=== PATIENT | male | born 1980 | race African-American/Black ===

== ENCOUNTER 2017-01-27 12:33 | Emergency (ER) | payer MEDICAID ==
[~2017-01-27] VITALS: Ht 185.4 cm; Wt 91.0 kg
[2017-01-27 12:56] VITALS: BP 151/94
== END 2017-01-27 19:30 | disposition left against medical advice (07) ==
LOC: ER 12:34
DX: R21 Rash and other nonspecific skin eruption (principal); Z53.21 Procedure and treatment not carried out due to patient leaving prior to being seen by health care provider

== ENCOUNTER 2017-05-10 04:53 | Inpatient (IN) | payer MEDICAID ==
[~2017-05-10] VITALS: Ht 182.9 cm; Wt 80.9 kg
[~2017-05-10 04:53] MED LIST: BENZ100C86 PO; CLIN150C14 PO; HYDR50CA5 PO; METF500T4 PO; NAPR-681 PO; PROAIR HFA INH
[2017-05-10] MEDS ORDERED: SODIUM CHLORIDE 0.9% 1,000 ML IV ONE (05:09)
[2017-05-10 05:30] LABS: BASOPHILS % 1.1 % (0.0-2.0); EOSINOPHILS % 5.9 % (0.0-5.0); HEMATOCRIT. 33.7 % (42.0-52.0); LYMPHOCYTES % 34.9 % (20.0-50.0); MEAN CORPUSCULAR HEMOGLOBIN 27.9 pg (28.0-32.0); MEAN CORPUSCULAR VOLUME 85.4 fL (80.0-94.0); MEAN PLATELET VOLUME 6.9 fl (7.4-10.4); MONOCYTES % 14.7 % (2.0-8.0); NEUTROPHILS % 43.4 % (40.0-76.0); PLATELET 297 x1000/uL (130-400); RED BLOOD CELL COUNT 3.95 mill/uL (4.7-6.1); RED CELL DISTRIBUTION WIDTH 20.4 % (11.6-14.6)
[2017-05-10] MEDS ORDERED: LORAZEPAM 2MG/ML CPJ IV ONE ×4 (05:30→08:30)
[2017-05-10 05:37] LABS: INR 1.2
[2017-05-10 05:42] LABS: AMMONIA 21 uMol/L (<32)
[2017-05-10 05:47] LABS: CARBAMAZEPINE 3.3 ug/mL (4-12); CARBON DIOXIDE 29 mEq/L (21-32); CHLORIDE 105 mEq/L (98-107); CREATINE KINASE 105 IU/L (39-308); ETHANOL BLOOD < 10 mg/dL
[2017-05-10 05:51] LABS: PHENOBARBITAL < 2.1 ug/mL (15.0-40.0); VALPROIC ACID < 3.0 ug/mL (50-100)
[2017-05-10] MEDS ORDERED: SODIUM CHLORIDE 0.9% 1000ML BAG (SEPSIS BOLUS) IV ONE (06:00)
[2017-05-10 06:15] LABS: CLARITY URINE CLOUDY (CLEAR); COLOR URINE DARK YELLOW (YELLOW); KETONES URINE TRACE (NEGATIVE); LEUKOCYTE ESTERASE URINE NEGATIVE (NEGATIVE); NITRITE URINE NEGATIVE (NEGATIVE); OCCULT BLOOD URINE NEGATIVE (NEGATIVE); PROTEIN URINE 2+ (NEGATIVE); SPECIFIC GRAVITY URINE 1.039 (1.005-1.030)
[2017-05-10] MEDS ORDERED: LEVETIRACETAM 500MG PREMIX 100 ML IV ONE (06:15)
[2017-05-10 06:35] LABS: *AMPHETAMINES SCREEN URINE NEGATIVE (NEGATIVE); *BARBITURATES SCREEN URINE NEGATIVE (NEGATIVE); *BENZODIAZEPINES SCREEN URINE PRESUMTIVE POSITIVE (NEGATIVE); *COCAINE SCREEN URINE NEGATIVE (NEGATIVE); CANNABINOID URINE SCREEN PRESUMTIVE POSITIVE (NEGATIVE); METHADONE URINE SCREEN NEGATIVE (NEGATIVE); OPIATES URINE SCREEN PRESUMTIVE POSITIVE (NEGATIVE); PHENCYCLIDINE URINE SCREEN NEGATIVE (NEGATIVE)
[2017-05-10] MEDS ORDERED: DIPHENHYDRAMINE 50MG/ML VIAL IV ONE (07:30)
[2017-05-10] MEDS ORDERED: OLANZAPINE 10 MG/VIAL IM ONE (07:30)
[2017-05-10] MEDS ORDERED: LORAZEPAM 2MG/ML CPJ IV PRN (10:30)
[2017-05-10] MEDS ORDERED: DEXTROSE 50% WATER 50ML SYRINGE IV PRN (12:30)
[2017-05-10] MEDS: INSULIN LISPRO 100 UNITS/ML SUBCUT SCH ×3 (12:50→20:56)
[2017-05-10] MEDS: LEVETIRACETAM 750 MG in SODIUM CHLORIDE 0.9% 100 ML IV SCH ×2 (12:53→20:47)
[2017-05-10] MEDS ORDERED: FOLI-43 PO (14:10)
[2017-05-10] MEDS ORDERED: LEVE500T19 PO (14:10)
[2017-05-10] MEDS ORDERED: Q-PAP PO (14:11)
[2017-05-10] MEDS ORDERED: CYAN10009 PO (14:11)
[2017-05-10] MEDS ORDERED: METO-539 PO (14:13)
[2017-05-10] MEDS ORDERED: PANT40TA4 PO (14:13)
[2017-05-10] MEDS ORDERED: FAMO40TA7 PO (14:15)
[2017-05-10] MEDS ORDERED: DOXE50CA4 PO (14:15)
[2017-05-10] MEDS ORDERED: GABA-529 PO (14:16)
[2017-05-10] MEDS ORDERED: ENAL10TA PO (14:17)
[2017-05-10] MEDS ORDERED: ALLO300T2 PO (14:17)
[2017-05-10] MEDS ORDERED: CLONIDINE 0.1MG TABLET PO PRN (15:15)
[2017-05-10] MEDS: LORAZEPAM 2MG/ML CPJ IV PRN ×2 (17:44→20:47)
[2017-05-10] MEDS: GABAPENTIN 100MG CAPSULE PO SCH (17:56)
[2017-05-10] MEDS: FOLIC ACID 1MG TABLET PO SCH (17:57)
[2017-05-10] MEDS: ALLOPURINOL 300 MG TABLET PO SCH (17:57)
[2017-05-10] MEDS: METOPROLOL TARTRATE 50MG TABLET PO SCH ×2 (17:57→20:46)
[2017-05-10] MEDS: CYANOCOBALAMIN 1000MCG TABLET PO SCH (17:58)
[2017-05-10] MEDS: BLOOD SUGAR DIAGNOSTIC STRIP TEST SCH ×2 (17:59→20:56)
[2017-05-11] MEDS: LORAZEPAM 2MG/ML CPJ IV PRN ×6 (01:59→15:55)
[2017-05-11] MEDS: DIPHENHYDRAMINE 50MG/ML VIAL IV PRN ×2 (05:54→09:30)
[2017-05-11] MEDS: METOPROLOL TARTRATE 50MG TABLET PO SCH ×3 (05:54→21:14)
[2017-05-11] MEDS: INSULIN LISPRO 100 UNITS/ML SUBCUT SCH ×4 (06:34→20:47)
[2017-05-11] MEDS: BLOOD SUGAR DIAGNOSTIC STRIP TEST SCH ×4 (06:34→20:47)
[2017-05-11] MEDS: CYANOCOBALAMIN 1000MCG TABLET PO SCH (09:29)
[2017-05-11] MEDS: FOLIC ACID 1MG TABLET PO SCH (09:30)
[2017-05-11] MEDS: GABAPENTIN 100MG CAPSULE PO SCH ×3 (09:30→17:44)
[2017-05-11] MEDS: ALLOPURINOL 300 MG TABLET PO SCH ×2 (09:30→17:44)
[2017-05-11] MEDS: ENALAPRIL 10MG TABLET PO SCH (09:30)
[2017-05-11] MEDS: LEVETIRACETAM 750 MG in SODIUM CHLORIDE 0.9% 100 ML IV SCH ×2 (09:40→21:14)
[2017-05-12] MEDS: METOPROLOL TARTRATE 50MG TABLET PO SCH ×3 (05:37→21:12)
[2017-05-12] MEDS: INSULIN LISPRO 100 UNITS/ML SUBCUT SCH ×4 (06:22→21:13)
[2017-05-12] MEDS: BLOOD SUGAR DIAGNOSTIC STRIP TEST SCH ×4 (06:22→21:14)
[2017-05-12] MEDS: CYANOCOBALAMIN 1000MCG TABLET PO SCH (08:54)
[2017-05-12] MEDS: GABAPENTIN 100MG CAPSULE PO SCH ×3 (08:54→18:21)
[2017-05-12] MEDS: LEVETIRACETAM 750 MG in SODIUM CHLORIDE 0.9% 100 ML IV SCH ×2 (08:54→21:13)
[2017-05-12] MEDS: DIPHENHYDRAMINE 50MG/ML VIAL IV PRN (08:54)
[2017-05-12] MEDS: ALLOPURINOL 300 MG TABLET PO SCH ×2 (08:54→18:21)
[2017-05-12] MEDS: FOLIC ACID 1MG TABLET PO SCH (08:54)
[2017-05-12] MEDS: ENALAPRIL 10MG TABLET PO SCH (08:55)
[2017-05-12 09:51] LABS: HEMATOCRIT. 33.5 % (42.0-52.0); MEAN CORPUSCULAR HEMOGLOBIN 27.4 pg (28.0-32.0); MEAN CORPUSCULAR VOLUME 83.4 fL (80.0-94.0); MEAN PLATELET VOLUME 7.5 fl (7.4-10.4); PLATELET 246 x1000/uL (130-400); RED BLOOD CELL COUNT 4.01 mill/uL (4.7-6.1); RED CELL DISTRIBUTION WIDTH 20.5 % (11.6-14.6)
[2017-05-12 10:43] LABS: NUCLEATED RED BLOOD CELLS 1 /100 WBC; PLATELET ESTIMATE NORMAL
[2017-05-12 10:54] LABS: CARBON DIOXIDE 29 mEq/L (21-32); CHLORIDE 100 mEq/L (98-107)
[2017-05-12] MEDS ORDERED: MAGNESIUM 1 G PREMIX 100 ML IV NR (13:00)
[2017-05-13] MEDS: METOPROLOL TARTRATE 50MG TABLET PO SCH ×3 (05:54→21:02)
[2017-05-13] MEDS: INSULIN LISPRO 100 UNITS/ML SUBCUT SCH ×4 (07:50→21:00)
[2017-05-13] MEDS: ALLOPURINOL 300 MG TABLET PO SCH ×2 (08:12→18:17)
[2017-05-13] MEDS: LEVETIRACETAM 750 MG in SODIUM CHLORIDE 0.9% 100 ML IV SCH (08:12)
[2017-05-13] MEDS: CYANOCOBALAMIN 1000MCG TABLET PO SCH (08:13)
[2017-05-13] MEDS: FOLIC ACID 1MG TABLET PO SCH (08:13)
[2017-05-13] MEDS: ENALAPRIL 10MG TABLET PO SCH (08:13)
[2017-05-13] MEDS: GABAPENTIN 100MG CAPSULE PO SCH ×3 (08:13→18:18)
[2017-05-13] MEDS: BLOOD SUGAR DIAGNOSTIC STRIP TEST SCH ×4 (08:18→20:53)
[2017-05-13] MEDS ORDERED: HALOPERIDOL 5MG TABLET PO PRN (11:30)
[2017-05-13] MEDS: DIPHENHYDRAMINE 25MG CAPSULE PO PRN (18:18)
[2017-05-13] MEDS: LEVETIRACETAM 500MG TABLET PO SCH (21:01)
[2017-05-14] MEDS: METOPROLOL TARTRATE 50MG TABLET PO SCH ×3 (05:45→21:15)
[2017-05-14] MEDS: BLOOD SUGAR DIAGNOSTIC STRIP TEST SCH ×4 (06:27→21:15)
[2017-05-14] MEDS: INSULIN LISPRO 100 UNITS/ML SUBCUT SCH ×4 (07:38→21:00)
[2017-05-14] MEDS: LEVETIRACETAM 500MG TABLET PO SCH ×2 (08:49→21:15)
[2017-05-14] MEDS: ENALAPRIL 10MG TABLET PO SCH (08:49)
[2017-05-14] MEDS: ALLOPURINOL 300 MG TABLET PO SCH ×2 (08:49→17:47)
[2017-05-14] MEDS: CYANOCOBALAMIN 1000MCG TABLET PO SCH (08:50)
[2017-05-14] MEDS: GABAPENTIN 100MG CAPSULE PO SCH ×3 (08:50→17:47)
[2017-05-14] MEDS: FOLIC ACID 1MG TABLET PO SCH (08:50)
[2017-05-15] MEDS: METOPROLOL TARTRATE 50MG TABLET PO SCH ×3 (05:48→21:13)
[2017-05-15] MEDS: BLOOD SUGAR DIAGNOSTIC STRIP TEST SCH ×4 (06:53→21:13)
[2017-05-15 07:14] LABS: HEMATOCRIT. 32.6 % (42.0-52.0); HEMOGLOBIN. 10.7 g/dL (14.0-18.0); MEAN CORPUSCULAR HEMOGLOBIN 27.3 pg (28.0-32.0); MEAN PLATELET VOLUME 7.6 fl (7.4-10.4); PLATELET 238 x1000/uL (130-400); RED BLOOD CELL COUNT 3.93 mill/uL (4.7-6.1); RED CELL DISTRIBUTION WIDTH 20.2 % (11.6-14.6)
[2017-05-15] MEDS: INSULIN LISPRO 100 UNITS/ML SUBCUT SCH ×4 (07:50→21:00)
[2017-05-15 08:23] LABS: CARBON DIOXIDE 28 mEq/L (21-32); CHLORIDE 101 mEq/L (98-107)
[2017-05-15] MEDS: CYANOCOBALAMIN 1000MCG TABLET PO SCH (09:59)
[2017-05-15] MEDS: ENALAPRIL 10MG TABLET PO SCH (09:59)
[2017-05-15] MEDS: FOLIC ACID 1MG TABLET PO SCH (09:59)
[2017-05-15] MEDS: LEVETIRACETAM 500MG TABLET PO SCH ×2 (09:59→21:13)
[2017-05-15] MEDS: ALLOPURINOL 300 MG TABLET PO SCH ×2 (10:00→18:50)
[2017-05-15] MEDS: GABAPENTIN 100MG CAPSULE PO SCH ×3 (10:00→18:50)
[2017-05-15 14:14] LABS: PLATELET ESTIMATE NORMAL
[2017-05-15] MEDS: DIPHENHYDRAMINE 25MG CAPSULE PO PRN (21:13)
[2017-05-16] MEDS: METOPROLOL TARTRATE 50MG TABLET PO SCH ×3 (06:11→23:02)
[2017-05-16] MEDS: BLOOD SUGAR DIAGNOSTIC STRIP TEST SCH ×4 (06:27→21:00)
[2017-05-16] MEDS: INSULIN LISPRO 100 UNITS/ML SUBCUT SCH ×4 (07:50→21:00)
[2017-05-16] MEDS: FOLIC ACID 1MG TABLET PO SCH (10:33)
[2017-05-16] MEDS: GABAPENTIN 100MG CAPSULE PO SCH ×3 (10:33→18:36)
[2017-05-16] MEDS: ALLOPURINOL 300 MG TABLET PO SCH ×2 (10:33→18:36)
[2017-05-16] MEDS: LEVETIRACETAM 500MG TABLET PO SCH ×2 (10:33→23:00)
[2017-05-16] MEDS: CYANOCOBALAMIN 1000MCG TABLET PO SCH (10:34)
[2017-05-16] MEDS: ENALAPRIL 10MG TABLET PO SCH (10:34)
[2017-05-17] MEDS: METOPROLOL TARTRATE 50MG TABLET PO SCH ×3 (07:00→22:07)
[2017-05-17] MEDS: BLOOD SUGAR DIAGNOSTIC STRIP TEST SCH ×4 (09:43→21:00)
[2017-05-17] MEDS: ALLOPURINOL 300 MG TABLET PO SCH ×2 (09:44→19:40)
[2017-05-17] MEDS: FOLIC ACID 1MG TABLET PO SCH (09:44)
[2017-05-17] MEDS: GABAPENTIN 100MG CAPSULE PO SCH ×3 (09:44→19:40)
[2017-05-17] MEDS: CYANOCOBALAMIN 1000MCG TABLET PO SCH (09:44)
[2017-05-17] MEDS: LEVETIRACETAM 500MG TABLET PO SCH ×2 (09:45→22:07)
[2017-05-17] MEDS: INSULIN LISPRO 100 UNITS/ML SUBCUT SCH ×4 (10:10→21:00)
[2017-05-17 10:33] LABS: EOSINOPHILS % 4.4 % (0.0-5.0); HEMATOCRIT. 35.5 % (42.0-52.0); HEMOGLOBIN. 11.7 g/dL (14.0-18.0); LYMPHOCYTES % 14.2 % (20.0-50.0); MEAN CORPUSCULAR HEMOGLOBIN 27.6 pg (28.0-32.0); MEAN CORPUSCULAR VOLUME 83.5 fL (80.0-94.0); NEUTROPHILS % 67.4 % (40.0-76.0); PLATELET 255 x1000/uL (130-400); RED BLOOD CELL COUNT 4.24 mill/uL (4.7-6.1); RED CELL DISTRIBUTION WIDTH 20.2 % (11.6-14.6)
[2017-05-17 10:52] LABS: CARBON DIOXIDE 28 mEq/L (21-32); CHLORIDE 103 mEq/L (98-107)
[2017-05-17] MEDS: DIPHENHYDRAMINE 25MG CAPSULE PO PRN (11:55)
[2017-05-17] MEDS: ENALAPRIL 10MG TABLET PO SCH (11:55)
[2017-05-18] MEDS: BLOOD SUGAR DIAGNOSTIC STRIP TEST SCH ×4 (07:39→21:00)
[2017-05-18] MEDS: METOPROLOL TARTRATE 50MG TABLET PO SCH ×3 (07:40→22:14)
[2017-05-18] MEDS: INSULIN LISPRO 100 UNITS/ML SUBCUT SCH ×4 (07:44→21:00)
[2017-05-18] MEDS: FOLIC ACID 1MG TABLET PO SCH (10:06)
[2017-05-18] MEDS: CYANOCOBALAMIN 1000MCG TABLET PO SCH (10:06)
[2017-05-18] MEDS: LEVETIRACETAM 500MG TABLET PO SCH ×2 (10:06→22:14)
[2017-05-18] MEDS: GABAPENTIN 100MG CAPSULE PO SCH ×3 (10:07→17:33)
[2017-05-18] MEDS: ALLOPURINOL 300 MG TABLET PO SCH ×2 (10:07→17:33)
[2017-05-18] MEDS: ENALAPRIL 10MG TABLET PO SCH (10:07)
[2017-05-19] MEDS: BLOOD SUGAR DIAGNOSTIC STRIP TEST SCH ×4 (06:30→21:00)
[2017-05-19] MEDS: METOPROLOL TARTRATE 50MG TABLET PO SCH ×3 (06:30→22:00)
[2017-05-19] MEDS: INSULIN LISPRO 100 UNITS/ML SUBCUT SCH ×4 (06:30→21:00)
[2017-05-19] MEDS: LEVETIRACETAM 500MG TABLET PO SCH (10:06)
[2017-05-19] MEDS: ALLOPURINOL 300 MG TABLET PO SCH ×2 (10:07→17:25)
[2017-05-19] MEDS: ENALAPRIL 10MG TABLET PO SCH (10:07)
[2017-05-19] MEDS: FOLIC ACID 1MG TABLET PO SCH (10:07)
[2017-05-19] MEDS: GABAPENTIN 100MG CAPSULE PO SCH ×3 (10:07→17:25)
[2017-05-19] MEDS: CYANOCOBALAMIN 1000MCG TABLET PO SCH (10:07)
[2017-05-19] MEDS: LEVETIRACETAM 250MG TABLET PO SCH (22:01)
[2017-05-20] MEDS: METOPROLOL TARTRATE 50MG TABLET PO SCH ×3 (05:47→21:16)
[2017-05-20] MEDS: BLOOD SUGAR DIAGNOSTIC STRIP TEST SCH ×4 (06:52→21:00)
[2017-05-20] MEDS: INSULIN LISPRO 100 UNITS/ML SUBCUT SCH ×4 (07:50→21:00)
[2017-05-20] MEDS: FOLIC ACID 1MG TABLET PO SCH (10:31)
[2017-05-20] MEDS: ALLOPURINOL 300 MG TABLET PO SCH ×2 (10:31→18:44)
[2017-05-20] MEDS: CYANOCOBALAMIN 1000MCG TABLET PO SCH (10:31)
[2017-05-20] MEDS: GABAPENTIN 100MG CAPSULE PO SCH ×3 (10:31→18:44)
[2017-05-20] MEDS: ENALAPRIL 10MG TABLET PO SCH (10:33)
[2017-05-20] MEDS: LEVETIRACETAM 250MG TABLET PO SCH ×2 (10:33→21:15)
[2017-05-21] MEDS: METOPROLOL TARTRATE 50MG TABLET PO SCH ×3 (06:10→21:51)
[2017-05-21] MEDS: BLOOD SUGAR DIAGNOSTIC STRIP TEST SCH ×4 (07:20→21:51)
[2017-05-21 07:27] LABS: BASOPHILS % 0.9 % (0.0-2.0); EOSINOPHILS % 4.6 % (0.0-5.0); HEMATOCRIT. 34.3 % (42.0-52.0); HEMOGLOBIN. 11.2 g/dL (14.0-18.0); LYMPHOCYTES % 9.5 % (20.0-50.0); MEAN CORPUSCULAR HEMOGLOBIN 27.2 pg (28.0-32.0); MEAN CORPUSCULAR VOLUME 83.4 fL (80.0-94.0); MEAN PLATELET VOLUME 8.5 fl (7.4-10.4); MONOCYTES % 12.4 % (2.0-8.0); NEUTROPHILS % 72.6 % (40.0-76.0); PLATELET 241 x1000/uL (130-400); RED BLOOD CELL COUNT 4.11 mill/uL (4.7-6.1); RED CELL DISTRIBUTION WIDTH 19.5 % (11.6-14.6)
[2017-05-21] MEDS: INSULIN LISPRO 100 UNITS/ML SUBCUT SCH ×4 (07:47→21:00)
[2017-05-21 07:50] LABS: CHLORIDE 98 mEq/L (98-107)
[2017-05-21 07:52] LABS: CARBON DIOXIDE 28 mEq/L (21-32)
[2017-05-21] MEDS: ENALAPRIL 10MG TABLET PO SCH (09:00)
[2017-05-21] MEDS: GABAPENTIN 100MG CAPSULE PO SCH ×3 (09:29→18:30)
[2017-05-21] MEDS: FOLIC ACID 1MG TABLET PO SCH (09:29)
[2017-05-21] MEDS: LEVETIRACETAM 250MG TABLET PO SCH ×2 (09:29→21:50)
[2017-05-21] MEDS: ALLOPURINOL 300 MG TABLET PO SCH ×2 (09:29→18:30)
[2017-05-21] MEDS: CYANOCOBALAMIN 1000MCG TABLET PO SCH (09:29)
[2017-05-21] MEDS: DIPHENHYDRAMINE 25MG CAPSULE PO PRN (21:50)
[2017-05-22] MEDS: METOPROLOL TARTRATE 50MG TABLET PO SCH ×3 (06:00→21:07)
[2017-05-22] MEDS: BLOOD SUGAR DIAGNOSTIC STRIP TEST SCH ×4 (06:11→21:07)
[2017-05-22] MEDS: INSULIN LISPRO 100 UNITS/ML SUBCUT SCH ×4 (07:50→21:00)
[2017-05-22] MEDS: ALLOPURINOL 300 MG TABLET PO SCH ×2 (09:37→16:33)
[2017-05-22] MEDS: FOLIC ACID 1MG TABLET PO SCH (09:38)
[2017-05-22] MEDS: LEVETIRACETAM 250MG TABLET PO SCH ×2 (09:38→21:07)
[2017-05-22] MEDS: ENALAPRIL 10MG TABLET PO SCH (09:38)
[2017-05-22] MEDS: CYANOCOBALAMIN 1000MCG TABLET PO SCH (09:38)
[2017-05-22] MEDS: GABAPENTIN 100MG CAPSULE PO SCH ×3 (09:38→16:33)
[2017-05-22 15:21] LABS: BASOPHILS % 0.3 % (0.0-2.0); EOSINOPHILS % 4.2 % (0.0-5.0); HEMATOCRIT. 33.2 % (42.0-52.0); HEMOGLOBIN. 10.7 g/dL (14.0-18.0); LYMPHOCYTES % 8.5 % (20.0-50.0); MEAN CORPUSCULAR HEMOGLOBIN 26.8 pg (28.0-32.0); MEAN CORPUSCULAR VOLUME 83.5 fL (80.0-94.0); MEAN PLATELET VOLUME 7.8 fl (7.4-10.4); MONOCYTES % 10.5 % (2.0-8.0); NEUTROPHILS % 76.5 % (40.0-76.0); PLATELET 245 x1000/uL (130-400); RED BLOOD CELL COUNT 3.98 mill/uL (4.7-6.1); RED CELL DISTRIBUTION WIDTH 19.4 % (11.6-14.6)
[2017-05-22 15:38] LABS: CARBON DIOXIDE 30 mEq/L (21-32); CHLORIDE 101 mEq/L (98-107)
[2017-05-22] MEDS: DIPHENHYDRAMINE 25MG CAPSULE PO PRN (16:32)
[2017-05-23] MEDS: BLOOD SUGAR DIAGNOSTIC STRIP TEST SCH ×4 (06:22→21:03)
[2017-05-23] MEDS: METOPROLOL TARTRATE 50MG TABLET PO SCH ×3 (06:22→21:06)
[2017-05-23] MEDS: INSULIN LISPRO 100 UNITS/ML SUBCUT SCH ×4 (07:50→21:00)
[2017-05-23] MEDS: LEVETIRACETAM 250MG TABLET PO SCH ×2 (09:05→21:05)
[2017-05-23] MEDS: ALLOPURINOL 300 MG TABLET PO SCH ×2 (09:06→16:48)
[2017-05-23] MEDS: FOLIC ACID 1MG TABLET PO SCH (09:06)
[2017-05-23] MEDS: GABAPENTIN 100MG CAPSULE PO SCH ×3 (09:06→16:48)
[2017-05-23] MEDS: CYANOCOBALAMIN 1000MCG TABLET PO SCH (09:06)
[2017-05-23] MEDS: ENALAPRIL 10MG TABLET PO SCH (09:07)
[2017-05-23 09:26] LABS: BASOPHILS % 0.6 % (0.0-2.0); EOSINOPHILS % 3.4 % (0.0-5.0); HEMATOCRIT. 38.1 % (42.0-52.0); HEMOGLOBIN. 12.3 g/dL (14.0-18.0); LYMPHOCYTES % 7.5 % (20.0-50.0); MEAN CORPUSCULAR HEMOGLOBIN 27.4 pg (28.0-32.0); MEAN PLATELET VOLUME 8.2 fl (7.4-10.4); MONOCYTES % 8.6 % (2.0-8.0); NEUTROPHILS % 79.9 % (40.0-76.0); PLATELET 205 x1000/uL (130-400); RED BLOOD CELL COUNT 4.48 mill/uL (4.7-6.1); RED CELL DISTRIBUTION WIDTH 19.8 % (11.6-14.6)
[2017-05-23 09:50] LABS: CARBON DIOXIDE 29 mEq/L (21-32); CHLORIDE 102 mEq/L (98-107)
[2017-05-24] MEDS: METOPROLOL TARTRATE 50MG TABLET PO SCH ×3 (06:00→21:50)
[2017-05-24] MEDS: BLOOD SUGAR DIAGNOSTIC STRIP TEST SCH ×4 (06:43→21:51)
[2017-05-24] MEDS: INSULIN LISPRO 100 UNITS/ML SUBCUT SCH ×4 (07:24→21:49)
[2017-05-24] MEDS: LEVETIRACETAM 250MG TABLET PO SCH ×2 (09:09→21:50)
[2017-05-24] MEDS: ALLOPURINOL 300 MG TABLET PO SCH ×2 (09:10→16:53)
[2017-05-24] MEDS: CYANOCOBALAMIN 1000MCG TABLET PO SCH (09:10)
[2017-05-24] MEDS: FOLIC ACID 1MG TABLET PO SCH (09:10)
[2017-05-24] MEDS: GABAPENTIN 100MG CAPSULE PO SCH ×3 (09:10→16:53)
[2017-05-24] MEDS: ENALAPRIL 10MG TABLET PO SCH (09:11)
[2017-05-24] MEDS: DIPHENHYDRAMINE 25MG CAPSULE PO PRN (18:54)
[2017-05-25] MEDS: DIPHENHYDRAMINE 25MG CAPSULE PO PRN ×2 (03:57→08:40)
[2017-05-25] MEDS: METOPROLOL TARTRATE 50MG TABLET PO SCH ×3 (06:00→22:00)
[2017-05-25 06:41] LABS: BASOPHILS % 0.8 % (0.0-2.0); EOSINOPHILS % 3.4 % (0.0-5.0); HEMATOCRIT. 30.8 % (42.0-52.0); HEMOGLOBIN. 10.1 g/dL (14.0-18.0); LYMPHOCYTES % 8.5 % (20.0-50.0); MEAN PLATELET VOLUME 8.2 fl (7.4-10.4); MONOCYTES % 10.5 % (2.0-8.0); NEUTROPHILS % 76.8 % (40.0-76.0); PLATELET 254 x1000/uL (130-400); RED BLOOD CELL COUNT 3.76 mill/uL (4.7-6.1); RED CELL DISTRIBUTION WIDTH 19.2 % (11.6-14.6)
[2017-05-25 07:04] LABS: CARBON DIOXIDE 29 mEq/L (21-32); CHLORIDE 100 mEq/L (98-107)
[2017-05-25] MEDS: INSULIN LISPRO 100 UNITS/ML SUBCUT SCH ×4 (07:09→21:00)
[2017-05-25] MEDS: BLOOD SUGAR DIAGNOSTIC STRIP TEST SCH ×4 (07:40→21:00)
[2017-05-25] MEDS: GABAPENTIN 100MG CAPSULE PO SCH ×3 (08:39→16:39)
[2017-05-25] MEDS: ALLOPURINOL 300 MG TABLET PO SCH ×2 (08:40→16:39)
[2017-05-25] MEDS: FOLIC ACID 1MG TABLET PO SCH (08:40)
[2017-05-25] MEDS: CYANOCOBALAMIN 1000MCG TABLET PO SCH (08:40)
[2017-05-25] MEDS: LEVETIRACETAM 250MG TABLET PO SCH ×2 (08:40→21:00)
[2017-05-25] MEDS: ENALAPRIL 10MG TABLET PO SCH (08:42)
[2017-05-25] MEDS ORDERED: HALOPERIDOL LACTATE 5MG/ML VIAL IM PRN (20:30)
[2017-05-25] MEDS: HALOPERIDOL LACTATE 5MG/ML VIAL IM PRN (22:33)
[2017-05-26] MEDS: HALOPERIDOL LACTATE 5MG/ML VIAL IM PRN ×4 (02:50→20:36)
[2017-05-26] MEDS: DIPHENHYDRAMINE 50MG CAPSULE PO PRN ×3 (02:50→18:25)
[2017-05-26 05:27] LABS: HEMATOCRIT. 31.5 % (42.0-52.0); HEMOGLOBIN. 10.4 g/dL (14.0-18.0); MEAN CORPUSCULAR HEMOGLOBIN 27.3 pg (28.0-32.0); MEAN CORPUSCULAR VOLUME 82.8 fL (80.0-94.0); MEAN PLATELET VOLUME 8.4 fl (7.4-10.4); PLATELET 229 x1000/uL (130-400); RED BLOOD CELL COUNT 3.81 mill/uL (4.7-6.1); RED CELL DISTRIBUTION WIDTH 19.5 % (11.6-14.6)
[2017-05-26] MEDS: INSULIN LISPRO 100 UNITS/ML SUBCUT SCH ×4 (05:41→20:53)
[2017-05-26] MEDS: BLOOD SUGAR DIAGNOSTIC STRIP TEST SCH ×4 (05:41→20:53)
[2017-05-26] MEDS: METOPROLOL TARTRATE 50MG TABLET PO SCH ×3 (05:44→21:54)
[2017-05-26 06:17] LABS: CARBON DIOXIDE 24 mEq/L (21-32); CHLORIDE 103 mEq/L (98-107)
[2017-05-26] MEDS: ENALAPRIL 10MG TABLET PO SCH (09:00)
[2017-05-26] MEDS: LEVETIRACETAM 250MG TABLET PO SCH ×2 (09:03→20:33)
[2017-05-26] MEDS: GABAPENTIN 100MG CAPSULE PO SCH ×3 (09:03→17:13)
[2017-05-26] MEDS: FOLIC ACID 1MG TABLET PO SCH (09:03)
[2017-05-26] MEDS: CYANOCOBALAMIN 1000MCG TABLET PO SCH (09:04)
[2017-05-26 10:08] LABS: NUCLEATED RED BLOOD CELLS 1 /100 WBC; PLATELET ESTIMATE NORMAL
[2017-05-26] MEDS: ALLOPURINOL 300 MG TABLET PO SCH ×2 (10:26→17:13)
[2017-05-27] MEDS: DIPHENHYDRAMINE 50MG CAPSULE PO PRN ×2 (00:34→09:01)
[2017-05-27 05:28] LABS: HEMATOCRIT. 31.5 % (42.0-52.0); HEMOGLOBIN. 10.2 g/dL (14.0-18.0); MEAN CORPUSCULAR HEMOGLOBIN 26.8 pg (28.0-32.0); MEAN CORPUSCULAR VOLUME 82.5 fL (80.0-94.0); MEAN PLATELET VOLUME 8.2 fl (7.4-10.4); PLATELET 286 x1000/uL (130-400); RED BLOOD CELL COUNT 3.81 mill/uL (4.7-6.1); RED CELL DISTRIBUTION WIDTH 19.4 % (11.6-14.6)
[2017-05-27] MEDS: METOPROLOL TARTRATE 50MG TABLET PO SCH ×3 (06:00→22:00)
[2017-05-27] MEDS: INSULIN LISPRO 100 UNITS/ML SUBCUT SCH ×4 (06:14→21:00)
[2017-05-27] MEDS: BLOOD SUGAR DIAGNOSTIC STRIP TEST SCH ×4 (06:14→21:10)
[2017-05-27 06:43] LABS: CARBON DIOXIDE 30 mEq/L (21-32); CHLORIDE 102 mEq/L (98-107)
[2017-05-27] MEDS: CYANOCOBALAMIN 1000MCG TABLET PO SCH (08:58)
[2017-05-27] MEDS: FOLIC ACID 1MG TABLET PO SCH (08:58)
[2017-05-27] MEDS: ALLOPURINOL 300 MG TABLET PO SCH ×2 (09:00→16:27)
[2017-05-27] MEDS: LEVETIRACETAM 250MG TABLET PO SCH ×2 (09:00→21:10)
[2017-05-27] MEDS: GABAPENTIN 100MG CAPSULE PO SCH ×3 (09:00→16:27)
[2017-05-27] MEDS: ENALAPRIL 10MG TABLET PO SCH (09:00)
[2017-05-27 11:07] LABS: PLATELET ESTIMATE NORMAL
[2017-05-27] MEDS: QUETIAPINE FUMARATE 100MG TABLET PO SCH (11:10)
[2017-05-28] MEDS: DIPHENHYDRAMINE 50MG CAPSULE PO PRN
[2017-05-28] MEDS: HALOPERIDOL LACTATE 5MG/ML VIAL IM PRN (00:50)
[2017-05-28] MEDS: METOPROLOL TARTRATE 50MG TABLET PO SCH (06:00)
[2017-05-28] MEDS: BLOOD SUGAR DIAGNOSTIC STRIP TEST SCH (06:22)
[2017-05-28] MEDS: INSULIN LISPRO 100 UNITS/ML SUBCUT SCH (06:23)
[2017-05-28 08:00] VITALS: BP 138/101
[2017-05-28] MEDS ORDERED: HALOPERIDOL 2MG TABLET PO PRN (08:00)
[2017-05-28] MEDS: ALLOPURINOL 300 MG TABLET PO SCH (08:04)
[2017-05-28] MEDS: CYANOCOBALAMIN 1000MCG TABLET PO SCH (08:04)
[2017-05-28] MEDS: FOLIC ACID 1MG TABLET PO SCH (08:04)
[2017-05-28] MEDS: GABAPENTIN 100MG CAPSULE PO SCH (08:04)
[2017-05-28] MEDS: QUETIAPINE FUMARATE 100MG TABLET PO SCH (08:04)
[2017-05-28] MEDS: ENALAPRIL 10MG TABLET PO SCH (08:04)
[2017-05-28] MEDS: LEVETIRACETAM 250MG TABLET PO SCH (08:05)
== END 2017-05-28 08:36 | disposition left against medical advice (07) | DRG 53 ==
LOC: ER 04:53 → 6WST 06:14 → EDBEDREQ 06:17 → ENRESERV 06:56 → 6WST 11:08 → 6EST 05-16 20:00 → 6WST 05-24 17:44 → MICUSO 05-25 23:05 → MICUNO 05-26 01:09
PROVIDERS: ADMIT Internal Medicine; ATTEND Internal Medicine
DX: G40.909 Epilepsy, unspecified, not intractable, without status epilepticus (principal); R65.11 Systemic inflammatory response syndrome (SIRS) of non-infectious origin with acute organ dysfunction; C85.90 Non-Hodgkin lymphoma, unspecified, unspecified site; E10.9 Type 1 diabetes mellitus without complications; D63.8 Anemia in other chronic diseases classified elsewhere; I10 Essential (primary) hypertension; F17.210 Nicotine dependence, cigarettes, uncomplicated; L29.9 Pruritus, unspecified; M19.90 Unspecified osteoarthritis, unspecified site; Y90.0 Blood alcohol level of less than 20 mg/100 ml; K21.9 Gastro-esophageal reflux disease without esophagitis; Z92.21 Personal history of antineoplastic chemotherapy; Z86.73 Personal history of transient ischemic attack (TIA), and cerebral infarction without residual deficits; Z79.84 Long term (current) use of oral hypoglycemic drugs; Z79.899 Other long term (current) drug therapy; Z22.322 Carrier or suspected carrier of Methicillin resistant Staphylococcus aureus
CPT/HCPCS: 36415; 70450; 70551; 71010; 78582; 80048; 80053; 80156; 80165; 80184; 80185; 80305; 81001; 82140; 82542; 82550; 82962; 83605; 83735; 84443; 85025; 85379; 85610; 87040; 87086; 93005; 93306; 96361; 96365; 96372; 96375; 96376; 97116; 97163; 97167; 97168; 99285; A9558; G0482; J1200; J1630; J1815; J1953; J2060; J3475; J3490; J7030; J7050; Q0163; A4315

== ENCOUNTER 2017-05-28 10:55 | Inpatient (IN) | payer MEDICAID ==
[~2017-05-28] VITALS: Ht 180.3 cm; Wt 77.1 kg
[~2017-05-28 10:55] MED LIST changes: +ALLO300T2 PO; +CYAN10009 PO; +DOXE50CA4 PO; +ENAL10TA PO; +FAMO40TA7 PO; +FOLI-43 PO; +GABA-529 PO; +LEVE500T19 PO; +METO50TA5 PO; +PANT40TA4 PO; +Q-PAP PO
[2017-05-28] MEDS ORDERED: SODIUM CHLORIDE 0.9% 1,000 ML IV ONE ×2 (11:12→15:20)
[2017-05-28] MEDS ORDERED: LORAZEPAM 2MG/ML CPJ IV ONE ×3 (11:45→17:45)
[2017-05-28] MEDS ORDERED: LORAZEPAM 2MG/ML CPJ IM STA ×2 (12:05→12:51)
[2017-05-28] MEDS ORDERED: OLANZAPINE 10 MG/VIAL IM ONE ×2 (12:15→17:45)
[2017-05-28 13:27] LABS: HEMATOCRIT. 27.7 % (42.0-52.0); HEMOGLOBIN. 9.1 g/dL (14.0-18.0); MEAN CORPUSCULAR HEMOGLOBIN 27.1 pg (28.0-32.0); MEAN CORPUSCULAR VOLUME 82.5 fL (80.0-94.0); MEAN PLATELET VOLUME 7.9 fl (7.4-10.4); PLATELET 293 x1000/uL (130-400); RED BLOOD CELL COUNT 3.36 mill/uL (4.7-6.1); RED CELL DISTRIBUTION WIDTH 19.2 % (11.6-14.6)
[2017-05-28 13:35] LABS: INR 1.3; PROTHROMBIN TIME 13.2 sec (9.4-11.6)
[2017-05-28 13:42] LABS: PLATELET ESTIMATE NORMAL
[2017-05-28 13:45] LABS: CARBON DIOXIDE 27 mEq/L (21-32); CHLORIDE 102 mEq/L (98-107); TROPONIN I < 0.02 ng/mL (0.00-0.04)
[2017-05-28 15:16] LABS: CLARITY URINE CLEAR (CLEAR); COLOR URINE DARK YELLOW (YELLOW); GLUCOSE URINE NEGATIVE (NEGATIVE); KETONES URINE TRACE (NEGATIVE); LEUKOCYTE ESTERASE URINE TRACE (NEGATIVE); NITRITE URINE NEGATIVE (NEGATIVE); OCCULT BLOOD URINE NEGATIVE (NEGATIVE); PROTEIN URINE TRACE (NEGATIVE); SPECIFIC GRAVITY URINE 1.029 (1.005-1.030); UROBILINOGEN URINE 0.2 E.U./dL (0.2-1.0)
[2017-05-28 15:48] LABS: *AMPHETAMINES SCREEN URINE NEGATIVE (NEGATIVE); *BARBITURATES SCREEN URINE NEGATIVE (NEGATIVE); *BENZODIAZEPINES SCREEN URINE NEGATIVE (NEGATIVE); *COCAINE SCREEN URINE NEGATIVE (NEGATIVE); CANNABINOID URINE SCREEN NEGATIVE (NEGATIVE); METHADONE URINE SCREEN NEGATIVE (NEGATIVE); OPIATES URINE SCREEN NEGATIVE (NEGATIVE); PHENCYCLIDINE URINE SCREEN NEGATIVE (NEGATIVE)
[2017-05-28] MEDS ORDERED: LEVOFLOXACIN 750MG PREMIX 150 ML IV ONE (17:00)
[2017-05-28] MEDS ORDERED: CLONIDINE 0.1MG TABLET PO PRN (17:45)
[2017-05-28] MEDS ORDERED: NA PHOS,M-B/NA PHOS,DI-BA ENEMA 118ML PR PRN (17:45)
[2017-05-28] MEDS ORDERED: ACETAMINOPHEN 650MG SUPP PR PRN (17:45)
[2017-05-28] MEDS ORDERED: IPRATROPIUM/ALBUTEROL 0.5-3(2.5)MG/3ML NEB INH PRN (17:45)
[2017-05-28] MEDS ORDERED: DOCUSATE SODIUM 100MG CAPSULE PO PRN (17:45)
[2017-05-28] MEDS ORDERED: ONDANSETRON HCL 4MG/2ML VIAL IV PRN (17:45)
[2017-05-28] MEDS ORDERED: MAGNESIUM/ALUMINUM HYDROXIDE/SIMETHICONE 30ML UDC PO PRN (17:45)
[2017-05-28] MEDS ORDERED: DIPHENHYDRAMINE 50MG/ML VIAL IV ONE (17:45)
[2017-05-28 20:46] VITALS: BP 127/78
[2017-05-28 21:00] VITALS: BP 133/64
[2017-05-28] MEDS: SODIUM CHLORIDE 0.45% 1,000 ML IV SCH (21:19)
[2017-05-28 21:31] VITALS: BP 136/66
[2017-05-28 22:00] VITALS: BP 131/72
[2017-05-28] MEDS: SODIUM CHLORIDE 0.9% INJ 3ML FLUSH IVF SCH (22:25)
[2017-05-28] MEDS: LEVETIRACETAM 500 MG in SODIUM CHLORIDE 0.9% 100 ML IV SCH (22:46)
[2017-05-28 23:00] VITALS: BP 121/26
[2017-05-28] MEDS ORDERED: CEFTRIAXONE 1 G PREMIX 50 ML IV SCH (23:00)
[2017-05-28] MEDS ORDERED: AZITHROMYCIN 500 MG in DEXT 5% WATER 250 ML IV SCH (23:00)
[2017-05-29] VITALS (70 sets, daily range): BP systolic 62–170; BP diastolic 26–130
[2017-05-29] MEDS: IPRATROPIUM/ALBUTEROL 0.5-3(2.5)MG/3ML NEB INH SCH ×4 (01:45→19:49)
[2017-05-29] MEDS: DIPHENHYDRAMINE 50MG/ML VIAL IV PRN ×5 (03:03→20:17)
[2017-05-29] MEDS: LORAZEPAM 2MG/ML CPJ IV PRN ×5 (03:03→20:16)
[2017-05-29] MEDS: SODIUM CHLORIDE 0.9% INJ 3ML FLUSH IVF SCH ×3 (06:06→21:08)
[2017-05-29] MEDS ORDERED: QUETIAPINE FUMARATE 100MG TABLET PO SCH ×2 (06:35→21:00)
[2017-05-29] MEDS: METOPROLOL TARTRATE 50MG TABLET PO SCH ×3 (06:38→22:00)
[2017-05-29] MEDS: ACETAMINOPHEN 650MG/20.3ML UDC GT PRN ×2 (07:47→12:36)
[2017-05-29] MEDS: CEFTRIAXONE 1 G PREMIX 50 ML IV SCH (08:08)
[2017-05-29] MEDS: MORPHINE SULFATE 4 MG/ML CPJ (NOT FOR IM USE) IV PRN ×2 (08:11→23:37)
[2017-05-29] MEDS: ENOXAPARIN 40MG/0.4ML SYR SUBCUT SCH (08:26)
[2017-05-29] MEDS: HALOPERIDOL LACTATE 5MG/ML VIAL IM PRN ×2 (09:09→18:39)
[2017-05-29 09:47] LABS: CLARITY URINE CLEAR (CLEAR); COLOR URINE YELLOW (YELLOW); GLUCOSE URINE NEGATIVE (NEGATIVE); KETONES URINE 1+ (NEGATIVE); LEUKOCYTE ESTERASE URINE NEGATIVE (NEGATIVE); NITRITE URINE NEGATIVE (NEGATIVE); OCCULT BLOOD URINE NEGATIVE (NEGATIVE); PH URINE 5.5 (4.5-8.0); PROTEIN URINE NEGATIVE (NEGATIVE); UROBILINOGEN URINE 0.2 E.U./dL (0.2-1.0)
[2017-05-29] MEDS ORDERED: OLANZAPINE 10 MG/VIAL IM SCH (10:15)
[2017-05-29 10:20] LABS: *AMPHETAMINES SCREEN URINE NEGATIVE (NEGATIVE); *BARBITURATES SCREEN URINE NEGATIVE (NEGATIVE); *BENZODIAZEPINES SCREEN URINE NEGATIVE (NEGATIVE); *COCAINE SCREEN URINE NEGATIVE (NEGATIVE); CANNABINOID URINE SCREEN NEGATIVE (NEGATIVE); METHADONE URINE SCREEN NEGATIVE (NEGATIVE); OPIATES URINE SCREEN PRESUMTIVE POSITIVE (NEGATIVE); PHENCYCLIDINE URINE SCREEN NEGATIVE (NEGATIVE)
[2017-05-29] MEDS: AZITHROMYCIN 500 MG in DEXT 5% WATER 250 ML IV SCH (10:30)
[2017-05-29] MEDS ORDERED: HALOPERIDOL LACTATE 5MG/ML VIAL IM NR (10:30)
[2017-05-29] MEDS: LEVETIRACETAM 500 MG in SODIUM CHLORIDE 0.9% 100 ML IV SCH ×2 (11:06→23:03)
[2017-05-29] MEDS ORDERED: BENZTROPINE MESYLATE 1MG TABLET PO NR (11:30)
[2017-05-29] MEDS: SODIUM CHLORIDE 0.45% 1,000 ML IV SCH (15:33)
[2017-05-29] MEDS: BENZTROPINE MESYLATE 1MG TABLET PO SCH (20:13)
[2017-05-29] MEDS: FAMOTIDINE 20MG/2ML VIAL IV SCH (20:14)
[2017-05-30] VITALS (98 sets, daily range): BP systolic 81–187; BP diastolic 40–131
[2017-05-30] MEDS: LORAZEPAM 2MG/ML CPJ IV PRN ×8 (00:24→21:36)
[2017-05-30] MEDS: DIPHENHYDRAMINE 50MG/ML VIAL IV PRN ×4 (00:24→21:36)
[2017-05-30] MEDS: IPRATROPIUM/ALBUTEROL 0.5-3(2.5)MG/3ML NEB INH SCH ×2 (01:42→07:55)
[2017-05-30] MEDS: HALOPERIDOL LACTATE 5MG/ML VIAL IM PRN ×4 (02:43→19:24)
[2017-05-30] MEDS: MORPHINE SULFATE 4 MG/ML CPJ (NOT FOR IM USE) IV PRN ×3 (03:39→15:46)
[2017-05-30] MEDS: SODIUM CHLORIDE 0.45% 1,000 ML IV SCH ×3 (04:12→18:43)
[2017-05-30] MEDS ORDERED: DILTIAZEM HCL 5MG/ML 5ML VIAL IV PRN (05:30)
[2017-05-30] MEDS: DILTIAZEM HCL 5MG/ML 5ML VIAL IV PRN ×3 (05:54→23:45)
[2017-05-30] MEDS: SODIUM CHLORIDE 0.9% INJ 3ML FLUSH IVF SCH ×3 (05:57→21:03)
[2017-05-30] MEDS: METOPROLOL TARTRATE 50MG TABLET PO SCH ×3 (06:37→21:03)
[2017-05-30] MEDS: ACETAMINOPHEN 650MG/20.3ML UDC GT PRN ×2 (07:44→15:17)
[2017-05-30] MEDS: CEFTRIAXONE 1 G PREMIX 50 ML IV SCH (08:30)
[2017-05-30] MEDS: FAMOTIDINE 20MG/2ML VIAL IV SCH ×2 (08:30→21:43)
[2017-05-30] MEDS: ENOXAPARIN 40MG/0.4ML SYR SUBCUT SCH (08:31)
[2017-05-30] MEDS: QUETIAPINE FUMARATE 100MG TABLET PO SCH ×2 (08:31→20:58)
[2017-05-30 08:52] LABS: HEMATOCRIT. 28.7 % (42.0-52.0); HEMOGLOBIN. 9.2 g/dL (14.0-18.0); MEAN CORPUSCULAR HEMOGLOBIN 26.7 pg (28.0-32.0); MEAN CORPUSCULAR VOLUME 83.5 fL (80.0-94.0); MEAN PLATELET VOLUME 7.7 fl (7.4-10.4); PLATELET 294 x1000/uL (130-400); RED BLOOD CELL COUNT 3.44 mill/uL (4.7-6.1); RED CELL DISTRIBUTION WIDTH 19.3 % (11.6-14.6)
[2017-05-30 08:55] LABS: CHLORIDE 104 mEq/L (98-107)
[2017-05-30 08:59] LABS: CARBON DIOXIDE 24 mEq/L (21-32)
[2017-05-30] MEDS ORDERED: LORAZEPAM 2MG/ML CPJ IM PRN (09:00)
[2017-05-30] MEDS ORDERED: LABETALOL 5MG/ML SYR 20 MG/4 ML SYRINGE IV PRN (09:00)
[2017-05-30] MEDS: AZITHROMYCIN 500 MG in DEXT 5% WATER 250 ML IV SCH (10:32)
[2017-05-30] MEDS: LEVETIRACETAM 500 MG in SODIUM CHLORIDE 0.9% 100 ML IV SCH ×2 (11:37→22:14)
[2017-05-30 11:50] LABS: PLATELET ESTIMATE NORMAL
[2017-05-30] MEDS: RISPERIDONE 1MG TABLET PO SCH (20:59)
[2017-05-30] MEDS: BENZTROPINE MESYLATE 1MG TABLET PO SCH (20:59)
[2017-05-31] VITALS (95 sets, daily range): BP systolic 93–162; BP diastolic 29–102
[2017-05-31] MEDS: LORAZEPAM 2MG/ML CPJ IV PRN ×4 (00:38→18:45)
[2017-05-31] MEDS: MORPHINE SULFATE 4 MG/ML CPJ (NOT FOR IM USE) IV PRN ×2 (01:59→14:17)
[2017-05-31] MEDS: METOPROLOL TARTRATE 50MG TABLET PO SCH ×3 (05:12→21:10)
[2017-05-31] MEDS: SODIUM CHLORIDE 0.9% INJ 3ML FLUSH IVF SCH ×3 (05:16→21:10)
[2017-05-31] MEDS: SODIUM CHLORIDE 0.45% 1,000 ML IV SCH (05:44)
[2017-05-31] MEDS: FAMOTIDINE 20MG/2ML VIAL IV SCH ×2 (08:08→20:34)
[2017-05-31] MEDS: QUETIAPINE FUMARATE 100MG TABLET PO SCH ×2 (08:08→20:34)
[2017-05-31] MEDS: RISPERIDONE 1MG TABLET PO SCH ×2 (08:09→20:35)
[2017-05-31] MEDS: CEFTRIAXONE 1 G PREMIX 50 ML IV SCH (08:09)
[2017-05-31] MEDS: ENOXAPARIN 40MG/0.4ML SYR SUBCUT SCH (08:09)
[2017-05-31] MEDS: HALOPERIDOL LACTATE 5MG/ML VIAL IM PRN ×3 (09:05→18:44)
[2017-05-31 09:19] LABS: HEMATOCRIT. 30.3 % (42.0-52.0); HEMOGLOBIN. 9.7 g/dL (14.0-18.0); MEAN CORPUSCULAR HEMOGLOBIN 26.8 pg (28.0-32.0); MEAN CORPUSCULAR VOLUME 83.8 fL (80.0-94.0); MEAN PLATELET VOLUME 8.4 fl (7.4-10.4); PLATELET 287 x1000/uL (130-400); RED BLOOD CELL COUNT 3.61 mill/uL (4.7-6.1)
[2017-05-31 09:31] LABS: AMMONIA 20 uMol/L (<32)
[2017-05-31 09:35] LABS: CARBON DIOXIDE 26 mEq/L (21-32); CHLORIDE 105 mEq/L (98-107)
[2017-05-31 09:42] LABS: PLATELET ESTIMATE NORMAL
[2017-05-31] MEDS: AZITHROMYCIN 500 MG in DEXT 5% WATER 250 ML IV SCH (10:36)
[2017-05-31] MEDS: PIPERACILLIN/TAZ 3.375G PREMIX 50 ML IV SCH ×2 (12:31→17:18)
[2017-05-31] MEDS: LEVETIRACETAM 750 MG in SODIUM CHLORIDE 0.9% 100 ML IV SCH ×2 (12:34→20:34)
[2017-05-31] MEDS ORDERED: VANCOMYCIN 1,750 MG in DEXT 5% WATER 500 ML IV NR (13:00)
[2017-05-31 14:44] LABS: CLARITY URINE CLEAR (CLEAR); COLOR URINE YELLOW (YELLOW); GLUCOSE URINE NEGATIVE (NEGATIVE); KETONES URINE 1+ (NEGATIVE); LEUKOCYTE ESTERASE URINE NEGATIVE (NEGATIVE); NITRITE URINE NEGATIVE (NEGATIVE); OCCULT BLOOD URINE NEGATIVE (NEGATIVE); PROTEIN URINE NEGATIVE (NEGATIVE); SPECIFIC GRAVITY URINE 1.022 (1.005-1.030); UROBILINOGEN URINE 0.2 E.U./dL (0.2-1.0)
[2017-05-31] MEDS: ACETAMINOPHEN 650MG/20.3ML UDC GT PRN (16:39)
[2017-05-31] MEDS: LACTULOSE 20G/30ML UDC PO PRN (18:46)
[2017-05-31] MEDS: BENZTROPINE MESYLATE 1MG TABLET PO SCH (20:34)
[2017-05-31] MEDS: VANCOMYCIN 1250MG in DEXTROSE 5% WATER 250ML IV SCH (22:06)
[2017-06-01] VITALS (95 sets, daily range): BP systolic 90–158; BP diastolic 43–109
[2017-06-01] MEDS: PIPERACILLIN/TAZ 3.375G PREMIX 50 ML IV SCH ×5 (00:19→23:32)
[2017-06-01] MEDS: SODIUM CHLORIDE 0.45% 1,000 ML IV SCH ×2 (01:10→17:20)
[2017-06-01] MEDS: SODIUM CHLORIDE 0.9% INJ 3ML FLUSH IVF SCH ×3 (05:07→21:28)
[2017-06-01] MEDS: METOPROLOL TARTRATE 50MG TABLET PO SCH ×3 (05:07→21:27)
[2017-06-01] MEDS: VANCOMYCIN 1250MG in DEXTROSE 5% WATER 250ML IV SCH ×3 (06:24→22:20)
[2017-06-01] MEDS: LORAZEPAM 2MG/ML CPJ IV PRN ×5 (07:49→23:32)
[2017-06-01] MEDS: FAMOTIDINE 20MG/2ML VIAL IV SCH ×2 (08:25→20:20)
[2017-06-01] MEDS: QUETIAPINE FUMARATE 100MG TABLET PO SCH ×2 (08:25→20:20)
[2017-06-01] MEDS: RISPERIDONE 1MG TABLET PO SCH ×2 (08:25→20:20)
[2017-06-01] MEDS: HALOPERIDOL LACTATE 5MG/ML VIAL IM PRN ×4 (08:43→23:32)
[2017-06-01] MEDS: LEVETIRACETAM 750 MG in SODIUM CHLORIDE 0.9% 100 ML IV SCH ×2 (09:25→20:21)
[2017-06-01] MEDS: DIPHENHYDRAMINE 50MG/ML VIAL IV PRN ×3 (10:04→23:32)
[2017-06-01] MEDS: DILTIAZEM HCL 5MG/ML 5ML VIAL IV PRN ×2 (11:21→18:00)
[2017-06-01] MEDS: MORPHINE SULFATE 4 MG/ML CPJ (NOT FOR IM USE) IV PRN ×2 (12:10→17:39)
[2017-06-01] MEDS: BENZTROPINE MESYLATE 1MG TABLET PO SCH (20:20)
[2017-06-01] MEDS: ACETAMINOPHEN 650MG/20.3ML UDC GT PRN (20:21)
[2017-06-02] VITALS (98 sets, daily range): BP systolic 90–202; BP diastolic 28–141
[2017-06-02] MEDS: MORPHINE SULFATE 4 MG/ML CPJ (NOT FOR IM USE) IV PRN (02:27)
[2017-06-02] MEDS: LORAZEPAM 2MG/ML CPJ IV PRN ×7 (03:32→22:24)
[2017-06-02] MEDS: HALOPERIDOL LACTATE 5MG/ML VIAL IM PRN ×5 (03:32→22:24)
[2017-06-02] MEDS: DIPHENHYDRAMINE 50MG/ML VIAL IV PRN ×5 (03:32→22:24)
[2017-06-02] MEDS: DILTIAZEM HCL 5MG/ML 5ML VIAL IV PRN ×2 (04:16→23:15)
[2017-06-02] MEDS: METOPROLOL TARTRATE 50MG TABLET PO SCH ×3 (05:00→22:31)
[2017-06-02] MEDS: PIPERACILLIN/TAZ 3.375G PREMIX 50 ML IV SCH ×3 (05:01→18:05)
[2017-06-02] MEDS: SODIUM CHLORIDE 0.9% INJ 3ML FLUSH IVF SCH ×3 (05:01→21:02)
[2017-06-02 05:44] LABS: HEMATOCRIT. 28.6 % (42.0-52.0); HEMOGLOBIN. 9.2 g/dL (14.0-18.0); MEAN CORPUSCULAR HEMOGLOBIN 26.8 pg (28.0-32.0); MEAN CORPUSCULAR VOLUME 83.4 fL (80.0-94.0); MEAN PLATELET VOLUME 8.8 fl (7.4-10.4); PLATELET 228 x1000/uL (130-400); RED BLOOD CELL COUNT 3.42 mill/uL (4.7-6.1); RED CELL DISTRIBUTION WIDTH 18.9 % (11.6-14.6)
[2017-06-02 06:20] LABS: CHLORIDE 101 mEq/L (98-107)
[2017-06-02 06:29] LABS: CARBON DIOXIDE 26 mEq/L (21-32)
[2017-06-02] MEDS: VANCOMYCIN 1250MG in DEXTROSE 5% WATER 250ML IV SCH ×3 (06:42→23:14)
[2017-06-02] MEDS: QUETIAPINE FUMARATE 100MG TABLET PO SCH ×2 (08:40→20:12)
[2017-06-02] MEDS: FAMOTIDINE 20MG/2ML VIAL IV SCH ×2 (08:40→20:12)
[2017-06-02] MEDS: RISPERIDONE 1MG TABLET PO SCH ×2 (08:40→20:12)
[2017-06-02] MEDS: LEVETIRACETAM 750 MG in SODIUM CHLORIDE 0.9% 100 ML IV SCH ×2 (08:41→20:22)
[2017-06-02 10:49] LABS: PLATELET ESTIMATE NORMAL
[2017-06-02] MEDS: ACETAMINOPHEN 650MG/20.3ML UDC GT PRN (11:53)
[2017-06-02] MEDS: SODIUM CHLORIDE 0.45% 1,000 ML IV SCH (14:09)
[2017-06-02] MEDS: BENZTROPINE MESYLATE 1MG TABLET PO SCH (20:12)
[2017-06-02] MEDS: MORPHINE SULFATE 2 MG/ML CPJ (NOT FOR IM USE) IV PRN (21:32)
[2017-06-02] MEDS: GUAIFENESIN 200MG/10ML SUGAR FREE UDC PO PRN (21:32)
[2017-06-03] VITALS (95 sets, daily range): BP systolic 96–166; BP diastolic 25–99
[2017-06-03] MEDS: PIPERACILLIN/TAZ 3.375G PREMIX 50 ML IV SCH ×5 (00:34→23:17)
[2017-06-03] MEDS: LORAZEPAM 2MG/ML CPJ IV PRN ×6 (01:34→21:41)
[2017-06-03] MEDS: MORPHINE SULFATE 2 MG/ML CPJ (NOT FOR IM USE) IV PRN ×2 (02:21→17:42)
[2017-06-03] MEDS: DIPHENHYDRAMINE 50MG/ML VIAL IV PRN ×2 (03:14→19:37)
[2017-06-03] MEDS: HALOPERIDOL LACTATE 5MG/ML VIAL IM PRN ×4 (03:14→18:43)
[2017-06-03] MEDS: VANCOMYCIN 1250MG in DEXTROSE 5% WATER 250ML IV SCH ×3 (06:29→23:14)
[2017-06-03] MEDS: METOPROLOL TARTRATE 50MG TABLET PO SCH ×3 (06:30→22:00)
[2017-06-03] MEDS: SODIUM CHLORIDE 0.45% 1,000 ML IV SCH (06:32)
[2017-06-03] MEDS: SODIUM CHLORIDE 0.9% INJ 3ML FLUSH IVF SCH ×3 (06:32→22:42)
[2017-06-03] MEDS: ACETAMINOPHEN 650MG/20.3ML UDC GT PRN (06:50)
[2017-06-03] MEDS: QUETIAPINE FUMARATE 100MG TABLET PO SCH ×2 (08:26→20:34)
[2017-06-03] MEDS: FAMOTIDINE 20MG/2ML VIAL IV SCH ×2 (08:26→20:34)
[2017-06-03] MEDS: RISPERIDONE 1MG TABLET PO SCH ×2 (08:26→20:34)
[2017-06-03] MEDS: LEVETIRACETAM 750 MG in SODIUM CHLORIDE 0.9% 100 ML IV SCH ×2 (09:25→20:34)
[2017-06-03] MEDS: GUAIFENESIN 200MG/10ML SUGAR FREE UDC PO PRN (11:41)
[2017-06-03 14:10] LABS: HEMATOCRIT 28.2 % (42.0-52.0); HEMOGLOBIN 8.9 g/dL (14.0-18.0); MEAN CORPUSCULAR HEMOGLOBIN 26.4 pg (28.0-32.0); MEAN CORPUSCULAR VOLUME 83.6 fL (80.0-94.0); PLATELET 247 x1000/uL (130-400); RED BLOOD CELL COUNT 3.37 mill/uL (4.7-6.1); RED CELL DISTRIBUTION WIDTH 18.8 % (11.6-14.6)
[2017-06-03 14:18] LABS: CARBON DIOXIDE 31 mEq/L (21-32); CHLORIDE 104 mEq/L (98-107)
[2017-06-03] MEDS: DILTIAZEM HCL 5MG/ML 5ML VIAL IV PRN (17:02)
[2017-06-03] MEDS: BENZTROPINE MESYLATE 1MG TABLET PO SCH (20:34)
[2017-06-04] VITALS (51 sets, daily range): BP systolic 90–152; BP diastolic 27–83
[2017-06-04] MEDS: DIPHENHYDRAMINE 50MG/ML VIAL IV PRN (00:05)
[2017-06-04] MEDS: LORAZEPAM 2MG/ML CPJ IV PRN ×3 (00:05→06:42)
[2017-06-04] MEDS: HALOPERIDOL LACTATE 5MG/ML VIAL IM PRN ×3 (00:23→21:32)
[2017-06-04] MEDS: MORPHINE SULFATE 2 MG/ML CPJ (NOT FOR IM USE) IV PRN (02:15)
[2017-06-04] MEDS: SODIUM CHLORIDE 0.45% 1,000 ML IV SCH ×3 (03:15→15:45)
[2017-06-04] MEDS: DILTIAZEM HCL 5MG/ML 5ML VIAL IV PRN (05:09)
[2017-06-04] MEDS: GUAIFENESIN 200MG/10ML SUGAR FREE UDC PO PRN (05:14)
[2017-06-04] MEDS: SODIUM CHLORIDE 0.9% INJ 3ML FLUSH IVF SCH ×3 (06:39→21:14)
[2017-06-04] MEDS: VANCOMYCIN 1250MG in DEXTROSE 5% WATER 250ML IV SCH ×2 (06:42→21:13)
[2017-06-04] MEDS: PIPERACILLIN/TAZ 3.375G PREMIX 50 ML IV SCH ×3 (06:43→18:04)
[2017-06-04] MEDS: METOPROLOL TARTRATE 50MG TABLET PO SCH ×3 (06:43→21:15)
[2017-06-04] MEDS: QUETIAPINE FUMARATE 100MG TABLET PO SCH ×2 (09:00→21:13)
[2017-06-04] MEDS: FAMOTIDINE 20MG/2ML VIAL IV SCH ×2 (09:18→21:13)
[2017-06-04] MEDS: LEVETIRACETAM 750 MG in SODIUM CHLORIDE 0.9% 100 ML IV SCH ×3 (09:18→22:00)
[2017-06-04 10:28] LABS: HEMATOCRIT 26.9 % (42.0-52.0); HEMOGLOBIN 8.5 g/dL (14.0-18.0); MEAN CORPUSCULAR HEMOGLOBIN 26.3 pg (28.0-32.0); MEAN CORPUSCULAR VOLUME 83.7 fL (80.0-94.0); PLATELET 250 x1000/uL (130-400); RED BLOOD CELL COUNT 3.21 mill/uL (4.7-6.1); RED CELL DISTRIBUTION WIDTH 18.9 % (11.6-14.6)
[2017-06-04 10:52] LABS: CARBON DIOXIDE 28 mEq/L (21-32); CHLORIDE 101 mEq/L (98-107)
[2017-06-04] MEDS: BENZTROPINE MESYLATE 1MG TABLET PO SCH (21:14)
[2017-06-04] MEDS: CALAMINE LOTION 120ML TOP SCH (21:16)
[2017-06-05] VITALS (92 sets, daily range): BP systolic 100–176; BP diastolic 28–138
[2017-06-05] MEDS: MORPHINE SULFATE 2 MG/ML CPJ (NOT FOR IM USE) IV PRN (01:53)
[2017-06-05] MEDS: SODIUM CHLORIDE 0.45% 1,000 ML IV SCH ×2 (02:03→16:53)
[2017-06-05] MEDS: DIPHENHYDRAMINE 50MG/ML VIAL IV PRN ×4 (03:52→21:02)
[2017-06-05] MEDS: PIPERACILLIN/TAZ 3.375G PREMIX 50 ML IV SCH ×4 (06:18→17:18)
[2017-06-05] MEDS: CALAMINE LOTION 120ML TOP SCH ×3 (06:18→21:02)
[2017-06-05] MEDS: METOPROLOL TARTRATE 50MG TABLET PO SCH ×3 (06:21→21:01)
[2017-06-05] MEDS: SODIUM CHLORIDE 0.9% INJ 3ML FLUSH IVF SCH ×3 (06:22→21:01)
[2017-06-05] MEDS: FAMOTIDINE 20MG/2ML VIAL IV SCH ×2 (08:04→20:12)
[2017-06-05] MEDS: VANCOMYCIN 1250MG in DEXTROSE 5% WATER 250ML IV SCH ×2 (08:05→20:12)
[2017-06-05] MEDS: LEVETIRACETAM 750 MG in SODIUM CHLORIDE 0.9% 100 ML IV SCH ×2 (08:05→21:30)
[2017-06-05] MEDS: QUETIAPINE FUMARATE 100MG TABLET PO SCH ×2 (08:05→20:12)
[2017-06-05] MEDS ORDERED: RISPERIDONE 1MG TABLET PO SCH (09:00)
[2017-06-05] MEDS: LORAZEPAM 2MG/ML CPJ IV PRN ×4 (09:01→21:37)
[2017-06-05] MEDS: HALOPERIDOL LACTATE 5MG/ML VIAL IM PRN ×3 (09:27→21:02)
[2017-06-05] MEDS ORDERED: LORAZEPAM 2MG/ML CPJ IV NR (10:30)
[2017-06-05] MEDS ORDERED: QUETIAPINE FUMARATE 100MG TABLET PO NR (11:00)
[2017-06-05] MEDS: BENZTROPINE MESYLATE 1MG TABLET PO SCH (20:13)
[2017-06-06] VITALS (97 sets, daily range): BP systolic 91–179; BP diastolic 34–99
[2017-06-06] MEDS: PIPERACILLIN/TAZ 3.375G PREMIX 50 ML IV SCH ×5 (00:22→23:01)
[2017-06-06] MEDS: HALOPERIDOL LACTATE 5MG/ML VIAL IM PRN ×4 (01:07→17:37)
[2017-06-06] MEDS: LORAZEPAM 2MG/ML CPJ IV PRN ×6 (01:07→22:01)
[2017-06-06] MEDS: DIPHENHYDRAMINE 50MG/ML VIAL IV PRN ×5 (01:07→22:28)
[2017-06-06] MEDS: GUAIFENESIN 200MG/10ML SUGAR FREE UDC PO PRN ×2 (01:59→09:25)
[2017-06-06] MEDS: MORPHINE SULFATE 2 MG/ML CPJ (NOT FOR IM USE) IV PRN (03:51)
[2017-06-06] MEDS: ACETAMINOPHEN 650MG/20.3ML UDC GT PRN ×2 (03:58→16:51)
[2017-06-06] MEDS: SODIUM CHLORIDE 0.45% 1,000 ML IV SCH ×2 (05:02→17:36)
[2017-06-06] MEDS: CALAMINE LOTION 120ML TOP SCH ×3 (05:02→21:20)
[2017-06-06] MEDS: SODIUM CHLORIDE 0.9% INJ 3ML FLUSH IVF SCH ×3 (05:02→20:22)
[2017-06-06] MEDS: METOPROLOL TARTRATE 50MG TABLET PO SCH ×3 (05:03→21:19)
[2017-06-06 05:52] LABS: HEMATOCRIT. 27.5 % (42.0-52.0); HEMOGLOBIN. 8.8 g/dL (14.0-18.0); MEAN CORPUSCULAR HEMOGLOBIN 26.5 pg (28.0-32.0); MEAN CORPUSCULAR VOLUME 83.3 fL (80.0-94.0); MEAN PLATELET VOLUME 8.9 fl (7.4-10.4); PLATELET 243 x1000/uL (130-400); RED BLOOD CELL COUNT 3.31 mill/uL (4.7-6.1); RED CELL DISTRIBUTION WIDTH 18.7 % (11.6-14.6)
[2017-06-06 06:22] LABS: CARBON DIOXIDE 26 mEq/L (21-32); CHLORIDE 104 mEq/L (98-107)
[2017-06-06 07:19] LABS: PLATELET ESTIMATE NORMAL
[2017-06-06] MEDS ORDERED: PHENYTOIN SODIUM 1,000 MG in SODIUM CHLORIDE 0.9% 100 ML IV NR (09:00)
[2017-06-06] MEDS: QUETIAPINE FUMARATE 100MG TABLET PO SCH ×2 (09:26→19:56)
[2017-06-06] MEDS: VANCOMYCIN 1250MG in DEXTROSE 5% WATER 250ML IV SCH ×2 (09:26→20:22)
[2017-06-06] MEDS: FAMOTIDINE 20MG/2ML VIAL IV SCH ×2 (09:26→20:22)
[2017-06-06] MEDS: OLANZAPINE 10MG TABLET PO SCH (09:31)
[2017-06-06] MEDS: DIVALPROEX SODIUM 500MG DR TABLET PO SCH (19:56)
[2017-06-06] MEDS: BENZTROPINE MESYLATE 1MG TABLET PO SCH (19:56)
[2017-06-07] VITALS (99 sets, daily range): BP systolic 93–199; BP diastolic 37–140
[2017-06-07] MEDS: LORAZEPAM 2MG/ML CPJ IV PRN ×4 (00:49→21:58)
[2017-06-07] MEDS: DIPHENHYDRAMINE 50MG/ML VIAL IV PRN ×3 (04:03→21:58)
[2017-06-07] MEDS: METOPROLOL TARTRATE 50MG TABLET PO SCH ×3 (05:03→21:02)
[2017-06-07] MEDS: PIPERACILLIN/TAZ 3.375G PREMIX 50 ML IV SCH ×2 (05:03→14:16)
[2017-06-07] MEDS: SODIUM CHLORIDE 0.9% INJ 3ML FLUSH IVF SCH ×2 (05:03→23:30)
[2017-06-07] MEDS: CALAMINE LOTION 120ML TOP SCH ×3 (05:03→21:08)
[2017-06-07] MEDS: SODIUM CHLORIDE 0.45% 1,000 ML IV SCH ×2 (05:05→19:37)
[2017-06-07 05:49] LABS: HEMATOCRIT. 28.4 % (42.0-52.0); HEMOGLOBIN. 9.1 g/dL (14.0-18.0); MEAN CORPUSCULAR HEMOGLOBIN 26.5 pg (28.0-32.0); MEAN CORPUSCULAR VOLUME 82.9 fL (80.0-94.0); MEAN PLATELET VOLUME 8.8 fl (7.4-10.4); PLATELET 322 x1000/uL (130-400); RED BLOOD CELL COUNT 3.43 mill/uL (4.7-6.1); RED CELL DISTRIBUTION WIDTH 18.5 % (11.6-14.6)
[2017-06-07 06:41] LABS: CARBON DIOXIDE 28 mEq/L (21-32); CHLORIDE 104 mEq/L (98-107)
[2017-06-07] MEDS: DIVALPROEX SODIUM 500MG DR TABLET PO SCH ×2 (08:12→21:07)
[2017-06-07] MEDS: OLANZAPINE 10MG TABLET PO SCH (08:12)
[2017-06-07] MEDS: FAMOTIDINE 20MG/2ML VIAL IV SCH ×2 (08:12→21:02)
[2017-06-07] MEDS: QUETIAPINE FUMARATE 100MG TABLET PO SCH ×2 (08:12→21:07)
[2017-06-07] MEDS: VANCOMYCIN 1250MG in DEXTROSE 5% WATER 250ML IV SCH (08:13)
[2017-06-07 10:53] LABS: PLATELET ESTIMATE NORMAL
[2017-06-07] MEDS: IPRATROPIUM/ALBUTEROL 0.5-3(2.5)MG/3ML NEB HHN SCH ×3 (15:01→20:50)
[2017-06-07] MEDS: ACETYLCYSTEINE 100MG/ML 10% VIAL 4ML INH SCH ×3 (15:02→20:50)
[2017-06-07] MEDS ORDERED: PHENYTOIN SODIUM 100MG/2ML VIAL IV SCH (21:00)
[2017-06-07] MEDS: BENZTROPINE MESYLATE 1MG TABLET PO SCH (21:07)
[2017-06-07] MEDS: PHENYTOIN SODIUM 300MG in SODIUM CHLORIDE 0.9% 50ML IV SCH (21:08)
[2017-06-07] MEDS: DILTIAZEM HCL 5MG/ML 5ML VIAL IV PRN (21:57)
[2017-06-08] VITALS (96 sets, daily range): BP systolic 74–166; BP diastolic 30–110
[2017-06-08] MEDS: IPRATROPIUM/ALBUTEROL 0.5-3(2.5)MG/3ML NEB HHN SCH ×7 (00:23→23:37)
[2017-06-08] MEDS: ACETYLCYSTEINE 100MG/ML 10% VIAL 4ML INH SCH ×7 (00:23→23:37)
[2017-06-08] MEDS: LORAZEPAM 2MG/ML CPJ IV PRN ×4 (02:30→22:12)
[2017-06-08] MEDS: DIPHENHYDRAMINE 50MG/ML VIAL IV PRN ×2 (03:13→18:08)
[2017-06-08] MEDS: DILTIAZEM HCL 5MG/ML 5ML VIAL IV PRN ×3 (03:51→23:01)
[2017-06-08] MEDS: SODIUM CHLORIDE 0.9% INJ 3ML FLUSH IVF SCH ×3 (05:12→22:12)
[2017-06-08] MEDS: METOPROLOL TARTRATE 50MG TABLET PO SCH ×3 (05:12→23:00)
[2017-06-08] MEDS: CALAMINE LOTION 120ML TOP SCH ×3 (05:13→23:01)
[2017-06-08 06:10] LABS: CARBON DIOXIDE 27 mEq/L (21-32); CHLORIDE 106 mEq/L (98-107)
[2017-06-08] MEDS: SODIUM CHLORIDE 0.45% 1,000 ML IV SCH ×2 (06:30→20:44)
[2017-06-08] MEDS: QUETIAPINE FUMARATE 100MG TABLET PO SCH ×2 (08:18→20:44)
[2017-06-08] MEDS: FAMOTIDINE 20MG/2ML VIAL IV SCH ×2 (08:18→20:44)
[2017-06-08] MEDS: DIVALPROEX SODIUM 500MG DR TABLET PO SCH ×2 (08:19→20:44)
[2017-06-08] MEDS: OLANZAPINE 10MG TABLET PO SCH (08:19)
[2017-06-08] MEDS: PHENYTOIN SODIUM 300MG in SODIUM CHLORIDE 0.9% 50ML IV SCH (20:44)
[2017-06-08] MEDS: BENZTROPINE MESYLATE 1MG TABLET PO SCH (20:44)
[2017-06-09] VITALS (81 sets, daily range): BP systolic 82–176; BP diastolic 44–131
[2017-06-09] MEDS: LORAZEPAM 2MG/ML CPJ IV PRN ×4 (00:27→18:31)
[2017-06-09] MEDS: DIPHENHYDRAMINE 50MG/ML VIAL IV PRN ×3 (00:27→12:36)
[2017-06-09] MEDS: IPRATROPIUM/ALBUTEROL 0.5-3(2.5)MG/3ML NEB HHN SCH ×5 (03:00→20:02)
[2017-06-09] MEDS: ACETYLCYSTEINE 100MG/ML 10% VIAL 4ML INH SCH ×5 (03:00→20:02)
[2017-06-09] MEDS: HALOPERIDOL LACTATE 5MG/ML VIAL IM PRN (04:12)
[2017-06-09] MEDS: SODIUM CHLORIDE 0.9% INJ 3ML FLUSH IVF SCH ×3 (06:05→21:18)
[2017-06-09] MEDS: DILTIAZEM HCL 5MG/ML 5ML VIAL IV PRN ×2 (06:12→17:22)
[2017-06-09] MEDS: CALAMINE LOTION 120ML TOP SCH ×3 (06:13→21:14)
[2017-06-09] MEDS: METOPROLOL TARTRATE 50MG TABLET PO SCH ×3 (06:13→21:04)
[2017-06-09] MEDS: ACETAMINOPHEN 650MG/20.3ML UDC GT PRN (06:17)
[2017-06-09] MEDS: OLANZAPINE 10MG TABLET PO SCH (08:36)
[2017-06-09] MEDS: DIVALPROEX SODIUM 500MG DR TABLET PO SCH ×2 (08:36→21:04)
[2017-06-09] MEDS: FAMOTIDINE 20MG/2ML VIAL IV SCH ×2 (08:36→21:04)
[2017-06-09] MEDS: QUETIAPINE FUMARATE 100MG TABLET PO SCH ×2 (08:37→21:04)
[2017-06-09] MEDS: SODIUM CHLORIDE 0.45% 1,000 ML IV SCH ×2 (08:38→21:07)
[2017-06-09] MEDS ORDERED: MORPHINE SULFATE 2 MG/ML CPJ (NOT FOR IM USE) IV PRN (10:45)
[2017-06-09] MEDS: GUAIFENESIN 200MG/10ML SUGAR FREE UDC PO PRN (15:10)
[2017-06-09] MEDS: PHENYTOIN SODIUM 300MG in SODIUM CHLORIDE 0.9% 50ML IV SCH (21:05)
[2017-06-09] MEDS: BENZTROPINE MESYLATE 1MG TABLET PO SCH (21:05)
[2017-06-10] VITALS (24 sets, daily range): BP systolic 92–160; BP diastolic 45–105
[2017-06-10] MEDS: DILTIAZEM HCL 5MG/ML 5ML VIAL IV PRN ×2 (00:01→06:45)
[2017-06-10] MEDS: IPRATROPIUM/ALBUTEROL 0.5-3(2.5)MG/3ML NEB HHN SCH ×7 (00:24→22:10)
[2017-06-10] MEDS: ACETYLCYSTEINE 100MG/ML 10% VIAL 4ML INH SCH ×7 (00:24→22:10)
[2017-06-10] MEDS: ACETAMINOPHEN 650MG/20.3ML UDC GT PRN (00:41)
[2017-06-10] MEDS: GUAIFENESIN 200MG/10ML SUGAR FREE UDC PO PRN (01:26)
[2017-06-10] MEDS: CALAMINE LOTION 120ML TOP SCH ×3 (05:13→21:01)
[2017-06-10] MEDS: METOPROLOL TARTRATE 50MG TABLET PO SCH ×3 (05:13→21:00)
[2017-06-10] MEDS: SODIUM CHLORIDE 0.9% INJ 3ML FLUSH IVF SCH ×3 (05:13→21:00)
[2017-06-10 05:39] LABS: HEMOGLOBIN. 9.2 g/dL (14.0-18.0); MEAN CORPUSCULAR HEMOGLOBIN 26.3 pg (28.0-32.0); MEAN CORPUSCULAR VOLUME 83.1 fL (80.0-94.0); PLATELET 317 x1000/uL (130-400); RED BLOOD CELL COUNT 3.48 mill/uL (4.7-6.1); RED CELL DISTRIBUTION WIDTH 18.4 % (11.6-14.6)
[2017-06-10 06:07] LABS: CARBON DIOXIDE 28 mEq/L (21-32); CHLORIDE 106 mEq/L (98-107)
[2017-06-10] MEDS: DIPHENHYDRAMINE 50MG/ML VIAL IV PRN ×2 (08:23→16:32)
[2017-06-10] MEDS: OLANZAPINE 10MG TABLET PO SCH (08:36)
[2017-06-10] MEDS: DIVALPROEX SODIUM 500MG DR TABLET PO SCH ×2 (08:36→20:59)
[2017-06-10] MEDS: LORAZEPAM 2MG/ML CPJ IV PRN ×4 (08:36→20:46)
[2017-06-10] MEDS: QUETIAPINE FUMARATE 100MG TABLET PO SCH ×2 (08:36→20:59)
[2017-06-10] MEDS: FAMOTIDINE 20MG/2ML VIAL IV SCH ×2 (08:36→21:00)
[2017-06-10] MEDS: SODIUM CHLORIDE 0.45% 1,000 ML IV SCH ×2 (08:43→21:00)
[2017-06-10] MEDS: HALOPERIDOL LACTATE 5MG/ML VIAL IM PRN ×2 (08:47→16:34)
[2017-06-10 10:51] LABS: PLATELET ESTIMATE NORMAL
[2017-06-10 16:48] LABS: CHLORIDE 104 mEq/L (98-107)
[2017-06-10 16:49] LABS: HEMATOCRIT. 27.8 % (42.0-52.0); HEMOGLOBIN. 8.7 g/dL (14.0-18.0); MEAN CORPUSCULAR HEMOGLOBIN 26.2 pg (28.0-32.0); MEAN CORPUSCULAR VOLUME 83.7 fL (80.0-94.0); MEAN PLATELET VOLUME 8.8 fl (7.4-10.4); PLATELET 336 x1000/uL (130-400); RED BLOOD CELL COUNT 3.33 mill/uL (4.7-6.1); RED CELL DISTRIBUTION WIDTH 18.9 % (11.6-14.6)
[2017-06-10 16:56] LABS: CARBON DIOXIDE 29 mEq/L (21-32)
[2017-06-10] MEDS: MORPHINE SULFATE 2 MG/ML CPJ (NOT FOR IM USE) IV PRN (18:15)
[2017-06-10 18:16] LABS: PLATELET ESTIMATE NORMAL
[2017-06-10] MEDS: BENZTROPINE MESYLATE 1MG TABLET PO SCH (20:59)
[2017-06-10] MEDS: PHENYTOIN SODIUM 300MG in SODIUM CHLORIDE 0.9% 50ML IV SCH (21:00)
[2017-06-11] VITALS (55 sets, daily range): BP systolic 91–157; BP diastolic 48–138
[2017-06-11] MEDS: LORAZEPAM 2MG/ML CPJ IV PRN ×7 (01:52→21:30)
[2017-06-11] MEDS: IPRATROPIUM/ALBUTEROL 0.5-3(2.5)MG/3ML NEB HHN SCH ×5 (02:38→19:46)
[2017-06-11] MEDS: ACETYLCYSTEINE 100MG/ML 10% VIAL 4ML INH SCH ×5 (02:39→19:46)
[2017-06-11] MEDS: DILTIAZEM HCL 5MG/ML 5ML VIAL IV PRN (04:24)
[2017-06-11] MEDS: HALOPERIDOL LACTATE 5MG/ML VIAL IM PRN ×5 (04:32→23:34)
[2017-06-11] MEDS: SODIUM CHLORIDE 0.9% INJ 3ML FLUSH IVF SCH ×3 (05:16→21:09)
[2017-06-11] MEDS: METOPROLOL TARTRATE 50MG TABLET PO SCH ×3 (05:16→21:09)
[2017-06-11] MEDS: CALAMINE LOTION 120ML TOP SCH ×3 (05:17→21:10)
[2017-06-11 06:49] LABS: HEMATOCRIT. 28.4 % (42.0-52.0); HEMOGLOBIN. 8.8 g/dL (14.0-18.0); MEAN CORPUSCULAR HEMOGLOBIN 26.2 pg (28.0-32.0); MEAN CORPUSCULAR VOLUME 84.2 fL (80.0-94.0); PLATELET 312 x1000/uL (130-400); RED BLOOD CELL COUNT 3.37 mill/uL (4.7-6.1); RED CELL DISTRIBUTION WIDTH 18.9 % (11.6-14.6)
[2017-06-11 06:58] LABS: CARBON DIOXIDE 31 mEq/L (21-32); CHLORIDE 107 mEq/L (98-107); PHOSPHORUS 3.5 mg/dL (2.5-4.9)
[2017-06-11] MEDS: FAMOTIDINE 20MG/2ML VIAL IV SCH ×2 (07:55→20:25)
[2017-06-11] MEDS: QUETIAPINE FUMARATE 100MG TABLET PO SCH (07:55)
[2017-06-11] MEDS: OLANZAPINE 10MG TABLET PO SCH ×2 (07:56→16:38)
[2017-06-11] MEDS: DIVALPROEX SODIUM 500MG DR TABLET PO SCH ×2 (07:56→20:24)
[2017-06-11] MEDS: SODIUM CHLORIDE 0.45% 1,000 ML IV SCH ×2 (10:17→23:30)
[2017-06-11 11:05] LABS: PLATELET ESTIMATE NORMAL
[2017-06-11] MEDS: MORPHINE SULFATE 2 MG/ML CPJ (NOT FOR IM USE) IV PRN (13:05)
[2017-06-11] MEDS ORDERED: QUETIAPINE FUMARATE 100MG TABLET PO SCH (14:00)
[2017-06-11] MEDS: DIPHENHYDRAMINE 50MG/ML VIAL IV PRN ×3 (15:27→23:34)
[2017-06-11 16:50] LABS: AMMONIA 31 uMol/L (<32)
[2017-06-11] MEDS: RISPERIDONE 1MG TABLET PO SCH (20:24)
[2017-06-11] MEDS: GUAIFENESIN 200MG/10ML SUGAR FREE UDC PO PRN (20:24)
[2017-06-11] MEDS: BENZTROPINE MESYLATE 1MG TABLET PO SCH (20:24)
[2017-06-11] MEDS: PHENYTOIN SODIUM 300MG in SODIUM CHLORIDE 0.9% 50ML IV SCH (21:09)
[2017-06-12] VITALS (94 sets, daily range): BP systolic 90–191; BP diastolic 53–118
[2017-06-12] MEDS: IPRATROPIUM/ALBUTEROL 0.5-3(2.5)MG/3ML NEB HHN SCH ×6 (00:19→20:46)
[2017-06-12] MEDS: ACETYLCYSTEINE 100MG/ML 10% VIAL 4ML INH SCH ×4 (00:19→11:54)
[2017-06-12] MEDS: LORAZEPAM 2MG/ML CPJ IV PRN ×3 (03:32→10:12)
[2017-06-12] MEDS: HALOPERIDOL LACTATE 5MG/ML VIAL IM PRN (03:40)
[2017-06-12] MEDS: DIPHENHYDRAMINE 50MG/ML VIAL IV PRN (03:40)
[2017-06-12] MEDS: ACETAMINOPHEN 650MG/20.3ML UDC GT PRN (04:40)
[2017-06-12] MEDS: METOPROLOL TARTRATE 50MG TABLET PO SCH ×3 (05:25→21:10)
[2017-06-12] MEDS: SODIUM CHLORIDE 0.9% INJ 3ML FLUSH IVF SCH ×3 (05:25→21:11)
[2017-06-12] MEDS: CALAMINE LOTION 120ML TOP SCH ×3 (05:25→21:11)
[2017-06-12 05:50] LABS: BG BASE EXCESS 7.3 mmol/L (-2.0-2.0); BG DEOXYHEMOGLOBIN 15.9 % (0.0-5.0); BG FRACTION INSPIRED OXYGEN 36; BG HCO3 ACT 31.6 mmol/L (22.0-26.0); BG METHEMOGLOBIN 0.5 % (0.0-1.5); BG OXYHEMOGLOBIN 83.6 % (94.0-97.0); BG PCO2 43.8 mmHg (35.0-45.0); BG PH 7.476 (7.350-7.450); BG PO2 49.6 mmHg (75.0-100.0); BG SAMPLE SITE RIGHT BRACHIAL; BG TOTAL HEMOGLOBIN 9.9 g/dL (12.0-18.0); BG VENT MODE NASAL CANNULA
[2017-06-12] MEDS ORDERED: RACEPINEPHRINE 2.25% 0.5ML NEB VIAL HHN NR (06:00)
[2017-06-12] MEDS ORDERED: DIPHENHYDRAMINE 50MG/ML VIAL IV NR (06:00)
[2017-06-12] MEDS: DILTIAZEM HCL 5MG/ML 5ML VIAL IV PRN (06:08)
[2017-06-12] MEDS ORDERED: SODIUM CHLORIDE 0.9% 1,000 ML IV ONE (06:16)
[2017-06-12] MEDS ORDERED: METHYLPREDNISOLONE SOD SUCC 125 MG/2 ML VIAL IV NR (06:18)
[2017-06-12] MEDS ORDERED: EPINEPHRINE 1:1000 1 MG/ML AMP IM NR (06:19)
[2017-06-12] MEDS ORDERED: NA PHOS,M-B/NA PHOS,DI-BA ENEMA 118ML PR PRN (07:45)
[2017-06-12] MEDS: DIVALPROEX SODIUM 500MG DR TABLET PO SCH ×2 (08:14→21:11)
[2017-06-12] MEDS: FAMOTIDINE 20MG/2ML VIAL IV SCH ×2 (08:14→21:10)
[2017-06-12] MEDS: OLANZAPINE 10MG TABLET PO SCH ×2 (08:14→17:56)
[2017-06-12] MEDS: RISPERIDONE 1MG TABLET PO SCH ×2 (08:15→21:11)
[2017-06-12] MEDS ORDERED: SUCCINYLCHOLINE CHLORIDE 200MG/10ML VIAL IV ONE (09:25)
[2017-06-12] MEDS ORDERED: ETOMIDATE 2MG/ML 10ML VIAL IV ONE (09:25)
[2017-06-12] MEDS ORDERED: MIDAZOLAM HCL 50 MG in DEXTROSE 5% WATER 40 ML IV PRN (09:30)
[2017-06-12 10:03] LABS: BG CARBOXYHEMOGLOBIN 0.1 % (0.5-1.5); BG DEOXYHEMOGLOBIN 5.3 % (0.0-5.0); BG HCO3 ACT 33.1 mmol/L (22.0-26.0); BG METHEMOGLOBIN 0.3 % (0.0-1.5); BG OXYGEN SATURATION 94.7 % (92.0-98.5); BG OXYHEMOGLOBIN 94.3 % (94.0-97.0); BG PCO2 77.3 mmHg (35.0-45.0); BG PH 7.249 (7.350-7.450); BG PO2 92.9 mmHg (75.0-100.0); BG SAMPLE SITE RIGHT BRACHIAL; BG TIDAL VOLUME(mL) 500 mL; BG VENT MODE VENT - A/C; BG VENT RATE 12 set
[2017-06-12] MEDS: PROPOFOL 10MG/ML 100ML 100 ML IV PRN ×5 (10:15→22:47)
[2017-06-12 10:36] LABS: HEMATOCRIT. 30.2 % (42.0-52.0); HEMOGLOBIN. 9.4 g/dL (14.0-18.0); MEAN PLATELET VOLUME 8.9 fl (7.4-10.4); PLATELET 408 x1000/uL (130-400); RED BLOOD CELL COUNT 3.59 mill/uL (4.7-6.1); RED CELL DISTRIBUTION WIDTH 18.9 % (11.6-14.6)
[2017-06-12 10:48] LABS: CHLORIDE 104 mEq/L (98-107)
[2017-06-12 10:55] LABS: CARBON DIOXIDE 30 mEq/L (21-32)
[2017-06-12] MEDS ORDERED: FENTANYL CITRATE/PF 500 MCG in SODIUM CHLORIDE 0.9% 40 ML IV PRN (11:00)
[2017-06-12 11:17] LABS: PLATELET ESTIMATE NORMAL
[2017-06-12] MEDS: SODIUM CHLORIDE 0.45% 1,000 ML IV SCH (11:40)
[2017-06-12 12:13] LABS: BG BASE EXCESS 5.3 mmol/L (-2.0-2.0); BG CARBOXYHEMOGLOBIN 0.3 % (0.5-1.5); BG DEOXYHEMOGLOBIN 0.9 % (0.0-5.0); BG HCO3 ACT 31.1 mmol/L (22.0-26.0); BG METHEMOGLOBIN 0.7 % (0.0-1.5); BG OXYGEN SATURATION 99.1 % (92.0-98.5); BG OXYHEMOGLOBIN 98.1 % (94.0-97.0); BG PH 7.394 (7.350-7.450); BG PO2 226.7 mmHg (75.0-100.0); BG SAMPLE SITE RIGHT BRACHIAL; BG TIDAL VOLUME(mL) 550 mL; BG TOTAL HEMOGLOBIN 9.5 g/dL (12.0-18.0); BG VENT MODE VENT - A/C; BG VENT RATE 16 set
[2017-06-12] MEDS: METHYLPREDNISOLONE SOD SUCC 125 MG/2 ML VIAL IV SCH ×2 (12:42→17:56)
[2017-06-12] MEDS: MIDAZOLAM HCL 100 MG in DEXT 5% WATER 80 ML IV PRN (14:24)
[2017-06-12] MEDS: BENZTROPINE MESYLATE 1MG TABLET PO SCH (21:10)
[2017-06-12] MEDS: PHENYTOIN SODIUM 300MG in SODIUM CHLORIDE 0.9% 50ML IV SCH (22:13)
[2017-06-13] VITALS (73 sets, daily range): BP systolic 99–151; BP diastolic 57–107
[2017-06-13] MEDS: METHYLPREDNISOLONE SOD SUCC 125 MG/2 ML VIAL IV SCH ×4 (00:24→17:22)
[2017-06-13] MEDS: SODIUM CHLORIDE 0.45% 1,000 ML IV SCH ×2 (00:24→13:36)
[2017-06-13] MEDS: IPRATROPIUM/ALBUTEROL 0.5-3(2.5)MG/3ML NEB HHN SCH ×6 (00:35→20:17)
[2017-06-13] MEDS: GUAIFENESIN 200MG/10ML SUGAR FREE UDC PO PRN (01:27)
[2017-06-13] MEDS: PROPOFOL 10MG/ML 100ML 100 ML IV PRN ×6 (02:50→22:48)
[2017-06-13] MEDS: METOPROLOL TARTRATE 50MG TABLET PO SCH ×3 (06:00→21:36)
[2017-06-13] MEDS: SODIUM CHLORIDE 0.9% INJ 3ML FLUSH IVF SCH ×3 (06:09→21:36)
[2017-06-13] MEDS: CALAMINE LOTION 120ML TOP SCH ×3 (06:10→21:37)
[2017-06-13] MEDS ORDERED: DEXTROSE 50% WATER 50ML SYRINGE IV PRN (07:45)
[2017-06-13] MEDS ORDERED: BLOOD SUGAR DIAGNOSTIC STRIP TEST SCH (07:50)
[2017-06-13 07:56] LABS: BG BASE EXCESS 2.1 mmol/L (-2.0-2.0); BG CARBOXYHEMOGLOBIN 0.3 % (0.5-1.5); BG DEOXYHEMOGLOBIN 1.1 % (0.0-5.0); BG FRACTION INSPIRED OXYGEN 70; BG HCO3 ACT 28.7 mmol/L (22.0-26.0); BG METHEMOGLOBIN 0.3 % (0.0-1.5); BG OXYGEN SATURATION 98.9 % (92.0-98.5); BG OXYHEMOGLOBIN 98.3 % (94.0-97.0); BG PCO2 56.1 mmHg (35.0-45.0); BG PH 7.327 (7.350-7.450); BG SAMPLE SITE LEFT RADIAL; BG TIDAL VOLUME(mL) 550 mL; BG TOTAL HEMOGLOBIN 9.4 g/dL (12.0-18.0); BG VENT MODE VENT - A/C; BG VENT RATE 16 set
[2017-06-13 08:17] LABS: CARBON DIOXIDE 28 mEq/L (21-32); CHLORIDE 104 mEq/L (98-107)
[2017-06-13 08:19] LABS: HEMATOCRIT. 26.9 % (42.0-52.0); HEMOGLOBIN. 8.5 g/dL (14.0-18.0); MEAN CORPUSCULAR HEMOGLOBIN 26.5 pg (28.0-32.0); MEAN CORPUSCULAR VOLUME 84.5 fL (80.0-94.0); MEAN PLATELET VOLUME 9.2 fl (7.4-10.4); PLATELET 306 x1000/uL (130-400); RED BLOOD CELL COUNT 3.19 mill/uL (4.7-6.1)
[2017-06-13] MEDS ORDERED: INSULIN LISPRO 100 UNITS/ML SUBCUT SCH (08:20)
[2017-06-13] MEDS: DIVALPROEX SODIUM 500MG DR TABLET PO SCH ×2 (09:20→20:13)
[2017-06-13] MEDS: FAMOTIDINE 20MG/2ML VIAL IV SCH ×2 (09:20→20:13)
[2017-06-13] MEDS: OLANZAPINE 10MG TABLET PO SCH ×2 (09:20→17:24)
[2017-06-13] MEDS ORDERED: SODIUM CHLORIDE 0.9% IV PRN (10:00)
[2017-06-13] MEDS ORDERED: FENTANYL CITRATE IV PRN (10:00)
[2017-06-13] MEDS: RISPERIDONE 1MG TABLET PO SCH ×2 (10:12→20:13)
[2017-06-13] MEDS: INSULIN LISPRO 100 UNITS/ML SUBCUT SCH ×2 (11:09→17:23)
[2017-06-13] MEDS: BLOOD SUGAR DIAGNOSTIC STRIP TEST SCH ×2 (11:09→17:24)
[2017-06-13 11:12] LABS: PLATELET ESTIMATE NORMAL
[2017-06-13] MEDS: FENTANYL CITRATE/PF 1,000 MCG in SODIUM CHLORIDE 0.9% 80 ML IV PRN ×2 (11:46→22:58)
[2017-06-13] MEDS: MIDAZOLAM HCL 100 MG in DEXT 5% WATER 80 ML IV PRN (18:35)
[2017-06-13] MEDS: BENZTROPINE MESYLATE 1MG TABLET PO SCH (20:13)
[2017-06-13] MEDS: DOCUSATE SODIUM SUGAR FREE 100MG/10ML UDC PO PRN (20:13)
[2017-06-13] MEDS: PHENYTOIN SODIUM 300MG in SODIUM CHLORIDE 0.9% 50ML IV SCH (21:36)
[2017-06-14] VITALS (72 sets, daily range): BP systolic 102–163; BP diastolic 42–101
[2017-06-14] MEDS: BLOOD SUGAR DIAGNOSTIC STRIP TEST SCH ×4 (00:01→17:20)
[2017-06-14] MEDS: IPRATROPIUM/ALBUTEROL 0.5-3(2.5)MG/3ML NEB HHN SCH ×6 (00:23→20:36)
[2017-06-14] MEDS: SODIUM CHLORIDE 0.45% 1,000 ML IV SCH ×2 (02:11→13:34)
[2017-06-14] MEDS: PROPOFOL 10MG/ML 100ML 100 ML IV PRN ×7 (02:24→23:32)
[2017-06-14] MEDS: METOPROLOL TARTRATE 50MG TABLET PO SCH ×3 (05:45→21:05)
[2017-06-14] MEDS: METHYLPREDNISOLONE SOD SUCC 125 MG/2 ML VIAL IV SCH ×4 (05:45→17:29)
[2017-06-14] MEDS: SODIUM CHLORIDE 0.9% INJ 3ML FLUSH IVF SCH ×3 (05:45→21:05)
[2017-06-14] MEDS: INSULIN LISPRO 100 UNITS/ML SUBCUT SCH ×4 (05:46→17:25)
[2017-06-14] MEDS: CALAMINE LOTION 120ML TOP SCH ×3 (05:46→21:05)
[2017-06-14] MEDS: MIDAZOLAM HCL 100 MG in DEXT 5% WATER 80 ML IV PRN ×2 (05:47→23:28)
[2017-06-14 05:55] LABS: HEMOGLOBIN. 8.3 g/dL (14.0-18.0); MEAN CORPUSCULAR HEMOGLOBIN 26.8 pg (28.0-32.0); MEAN CORPUSCULAR VOLUME 83.7 fL (80.0-94.0); MEAN PLATELET VOLUME 8.9 fl (7.4-10.4); PLATELET 287 x1000/uL (130-400); RED BLOOD CELL COUNT 3.11 mill/uL (4.7-6.1); RED CELL DISTRIBUTION WIDTH 18.7 % (11.6-14.6)
[2017-06-14 07:00] LABS: CARBON DIOXIDE 32 mEq/L (21-32); CHLORIDE 102 mEq/L (98-107)
[2017-06-14] MEDS: FENTANYL CITRATE/PF 1,000 MCG in SODIUM CHLORIDE 0.9% 80 ML IV PRN ×2 (07:46→18:26)
[2017-06-14] MEDS: LORAZEPAM 2MG/ML CPJ IV PRN (08:10)
[2017-06-14] MEDS: FAMOTIDINE 20MG/2ML VIAL IV SCH ×2 (08:34→20:50)
[2017-06-14] MEDS: OLANZAPINE 10MG TABLET PO SCH ×2 (08:34→17:29)
[2017-06-14] MEDS: RISPERIDONE 1MG TABLET PO SCH (08:34)
[2017-06-14] MEDS: DIVALPROEX SODIUM 500MG DR TABLET PO SCH ×2 (08:34→20:50)
[2017-06-14 09:27] LABS: BG BASE EXCESS 4.6 mmol/L (-2.0-2.0); BG CARBOXYHEMOGLOBIN 0.3 % (0.5-1.5); BG DEOXYHEMOGLOBIN 9.9 % (0.0-5.0); BG FRACTION INSPIRED OXYGEN 40; BG HCO3 ACT 29.6 mmol/L (22.0-26.0); BG METHEMOGLOBIN 0.2 % (0.0-1.5); BG OXYGEN SATURATION 90.1 % (92.0-98.5); BG OXYHEMOGLOBIN 89.6 % (94.0-97.0); BG PH 7.426 (7.350-7.450); BG PO2 61.6 mmHg (75.0-100.0); BG SAMPLE SITE LEFT RADIAL; BG TIDAL VOLUME(mL) 550 mL; BG TOTAL HEMOGLOBIN 9.7 g/dL (12.0-18.0); BG VENT MODE VENT - A/C; BG VENT RATE 18 set
[2017-06-14 10:40] LABS: PLATELET ESTIMATE NORMAL
[2017-06-14] MEDS ORDERED: KETAMINE HCL 50 MG/ML 10ML IV ONE (10:45)
[2017-06-14] MEDS: SODIUM CHLORIDE 0.9% IV PRN (12:01)
[2017-06-14] MEDS: KETAMINE HCL IV PRN (12:01)
[2017-06-14] MEDS ORDERED: METHYLPREDNISOLONE SOD SUCC 40 MG/ML VIAL IV SCH (14:00)
[2017-06-14] MEDS ORDERED: QUETIAPINE FUMARATE 50MG TABLET PO SCH (14:00)
[2017-06-14] MEDS: BENZTROPINE MESYLATE 1MG TABLET PO SCH (20:50)
[2017-06-14] MEDS: LACTULOSE 20G/30ML UDC PO PRN (20:50)
[2017-06-14] MEDS: PHENYTOIN SODIUM 300MG in SODIUM CHLORIDE 0.9% 50ML IV SCH (20:52)
[2017-06-15] VITALS (97 sets, daily range): BP systolic 65–186; BP diastolic 32–157
[2017-06-15] MEDS: BLOOD SUGAR DIAGNOSTIC STRIP TEST SCH ×5 (00:21→23:44)
[2017-06-15] MEDS: METHYLPREDNISOLONE SOD SUCC 125 MG/2 ML VIAL IV SCH ×5 (00:21→23:49)
[2017-06-15] MEDS: IPRATROPIUM/ALBUTEROL 0.5-3(2.5)MG/3ML NEB HHN SCH ×6 (00:26→20:32)
[2017-06-15] MEDS ORDERED: VECURONIUM BROMIDE 10 MG in DEXT 5% WATER 100 ML IV PRN (01:00)
[2017-06-15] MEDS: PROPOFOL 10MG/ML 100ML 100 ML IV PRN ×3 (03:40→18:25)
[2017-06-15] MEDS: SODIUM CHLORIDE 0.45% 1,000 ML IV SCH ×2 (03:40→16:19)
[2017-06-15] MEDS: FENTANYL CITRATE/PF 1,000 MCG in SODIUM CHLORIDE 0.9% 80 ML IV PRN ×3 (03:44→20:22)
[2017-06-15] MEDS: CALAMINE LOTION 120ML TOP SCH ×3 (05:08→21:05)
[2017-06-15] MEDS: SODIUM CHLORIDE 0.9% INJ 3ML FLUSH IVF SCH ×3 (05:08→21:05)
[2017-06-15] MEDS: INSULIN LISPRO 100 UNITS/ML SUBCUT SCH ×5 (05:08→23:51)
[2017-06-15] MEDS: METOPROLOL TARTRATE 50MG TABLET PO SCH ×3 (05:12→22:00)
[2017-06-15 06:30] LABS: HEMOGLOBIN. 8.9 g/dL (14.0-18.0); MEAN CORPUSCULAR HEMOGLOBIN 26.8 pg (28.0-32.0); MEAN CORPUSCULAR VOLUME 84.6 fL (80.0-94.0); PLATELET 315 x1000/uL (130-400); RED CELL DISTRIBUTION WIDTH 18.8 % (11.6-14.6)
[2017-06-15] MEDS: MIDAZOLAM HCL 100 MG in DEXT 5% WATER 80 ML IV PRN ×3 (06:37→16:20)
[2017-06-15] MEDS: SODIUM CHLORIDE 0.9% IV PRN ×3 (06:39→21:25)
[2017-06-15] MEDS: KETAMINE HCL IV PRN ×3 (06:39→21:25)
[2017-06-15 06:48] LABS: CARBON DIOXIDE 30 mEq/L (21-32); CHLORIDE 102 mEq/L (98-107)
[2017-06-15 07:28] LABS: BG BASE EXCESS 8.6 mmol/L (-2.0-2.0); BG DEOXYHEMOGLOBIN 6.2 % (0.0-5.0); BG HCO3 ACT 34.6 mmol/L (22.0-26.0); BG METHEMOGLOBIN 0.1 % (0.0-1.5); BG OXYGEN SATURATION 93.8 % (92.0-98.5); BG OXYHEMOGLOBIN 93.7 % (94.0-97.0); BG PCO2 55.5 mmHg (35.0-45.0); BG PH 7.413 (7.350-7.450); BG PO2 74.8 mmHg (75.0-100.0); BG SAMPLE SITE RIGHT RADIAL; BG TIDAL VOLUME(mL) 550 mL; BG TOTAL HEMOGLOBIN 10.6 g/dL (12.0-18.0); BG VENT MODE VENT - A/C; BG VENT RATE 18 set
[2017-06-15] MEDS: OLANZAPINE 10MG TABLET PO SCH ×2 (09:54→17:59)
[2017-06-15] MEDS: DIVALPROEX SODIUM 500MG DR TABLET PO SCH ×2 (09:54→10:00)
[2017-06-15] MEDS: FAMOTIDINE 20MG/2ML VIAL IV SCH ×2 (09:54→21:05)
[2017-06-15 10:03] LABS: ATYPICAL LYMPHOCYTES 1; PLATELET ESTIMATE NORMAL
[2017-06-15] MEDS ORDERED: PHENYTOIN SODIUM 800 MG in SODIUM CHLORIDE 0.9% 100 ML IV NR (12:00)
[2017-06-15] MEDS: LORAZEPAM 2MG/ML CPJ IV PRN ×3 (12:07→17:29)
[2017-06-15] MEDS: VALPROATE SODIUM 250MG/5ML UDC PO SCH ×3 (12:25→23:48)
[2017-06-15] MEDS: HALOPERIDOL LACTATE 5MG/ML VIAL IM PRN ×2 (13:11→17:44)
[2017-06-15] MEDS ORDERED: DEXMEDETOMIDINE 400 MCG/100 ML 100 ML IV PRN (13:30)
[2017-06-15] MEDS ORDERED: KETAMINE HCL 50 MG/ML 10ML IV ONE (14:00)
[2017-06-15] MEDS ORDERED: QUETIAPINE FUMARATE 100MG TABLET PO SCH (18:00)
[2017-06-15] MEDS: QUETIAPINE FUMARATE 50MG TABLET PO SCH (18:05)
[2017-06-15] MEDS: QUETIAPINE FUMARATE 100MG TABLET PO SCH (18:05)
[2017-06-15] MEDS: PHENYTOIN SODIUM 300MG in SODIUM CHLORIDE 0.9% 50ML IV SCH (21:05)
[2017-06-15] MEDS: BENZTROPINE MESYLATE 1MG TABLET PO SCH (21:06)
[2017-06-16] VITALS (93 sets, daily range): BP systolic 90–177; BP diastolic 54–141
[2017-06-16] MEDS: IPRATROPIUM/ALBUTEROL 0.5-3(2.5)MG/3ML NEB HHN SCH ×6 (00:02→20:00)
[2017-06-16] MEDS: HALOPERIDOL LACTATE 5MG/ML VIAL IM PRN ×2 (02:13→07:47)
[2017-06-16] MEDS: QUETIAPINE FUMARATE 100MG TABLET PO SCH ×3 (02:28→17:28)
[2017-06-16] MEDS: QUETIAPINE FUMARATE 50MG TABLET PO SCH ×3 (02:28→17:28)
[2017-06-16] MEDS: FENTANYL CITRATE/PF 1,000 MCG in SODIUM CHLORIDE 0.9% 80 ML IV PRN ×5 (02:41→23:29)
[2017-06-16] MEDS: SODIUM CHLORIDE 0.45% 1,000 ML IV SCH ×2 (03:06→14:57)
[2017-06-16] MEDS: MIDAZOLAM HCL 100 MG in DEXT 5% WATER 80 ML IV PRN ×2 (03:18→12:36)
[2017-06-16] MEDS: DIPHENHYDRAMINE 50MG/ML VIAL IV PRN ×3 (04:16→13:33)
[2017-06-16] MEDS: LORAZEPAM 2MG/ML CPJ IV PRN ×3 (04:16→13:54)
[2017-06-16] MEDS: SODIUM CHLORIDE 0.9% INJ 3ML FLUSH IVF SCH ×3 (05:18→21:07)
[2017-06-16] MEDS: CALAMINE LOTION 120ML TOP SCH ×3 (05:19→21:08)
[2017-06-16] MEDS: BLOOD SUGAR DIAGNOSTIC STRIP TEST SCH ×4 (05:23→23:42)
[2017-06-16] MEDS: INSULIN LISPRO 100 UNITS/ML SUBCUT SCH ×4 (05:23→23:48)
[2017-06-16 05:27] LABS: HEMOGLOBIN. 9.4 g/dL (14.0-18.0); MEAN CORPUSCULAR HEMOGLOBIN 26.4 pg (28.0-32.0); MEAN CORPUSCULAR VOLUME 84.6 fL (80.0-94.0); MEAN PLATELET VOLUME 8.6 fl (7.4-10.4); PLATELET 379 x1000/uL (130-400); RED BLOOD CELL COUNT 3.55 mill/uL (4.7-6.1); RED CELL DISTRIBUTION WIDTH 18.7 % (11.6-14.6)
[2017-06-16 05:49] LABS: CARBON DIOXIDE 33 mEq/L (21-32); CHLORIDE 100 mEq/L (98-107); CREATINE KINASE 97 IU/L (39-308); PHOSPHORUS 3.2 mg/dL (2.5-4.9)
[2017-06-16] MEDS: METOPROLOL TARTRATE 50MG TABLET PO SCH ×3 (06:08→21:02)
[2017-06-16] MEDS: VALPROATE SODIUM 250MG/5ML UDC PO SCH ×4 (06:08→23:46)
[2017-06-16] MEDS: METHYLPREDNISOLONE SOD SUCC 125 MG/2 ML VIAL IV SCH ×4 (06:09→23:46)
[2017-06-16] MEDS: SODIUM CHLORIDE 0.9% IV PRN (07:45)
[2017-06-16] MEDS: KETAMINE HCL IV PRN (07:45)
[2017-06-16] MEDS: FAMOTIDINE 20MG/2ML VIAL IV SCH ×2 (08:01→21:07)
[2017-06-16] MEDS: OLANZAPINE 10MG TABLET PO SCH ×2 (08:01→17:28)
[2017-06-16] MEDS ORDERED: SODIUM BICARBONATE 4.2% 5 MEQ/10 ML DISP.SYRIN IV ONE (09:56)
[2017-06-16] MEDS ORDERED: LIDOCAINE HCL 1% 20ML VIAL (Pyxis) INJ ONE (09:56)
[2017-06-16] MEDS: VECURONIUM BROMIDE 10 MG in DEXT 5% WATER 100 ML IV PRN ×2 (10:16→11:39)
[2017-06-16] MEDS ORDERED: GADOBENATE DIMEGLUMINE 529 MG/ML 10ML IV ONE (11:14)
[2017-06-16] MEDS ORDERED: VECURONIUM BROMIDE 10 MG/VIAL IV SCH (11:30)
[2017-06-16] MEDS ORDERED: VECURONIUM BROMIDE 10 MG/VIAL IV NR (11:30)
[2017-06-16] MEDS ORDERED: PHENYTOIN SODIUM 500 MG in SODIUM CHLORIDE 0.9% 100 ML IV NR (12:00)
[2017-06-16] MEDS ORDERED: DEXT 5% IV PRN (12:00)
[2017-06-16] MEDS ORDERED: WATER IV PRN (12:00)
[2017-06-16] MEDS ORDERED: VECURONIUM BROMIDE IV PRN ×2 (12:00)
[2017-06-16] MEDS ORDERED: WATER FOR INJECTION STERILE IV PRN (12:00)
[2017-06-16] MEDS: RISPERIDONE 1MG TABLET PO SCH ×2 (13:32→21:07)
[2017-06-16] MEDS: PROPOFOL 10MG/ML 100ML 100 ML IV PRN ×4 (13:42→22:18)
[2017-06-16 17:26] LABS: VITAMIN B12 SERUM 179 pg/mL (211-911)
[2017-06-16] MEDS: ACETYLCYSTEINE 100MG/ML 10% VIAL 4ML INH SCH (20:00)
[2017-06-16] MEDS: PHENYTOIN SODIUM 300MG in SODIUM CHLORIDE 0.9% 50ML IV SCH (21:07)
[2017-06-16] MEDS: BENZTROPINE MESYLATE 1MG TABLET PO SCH (21:07)
[2017-06-16 22:33] LABS: NUCLEATED RED BLOOD CELLS 1 /100 WBC; PLATELET ESTIMATE NORMAL
[2017-06-17] VITALS (63 sets, daily range): BP systolic 91–158; BP diastolic 29–107
[2017-06-17] MEDS: IPRATROPIUM/ALBUTEROL 0.5-3(2.5)MG/3ML NEB HHN SCH ×6 (00:16→20:22)
[2017-06-17] MEDS: ACETYLCYSTEINE 100MG/ML 10% VIAL 4ML INH SCH ×6 (00:20→20:22)
[2017-06-17] MEDS: PROPOFOL 10MG/ML 100ML 100 ML IV PRN ×7 (01:27→23:34)
[2017-06-17] MEDS: QUETIAPINE FUMARATE 50MG TABLET PO SCH ×3 (01:39→17:29)
[2017-06-17] MEDS: QUETIAPINE FUMARATE 100MG TABLET PO SCH ×3 (01:39→17:29)
[2017-06-17] MEDS: SODIUM CHLORIDE 0.45% 1,000 ML IV SCH ×2 (03:09→16:12)
[2017-06-17] MEDS: MIDAZOLAM HCL 100 MG in DEXT 5% WATER 80 ML IV PRN ×2 (04:16→20:06)
[2017-06-17] MEDS: FENTANYL CITRATE/PF 1,000 MCG in SODIUM CHLORIDE 0.9% 80 ML IV PRN ×4 (04:51→21:30)
[2017-06-17] MEDS: METOPROLOL TARTRATE 50MG TABLET PO SCH ×3 (04:54→21:27)
[2017-06-17] MEDS: CALAMINE LOTION 120ML TOP SCH ×3 (04:55→21:37)
[2017-06-17] MEDS: INSULIN LISPRO 100 UNITS/ML SUBCUT SCH ×4 (05:09→23:50)
[2017-06-17] MEDS: BLOOD SUGAR DIAGNOSTIC STRIP TEST SCH ×4 (05:09→23:49)
[2017-06-17] MEDS: METHYLPREDNISOLONE SOD SUCC 125 MG/2 ML VIAL IV SCH ×4 (05:20→23:22)
[2017-06-17] MEDS: VALPROATE SODIUM 250MG/5ML UDC PO SCH ×4 (05:20→23:22)
[2017-06-17] MEDS: SODIUM CHLORIDE 0.9% INJ 3ML FLUSH IVF SCH ×3 (05:20→21:37)
[2017-06-17] MEDS: OLANZAPINE 10MG TABLET PO SCH ×2 (09:22→17:29)
[2017-06-17] MEDS: FAMOTIDINE 20MG/2ML VIAL IV SCH ×2 (09:23→21:09)
[2017-06-17] MEDS: RISPERIDONE 1MG TABLET PO SCH ×2 (09:46→21:09)
[2017-06-17 10:19] LABS: HEMATOCRIT. 26.6 % (42.0-52.0); HEMOGLOBIN. 8.4 g/dL (14.0-18.0); MEAN CORPUSCULAR HEMOGLOBIN 26.7 pg (28.0-32.0); MEAN CORPUSCULAR VOLUME 84.2 fL (80.0-94.0); MEAN PLATELET VOLUME 9.3 fl (7.4-10.4); PLATELET 332 x1000/uL (130-400); RED BLOOD CELL COUNT 3.15 mill/uL (4.7-6.1); RED CELL DISTRIBUTION WIDTH 19.2 % (11.6-14.6)
[2017-06-17 10:38] LABS: CARBON DIOXIDE 30 mEq/L (21-32); CHLORIDE 99 mEq/L (98-107)
[2017-06-17 12:04] LABS: PLATELET ESTIMATE NORMAL
[2017-06-17] MEDS: PIPERACILLIN/TAZ 3.375G PREMIX 50 ML IV SCH ×2 (12:07→20:08)
[2017-06-17] MEDS: METOCLOPRAMIDE HCL 10MG/2ML VIAL IV SCH ×3 (12:14→23:21)
[2017-06-17] MEDS: LACTULOSE 20G/30ML UDC PO PRN (14:32)
[2017-06-17 14:49] LABS: BG CARBOXYHEMOGLOBIN 0.3 % (0.5-1.5); BG DEOXYHEMOGLOBIN 6.4 % (0.0-5.0); BG FRACTION INSPIRED OXYGEN 50; BG HCO3 ACT 36.2 mmol/L (22.0-26.0); BG METHEMOGLOBIN 0.2 % (0.0-1.5); BG OXYGEN SATURATION 93.6 % (92.0-98.5); BG OXYHEMOGLOBIN 93.1 % (94.0-97.0); BG PCO2 52.4 mmHg (35.0-45.0); BG PH 7.457 (7.350-7.450); BG PO2 73.3 mmHg (75.0-100.0); BG SAMPLE SITE LEFT RADIAL; BG TIDAL VOLUME(mL) 550 mL; BG TOTAL HEMOGLOBIN 8.9 g/dL (12.0-18.0); BG VENT MODE VENT - A/C; BG VENT RATE 18 set
[2017-06-17] MEDS: LORAZEPAM 2MG/ML CPJ IV PRN (16:38)
[2017-06-17] MEDS: PHENYTOIN SODIUM 300MG in SODIUM CHLORIDE 0.9% 50ML IV SCH (21:09)
[2017-06-17] MEDS: BENZTROPINE MESYLATE 1MG TABLET PO SCH (21:09)
[2017-06-18] VITALS (48 sets, daily range): BP systolic 99–148; BP diastolic 54–106
[2017-06-18] MEDS: ACETYLCYSTEINE 100MG/ML 10% VIAL 4ML INH SCH ×6 (00:31→20:30)
[2017-06-18] MEDS: IPRATROPIUM/ALBUTEROL 0.5-3(2.5)MG/3ML NEB HHN SCH ×6 (00:31→20:30)
[2017-06-18] MEDS: LACTULOSE 20G/30ML UDC PO PRN ×3 (00:58→12:16)
[2017-06-18] MEDS: QUETIAPINE FUMARATE 100MG TABLET PO SCH ×3 (01:33→17:19)
[2017-06-18] MEDS: QUETIAPINE FUMARATE 50MG TABLET PO SCH ×3 (01:33→17:19)
[2017-06-18] MEDS: PROPOFOL 10MG/ML 100ML 100 ML IV PRN ×7 (02:10→21:23)
[2017-06-18] MEDS: FENTANYL CITRATE/PF 1,000 MCG in SODIUM CHLORIDE 0.9% 80 ML IV PRN ×4 (03:21→18:41)
[2017-06-18] MEDS: PIPERACILLIN/TAZ 3.375G PREMIX 50 ML IV SCH ×4 (03:28→23:46)
[2017-06-18] MEDS: METOCLOPRAMIDE HCL 10MG/2ML VIAL IV SCH ×4 (05:25→23:46)
[2017-06-18] MEDS: VALPROATE SODIUM 250MG/5ML UDC PO SCH ×4 (05:26→23:46)
[2017-06-18] MEDS: METHYLPREDNISOLONE SOD SUCC 125 MG/2 ML VIAL IV SCH ×4 (05:26→23:46)
[2017-06-18] MEDS: SODIUM CHLORIDE 0.45% 1,000 ML IV SCH ×2 (05:27→17:20)
[2017-06-18] MEDS: CALAMINE LOTION 120ML TOP SCH ×3 (05:31→21:26)
[2017-06-18] MEDS: SODIUM CHLORIDE 0.9% INJ 3ML FLUSH IVF SCH ×3 (05:32→21:25)
[2017-06-18] MEDS: METOPROLOL TARTRATE 50MG TABLET PO SCH ×3 (05:32→21:25)
[2017-06-18] MEDS: BLOOD SUGAR DIAGNOSTIC STRIP TEST SCH ×4 (05:43→23:41)
[2017-06-18] MEDS: INSULIN LISPRO 100 UNITS/ML SUBCUT SCH ×4 (05:48→23:41)
[2017-06-18] MEDS: FAMOTIDINE 20MG/2ML VIAL IV SCH ×2 (08:17→20:28)
[2017-06-18] MEDS: RISPERIDONE 1MG TABLET PO SCH ×2 (08:17→20:28)
[2017-06-18] MEDS: OLANZAPINE 10MG TABLET PO SCH ×2 (08:17→17:19)
[2017-06-18] MEDS: MIDAZOLAM HCL 100 MG in DEXT 5% WATER 80 ML IV PRN ×2 (10:38→20:54)
[2017-06-18] MEDS: LORAZEPAM 2MG/ML CPJ IV PRN ×2 (16:39→22:12)
[2017-06-18] MEDS: BENZTROPINE MESYLATE 1MG TABLET PO SCH (20:28)
[2017-06-18] MEDS: PHENYTOIN SODIUM 300MG in SODIUM CHLORIDE 0.9% 50ML IV SCH (20:35)
[2017-06-19] VITALS (48 sets, daily range): BP systolic 99–157; BP diastolic 65–108
[2017-06-19] MEDS: FENTANYL CITRATE/PF 1,000 MCG in SODIUM CHLORIDE 0.9% 80 ML IV PRN (00:06)
[2017-06-19] MEDS: PROPOFOL 10MG/ML 100ML 100 ML IV PRN ×8 (00:38→23:18)
[2017-06-19] MEDS: IPRATROPIUM/ALBUTEROL 0.5-3(2.5)MG/3ML NEB HHN SCH ×6 (00:44→20:07)
[2017-06-19] MEDS: ACETYLCYSTEINE 100MG/ML 10% VIAL 4ML INH SCH ×6 (00:44→20:07)
[2017-06-19] MEDS: QUETIAPINE FUMARATE 50MG TABLET PO SCH ×3 (01:29→17:52)
[2017-06-19] MEDS: QUETIAPINE FUMARATE 100MG TABLET PO SCH ×3 (01:29→17:51)
[2017-06-19] MEDS ORDERED: FENTANYL CITRATE/PF 1,000 MCG in SODIUM CHLORIDE 0.9% 80 ML IV PRN (04:00)
[2017-06-19] MEDS: METHYLPREDNISOLONE SOD SUCC 125 MG/2 ML VIAL IV SCH ×4 (05:08→23:26)
[2017-06-19] MEDS: METOPROLOL TARTRATE 50MG TABLET PO SCH ×3 (05:09→22:06)
[2017-06-19] MEDS: VALPROATE SODIUM 250MG/5ML UDC PO SCH ×4 (05:09→23:26)
[2017-06-19] MEDS: METOCLOPRAMIDE HCL 10MG/2ML VIAL IV SCH ×4 (05:09→23:26)
[2017-06-19] MEDS: PIPERACILLIN/TAZ 3.375G PREMIX 50 ML IV SCH ×4 (05:10→23:26)
[2017-06-19] MEDS: SODIUM CHLORIDE 0.9% INJ 3ML FLUSH IVF SCH ×3 (05:10→22:33)
[2017-06-19] MEDS: CALAMINE LOTION 120ML TOP SCH ×3 (05:11→22:06)
[2017-06-19] MEDS: BLOOD SUGAR DIAGNOSTIC STRIP TEST SCH ×4 (05:25→23:52)
[2017-06-19] MEDS: INSULIN LISPRO 100 UNITS/ML SUBCUT SCH ×4 (05:25→23:54)
[2017-06-19] MEDS: SODIUM CHLORIDE 0.45% 1,000 ML IV SCH ×2 (05:32→17:52)
[2017-06-19] MEDS: FAMOTIDINE 20MG/2ML VIAL IV SCH ×2 (09:53→20:49)
[2017-06-19] MEDS: RISPERIDONE 1MG TABLET PO SCH ×2 (09:54→20:49)
[2017-06-19] MEDS: OLANZAPINE 10MG TABLET PO SCH ×2 (09:54→17:57)
[2017-06-19] MEDS: MIDAZOLAM HCL 100 MG in DEXT 5% WATER 80 ML IV PRN ×2 (09:56→23:10)
[2017-06-19] MEDS: MORPHINE SULFATE 100 MG in DEXT 5% WATER 90 ML IV PRN ×2 (11:08→22:39)
[2017-06-19] MEDS: HALOPERIDOL LACTATE 5MG/ML VIAL IM PRN (13:25)
[2017-06-19] MEDS ORDERED: LORAZEPAM 2MG/ML CPJ IM PRN (16:30)
[2017-06-19] MEDS ORDERED: PHENYTOIN SODIUM 100MG/2ML VIAL IV ONE (20:48)
[2017-06-19] MEDS: PHENYTOIN SODIUM 300MG in SODIUM CHLORIDE 0.9% 50ML IV SCH (20:49)
[2017-06-19] MEDS: BENZTROPINE MESYLATE 1MG TABLET PO SCH (20:50)
[2017-06-20] VITALS (25 sets, daily range): BP systolic 103–133; BP diastolic 64–85
[2017-06-20] MEDS: ACETYLCYSTEINE 100MG/ML 10% VIAL 4ML INH SCH ×7 (00:02→23:24)
[2017-06-20] MEDS: IPRATROPIUM/ALBUTEROL 0.5-3(2.5)MG/3ML NEB HHN SCH ×7 (00:02→23:24)
[2017-06-20] MEDS: QUETIAPINE FUMARATE 100MG TABLET PO SCH ×3 (01:34→18:56)
[2017-06-20] MEDS: QUETIAPINE FUMARATE 50MG TABLET PO SCH ×3 (01:34→18:56)
[2017-06-20] MEDS: PROPOFOL 10MG/ML 100ML 100 ML IV PRN ×7 (02:07→22:51)
[2017-06-20] MEDS: METOCLOPRAMIDE HCL 10MG/2ML VIAL IV SCH ×3 (05:23→18:57)
[2017-06-20] MEDS: METHYLPREDNISOLONE SOD SUCC 125 MG/2 ML VIAL IV SCH ×4 (05:23→23:38)
[2017-06-20] MEDS: VALPROATE SODIUM 250MG/5ML UDC PO SCH ×4 (05:23→23:38)
[2017-06-20] MEDS: SODIUM CHLORIDE 0.9% INJ 3ML FLUSH IVF SCH ×3 (05:24→22:21)
[2017-06-20] MEDS: PIPERACILLIN/TAZ 3.375G PREMIX 50 ML IV SCH ×2 (05:24→12:44)
[2017-06-20] MEDS: BLOOD SUGAR DIAGNOSTIC STRIP TEST SCH ×3 (05:24→18:00)
[2017-06-20] MEDS: CALAMINE LOTION 120ML TOP SCH ×3 (05:25→22:19)
[2017-06-20] MEDS: METOPROLOL TARTRATE 50MG TABLET PO SCH ×3 (05:25→22:19)
[2017-06-20] MEDS: INSULIN LISPRO 100 UNITS/ML SUBCUT SCH ×3 (06:18→18:00)
[2017-06-20] MEDS: SODIUM CHLORIDE 0.45% 1,000 ML IV SCH ×2 (07:08→22:55)
[2017-06-20 07:49] LABS: BG BASE EXCESS 10.1 mmol/L (-2.0-2.0); BG CARBOXYHEMOGLOBIN 0.2 % (0.5-1.5); BG FRACTION INSPIRED OXYGEN 45; BG HCO3 ACT 35.5 mmol/L (22.0-26.0); BG METHEMOGLOBIN 0.3 % (0.0-1.5); BG OXYHEMOGLOBIN 95.5 % (94.0-97.0); BG PCO2 52.2 mmHg (35.0-45.0); BG PO2 87.1 mmHg (75.0-100.0); BG SAMPLE SITE RIGHT BRACHIAL; BG TIDAL VOLUME(mL) 550 mL; BG TOTAL HEMOGLOBIN 10.1 g/dL (12.0-18.0); BG VENT MODE VENT - A/C; BG VENT RATE 18 set
[2017-06-20] MEDS: MORPHINE SULFATE 100 MG in DEXT 5% WATER 90 ML IV PRN ×2 (09:01→19:38)
[2017-06-20] MEDS: RISPERIDONE 1MG TABLET PO SCH ×2 (09:27→20:49)
[2017-06-20] MEDS: FAMOTIDINE 20MG/2ML VIAL IV SCH ×2 (09:27→21:12)
[2017-06-20] MEDS: OLANZAPINE 10MG TABLET PO SCH ×2 (09:27→16:16)
[2017-06-20] MEDS: MIDAZOLAM HCL 100 MG in DEXT 5% WATER 80 ML IV PRN (12:34)
[2017-06-20] MEDS ORDERED: VANCOMYCIN 2,000 MG in DEXT 5% WATER 500 ML IV NR (14:00)
[2017-06-20] MEDS: HALOPERIDOL 5MG TABLET PO SCH (16:17)
[2017-06-20] MEDS: BENZTROPINE MESYLATE 1MG TABLET PO SCH (20:50)
[2017-06-20] MEDS: PHENYTOIN SODIUM 300MG in SODIUM CHLORIDE 0.9% 50ML IV SCH (20:50)
[2017-06-21] VITALS (47 sets, daily range): BP systolic 104–142; BP diastolic 63–93
[2017-06-21] MEDS: INSULIN LISPRO 100 UNITS/ML SUBCUT SCH ×4 (00:06→17:27)
[2017-06-21] MEDS: MIDAZOLAM HCL 100 MG in DEXT 5% WATER 80 ML IV PRN ×2 (00:32→12:54)
[2017-06-21] MEDS: QUETIAPINE FUMARATE 100MG TABLET PO SCH ×3 (01:33→17:11)
[2017-06-21] MEDS: QUETIAPINE FUMARATE 50MG TABLET PO SCH ×3 (01:33→17:11)
[2017-06-21] MEDS: VANCOMYCIN 1250MG in DEXTROSE 5% WATER 250ML IV SCH ×2 (01:45→14:18)
[2017-06-21] MEDS: METOCLOPRAMIDE HCL 10MG/2ML VIAL IV SCH ×5 (01:52→23:47)
[2017-06-21] MEDS: IPRATROPIUM/ALBUTEROL 0.5-3(2.5)MG/3ML NEB HHN SCH ×5 (03:11→20:43)
[2017-06-21] MEDS: ACETYLCYSTEINE 100MG/ML 10% VIAL 4ML INH SCH ×5 (03:11→20:43)
[2017-06-21] MEDS: PROPOFOL 10MG/ML 100ML 100 ML IV PRN ×6 (03:33→23:47)
[2017-06-21] MEDS: METOPROLOL TARTRATE 50MG TABLET PO SCH ×3 (05:23→21:00)
[2017-06-21] MEDS: VALPROATE SODIUM 250MG/5ML UDC PO SCH ×4 (05:29→23:47)
[2017-06-21] MEDS: METHYLPREDNISOLONE SOD SUCC 125 MG/2 ML VIAL IV SCH ×4 (05:31→23:47)
[2017-06-21] MEDS: BLOOD SUGAR DIAGNOSTIC STRIP TEST SCH ×5 (05:32→23:57)
[2017-06-21] MEDS: SODIUM CHLORIDE 0.9% INJ 3ML FLUSH IVF SCH ×3 (06:49→21:00)
[2017-06-21] MEDS: CALAMINE LOTION 120ML TOP SCH ×3 (06:49→21:10)
[2017-06-21] MEDS: MORPHINE SULFATE 100 MG in DEXT 5% WATER 90 ML IV PRN ×2 (06:54→15:36)
[2017-06-21] MEDS: OLANZAPINE 10MG TABLET PO SCH ×2 (09:08→16:32)
[2017-06-21] MEDS: RISPERIDONE 1MG TABLET PO SCH ×2 (09:08→21:02)
[2017-06-21] MEDS: HALOPERIDOL 5MG TABLET PO SCH ×3 (09:08→16:32)
[2017-06-21] MEDS: FAMOTIDINE 20MG/2ML VIAL IV SCH ×2 (11:24→21:03)
[2017-06-21] MEDS: SODIUM CHLORIDE 0.45% 1,000 ML IV SCH (14:54)
[2017-06-21] MEDS: BENZTROPINE MESYLATE 1MG TABLET PO SCH (21:02)
[2017-06-21] MEDS: PHENYTOIN SODIUM 300MG in SODIUM CHLORIDE 0.9% 50ML IV SCH (21:03)
[2017-06-22] VITALS (54 sets, daily range): BP systolic 111–166; BP diastolic 22–105
[2017-06-22] MEDS: INSULIN LISPRO 100 UNITS/ML SUBCUT SCH ×5 (00:01→23:48)
[2017-06-22] MEDS: IPRATROPIUM/ALBUTEROL 0.5-3(2.5)MG/3ML NEB HHN SCH ×6 (00:44→19:42)
[2017-06-22] MEDS: QUETIAPINE FUMARATE 50MG TABLET PO SCH ×3 (02:06→17:24)
[2017-06-22] MEDS: QUETIAPINE FUMARATE 100MG TABLET PO SCH ×3 (02:06→17:24)
[2017-06-22] MEDS: VANCOMYCIN 1250MG in DEXTROSE 5% WATER 250ML IV SCH ×2 (02:06→14:06)
[2017-06-22] MEDS: SODIUM CHLORIDE 0.45% 1,000 ML IV SCH ×2 (02:47→17:56)
[2017-06-22] MEDS: PROPOFOL 10MG/ML 100ML 100 ML IV PRN ×6 (03:04→22:10)
[2017-06-22] MEDS: MORPHINE SULFATE 100 MG in DEXT 5% WATER 90 ML IV PRN ×2 (04:05→17:03)
[2017-06-22] MEDS: MIDAZOLAM HCL 100 MG in DEXT 5% WATER 80 ML IV PRN ×2 (04:06→18:44)
[2017-06-22] MEDS: VALPROATE SODIUM 250MG/5ML UDC PO SCH ×4 (05:52→23:50)
[2017-06-22] MEDS: METHYLPREDNISOLONE SOD SUCC 125 MG/2 ML VIAL IV SCH ×4 (05:52→23:50)
[2017-06-22] MEDS: METOPROLOL TARTRATE 50MG TABLET PO SCH ×3 (05:52→21:17)
[2017-06-22] MEDS: SODIUM CHLORIDE 0.9% INJ 3ML FLUSH IVF SCH ×3 (05:52→21:16)
[2017-06-22] MEDS: CALAMINE LOTION 120ML TOP SCH ×3 (05:53→21:17)
[2017-06-22] MEDS: BLOOD SUGAR DIAGNOSTIC STRIP TEST SCH ×4 (05:58→23:48)
[2017-06-22 06:10] LABS: BASOPHILS % 0.6 % (0.0-2.0); EOSINOPHILS % 0.4 % (0.0-5.0); HEMATOCRIT. 30.6 % (42.0-52.0); HEMOGLOBIN. 10.1 g/dL (14.0-18.0); LYMPHOCYTES % 23.7 % (20.0-50.0); MEAN CORPUSCULAR HEMOGLOBIN 28.5 pg (28.0-32.0); MEAN CORPUSCULAR VOLUME 86.4 fL (80.0-94.0); MONOCYTES % 8.9 % (2.0-8.0); NEUTROPHILS % 66.4 % (40.0-76.0); PLATELET 264 x1000/uL (130-400); RED BLOOD CELL COUNT 3.54 mill/uL (4.7-6.1); RED CELL DISTRIBUTION WIDTH 21.2 % (11.6-14.6)
[2017-06-22] MEDS: METOCLOPRAMIDE HCL 10MG/2ML VIAL IV SCH ×4 (06:24→23:50)
[2017-06-22 07:12] LABS: CARBON DIOXIDE 34 mEq/L (21-32); CHLORIDE 102 mEq/L (98-107)
[2017-06-22] MEDS: FAMOTIDINE 20MG/2ML VIAL IV SCH ×2 (09:28→21:16)
[2017-06-22] MEDS: RISPERIDONE 1MG TABLET PO SCH ×2 (09:28→21:16)
[2017-06-22] MEDS: OLANZAPINE 10MG TABLET PO SCH ×2 (09:28→16:29)
[2017-06-22] MEDS: HALOPERIDOL 5MG TABLET PO SCH ×3 (09:39→16:29)
[2017-06-22 17:04] LABS: CARBON DIOXIDE 32 mEq/L (21-32); CHLORIDE 103 mEq/L (98-107)
[2017-06-22] MEDS: BENZTROPINE MESYLATE 1MG TABLET PO SCH (21:16)
[2017-06-22] MEDS: PHENYTOIN SODIUM 300MG in SODIUM CHLORIDE 0.9% 50ML IV SCH (21:16)
[2017-06-23] VITALS (48 sets, daily range): BP systolic 113–156; BP diastolic 68–104
[2017-06-23] MEDS: IPRATROPIUM/ALBUTEROL 0.5-3(2.5)MG/3ML NEB HHN SCH ×6 (00:23→20:33)
[2017-06-23] MEDS: QUETIAPINE FUMARATE 100MG TABLET PO SCH ×3 (01:22→17:54)
[2017-06-23] MEDS: QUETIAPINE FUMARATE 50MG TABLET PO SCH ×3 (01:22→17:54)
[2017-06-23] MEDS: VANCOMYCIN 1250MG in DEXTROSE 5% WATER 250ML IV SCH ×2 (01:22→14:40)
[2017-06-23] MEDS: PROPOFOL 10MG/ML 100ML 100 ML IV PRN ×5 (01:44→20:20)
[2017-06-23] MEDS: METOPROLOL TARTRATE 50MG TABLET PO SCH ×3 (05:38→22:00)
[2017-06-23] MEDS: SODIUM CHLORIDE 0.9% INJ 3ML FLUSH IVF SCH ×3 (05:39→22:19)
[2017-06-23] MEDS: BLOOD SUGAR DIAGNOSTIC STRIP TEST SCH ×3 (05:43→18:12)
[2017-06-23] MEDS: INSULIN LISPRO 100 UNITS/ML SUBCUT SCH ×3 (05:43→18:00)
[2017-06-23] MEDS: METOCLOPRAMIDE HCL 10MG/2ML VIAL IV SCH ×4 (05:47→23:28)
[2017-06-23] MEDS: VALPROATE SODIUM 250MG/5ML UDC PO SCH ×4 (05:47→23:28)
[2017-06-23] MEDS: METHYLPREDNISOLONE SOD SUCC 125 MG/2 ML VIAL IV SCH ×4 (05:47→23:28)
[2017-06-23] MEDS: SODIUM CHLORIDE 0.45% 1,000 ML IV SCH ×2 (05:50→14:41)
[2017-06-23] MEDS: CALAMINE LOTION 120ML TOP SCH ×3 (05:51→22:19)
[2017-06-23] MEDS: MORPHINE SULFATE 100 MG in DEXT 5% WATER 90 ML IV PRN (05:51)
[2017-06-23] MEDS: HALOPERIDOL 5MG TABLET PO SCH ×3 (09:05→17:53)
[2017-06-23] MEDS: RISPERIDONE 1MG TABLET PO SCH ×2 (09:05→21:05)
[2017-06-23] MEDS: FAMOTIDINE 20MG/2ML VIAL IV SCH ×2 (09:05→21:05)
[2017-06-23] MEDS: OLANZAPINE 10MG TABLET PO SCH ×2 (09:05→17:00)
[2017-06-23] MEDS: MIDAZOLAM HCL 100 MG in DEXT 5% WATER 80 ML IV PRN ×2 (09:09→18:48)
[2017-06-23 09:19] LABS: HEMATOCRIT 31.5 % (42.0-52.0); HEMOGLOBIN 10.3 g/dL (14.0-18.0); MEAN CORPUSCULAR HEMOGLOBIN 27.9 pg (28.0-32.0); MEAN CORPUSCULAR VOLUME 85.6 fL (80.0-94.0); PLATELET 273 x1000/uL (130-400); RED BLOOD CELL COUNT 3.68 mill/uL (4.7-6.1)
[2017-06-23 09:24] LABS: INR 1.2; PROTHROMBIN TIME 12.5 sec (9.4-11.6)
[2017-06-23 10:25] LABS: BG BASE EXCESS 7.8 mmol/L (-2.0-2.0); BG CARBOXYHEMOGLOBIN 0.3 % (0.5-1.5); BG DEOXYHEMOGLOBIN 6.6 % (0.0-5.0); BG HCO3 ACT 32.8 mmol/L (22.0-26.0); BG METHEMOGLOBIN 0.1 % (0.0-1.5); BG OXYGEN SATURATION 93.4 % (92.0-98.5); BG PCO2 47.6 mmHg (35.0-45.0); BG PH 7.456 (7.350-7.450); BG PO2 72.9 mmHg (75.0-100.0); BG SAMPLE SITE RIGHT BRACHIAL; BG TIDAL VOLUME(mL) 550 mL; BG TOTAL HEMOGLOBIN 11.5 g/dL (12.0-18.0); BG VENT MODE VENT - A/C; BG VENT RATE 18 set
[2017-06-23] MEDS: FENTANYL CITRATE/PF 500 MCG in SODIUM CHLORIDE 0.9% 40 ML IV PRN ×2 (11:11→16:00)
[2017-06-23] MEDS ORDERED: ENOXAPARIN 40MG/0.4ML SYR SUBCUT SCH (12:00)
[2017-06-23] MEDS ORDERED: FENTANYL CITRATE/PF 1,000 MCG in SODIUM CHLORIDE 0.9% 80 ML IV PRN ×2 (15:15→15:39)
[2017-06-23] MEDS: FENTANYL CITRATE/PF 1,000 MCG in SODIUM CHLORIDE 0.9% 80 ML IV PRN (19:27)
[2017-06-23] MEDS: PHENYTOIN SODIUM 300MG in SODIUM CHLORIDE 0.9% 50ML IV SCH (21:05)
[2017-06-23] MEDS: BENZTROPINE MESYLATE 1MG TABLET PO SCH (21:05)
[2017-06-23] MEDS: VANCOMYCIN 1500MG in DEXTROSE 5% WATER 250ML IV SCH (23:27)
[2017-06-24] VITALS (48 sets, daily range): BP systolic 117–191; BP diastolic 68–119
[2017-06-24] MEDS: BLOOD SUGAR DIAGNOSTIC STRIP TEST SCH ×4 (00:40→17:16)
[2017-06-24] MEDS: FENTANYL CITRATE/PF 1,000 MCG in SODIUM CHLORIDE 0.9% 80 ML IV PRN ×6 (00:41→23:24)
[2017-06-24] MEDS: MIDAZOLAM HCL 100 MG in DEXT 5% WATER 80 ML IV PRN ×4 (00:42→18:45)
[2017-06-24] MEDS: IPRATROPIUM/ALBUTEROL 0.5-3(2.5)MG/3ML NEB HHN SCH ×5 (01:14→20:13)
[2017-06-24] MEDS: QUETIAPINE FUMARATE 50MG TABLET PO SCH ×3 (02:11→17:21)
[2017-06-24] MEDS: QUETIAPINE FUMARATE 100MG TABLET PO SCH ×3 (02:12→17:21)
[2017-06-24] MEDS: PROPOFOL 10MG/ML 100ML 100 ML IV PRN ×3 (03:39→17:22)
[2017-06-24] MEDS: VALPROATE SODIUM 250MG/5ML UDC PO SCH ×3 (05:30→17:21)
[2017-06-24] MEDS: METHYLPREDNISOLONE SOD SUCC 125 MG/2 ML VIAL IV SCH ×3 (05:30→17:21)
[2017-06-24] MEDS: METOCLOPRAMIDE HCL 10MG/2ML VIAL IV SCH ×3 (05:30→17:21)
[2017-06-24] MEDS: INSULIN LISPRO 100 UNITS/ML SUBCUT SCH ×4 (05:31→17:16)
[2017-06-24] MEDS: SODIUM CHLORIDE 0.9% INJ 3ML FLUSH IVF SCH ×3 (05:31→22:05)
[2017-06-24] MEDS: CALAMINE LOTION 120ML TOP SCH ×3 (05:31→22:05)
[2017-06-24 06:20] LABS: BASOPHILS % 0.5 % (0.0-2.0); EOSINOPHILS % 0.2 % (0.0-5.0); HEMATOCRIT. 30.3 % (42.0-52.0); HEMOGLOBIN. 9.8 g/dL (14.0-18.0); LYMPHOCYTES % 22.4 % (20.0-50.0); MEAN CORPUSCULAR VOLUME 86.7 fL (80.0-94.0); MEAN PLATELET VOLUME 8.8 fl (7.4-10.4); MONOCYTES % 7.1 % (2.0-8.0); NEUTROPHILS % 69.8 % (40.0-76.0); PLATELET 247 x1000/uL (130-400); RED CELL DISTRIBUTION WIDTH 21.7 % (11.6-14.6)
[2017-06-24] MEDS: METOPROLOL TARTRATE 50MG TABLET PO SCH ×2 (06:33→13:00)
[2017-06-24 06:46] LABS: CARBON DIOXIDE 32 mEq/L (21-32); CHLORIDE 103 mEq/L (98-107)
[2017-06-24] MEDS: RISPERIDONE 1MG TABLET PO SCH ×2 (08:04→20:14)
[2017-06-24] MEDS: HALOPERIDOL 5MG TABLET PO SCH ×3 (08:04→16:04)
[2017-06-24] MEDS: OLANZAPINE 10MG TABLET PO SCH ×2 (08:04→16:04)
[2017-06-24] MEDS: ENOXAPARIN 40MG/0.4ML SYR SUBCUT SCH (08:04)
[2017-06-24] MEDS: VANCOMYCIN 1500MG in DEXTROSE 5% WATER 250ML IV SCH ×2 (08:05→20:15)
[2017-06-24] MEDS: FAMOTIDINE 20MG/2ML VIAL IV SCH ×2 (08:05→20:14)
[2017-06-24] MEDS: DOCUSATE SODIUM SUGAR FREE 100MG/10ML UDC PO PRN (09:09)
[2017-06-24] MEDS: LACTULOSE 20G/30ML UDC PO PRN ×2 (09:09→16:07)
[2017-06-24 10:40] LABS: PHOSPHORUS 3.3 mg/dL (2.5-4.9)
[2017-06-24] MEDS: LORAZEPAM 2MG/ML CPJ IM PRN (16:04)
[2017-06-24] MEDS: BENZTROPINE MESYLATE 1MG TABLET PO SCH (20:14)
[2017-06-24] MEDS: PHENYTOIN SODIUM 300MG in SODIUM CHLORIDE 0.9% 50ML IV SCH (23:19)
[2017-06-25] VITALS (47 sets, daily range): BP systolic 115–147; BP diastolic 70–109
[2017-06-25] MEDS: VALPROATE SODIUM 250MG/5ML UDC PO SCH ×5 (00:26→23:35)
[2017-06-25] MEDS: METOCLOPRAMIDE HCL 10MG/2ML VIAL IV SCH ×5 (00:26→23:35)
[2017-06-25] MEDS: METHYLPREDNISOLONE SOD SUCC 125 MG/2 ML VIAL IV SCH ×5 (00:27→23:35)
[2017-06-25] MEDS: BLOOD SUGAR DIAGNOSTIC STRIP TEST SCH ×5 (00:37→23:42)
[2017-06-25] MEDS: IPRATROPIUM/ALBUTEROL 0.5-3(2.5)MG/3ML NEB HHN SCH ×7 (00:48→23:51)
[2017-06-25] MEDS: INSULIN LISPRO 100 UNITS/ML SUBCUT SCH ×5 (00:52→23:43)
[2017-06-25] MEDS: PROPOFOL 10MG/ML 100ML 100 ML IV PRN ×5 (01:51→23:14)
[2017-06-25] MEDS: QUETIAPINE FUMARATE 50MG TABLET PO SCH ×3 (01:56→17:30)
[2017-06-25] MEDS: QUETIAPINE FUMARATE 100MG TABLET PO SCH ×3 (01:57→17:30)
[2017-06-25 04:56] LABS: HEMATOCRIT 32.9 % (42.0-52.0); HEMOGLOBIN 10.9 g/dL (14.0-18.0); MEAN CORPUSCULAR HEMOGLOBIN 28.5 pg (28.0-32.0); PLATELET 253 x1000/uL (130-400); RED BLOOD CELL COUNT 3.83 mill/uL (4.7-6.1); RED CELL DISTRIBUTION WIDTH 22.1 % (11.6-14.6)
[2017-06-25] MEDS: MIDAZOLAM HCL 100 MG in DEXT 5% WATER 80 ML IV PRN ×4 (04:57→23:48)
[2017-06-25] MEDS: FENTANYL CITRATE/PF 1,000 MCG in SODIUM CHLORIDE 0.9% 80 ML IV PRN ×5 (04:57→17:48)
[2017-06-25] MEDS: CALAMINE LOTION 120ML TOP SCH ×3 (05:45→21:24)
[2017-06-25 05:58] LABS: CARBON DIOXIDE 33 mEq/L (21-32); CHLORIDE 101 mEq/L (98-107)
[2017-06-25] MEDS: SODIUM CHLORIDE 0.9% INJ 3ML FLUSH IVF SCH ×3 (06:21→21:24)
[2017-06-25] MEDS: VANCOMYCIN 1500MG in DEXTROSE 5% WATER 250ML IV SCH ×2 (09:23→20:30)
[2017-06-25] MEDS: FAMOTIDINE 20MG/2ML VIAL IV SCH ×2 (09:23→20:30)
[2017-06-25] MEDS: HALOPERIDOL 5MG TABLET PO SCH ×3 (09:24→17:30)
[2017-06-25] MEDS: RISPERIDONE 1MG TABLET PO SCH ×2 (09:24→20:30)
[2017-06-25] MEDS: OLANZAPINE 10MG TABLET PO SCH ×2 (09:24→17:33)
[2017-06-25] MEDS: ENOXAPARIN 40MG/0.4ML SYR SUBCUT SCH (09:24)
[2017-06-25] MEDS: BENZTROPINE MESYLATE 1MG TABLET PO SCH (20:30)
[2017-06-25] MEDS: PHENYTOIN SODIUM 300MG in SODIUM CHLORIDE 0.9% 50ML IV SCH (20:39)
[2017-06-26] VITALS (47 sets, daily range): BP systolic 89–172; BP diastolic 15–107
[2017-06-26] MEDS: FENTANYL CITRATE/PF 1,000 MCG in SODIUM CHLORIDE 0.9% 80 ML IV PRN ×6 (00:54→20:18)
[2017-06-26] MEDS: QUETIAPINE FUMARATE 100MG TABLET PO SCH ×3 (02:09→18:06)
[2017-06-26] MEDS: QUETIAPINE FUMARATE 50MG TABLET PO SCH ×3 (02:09→18:06)
[2017-06-26] MEDS: PROPOFOL 10MG/ML 100ML 100 ML IV PRN ×4 (03:24→23:00)
[2017-06-26] MEDS: IPRATROPIUM/ALBUTEROL 0.5-3(2.5)MG/3ML NEB HHN SCH ×6 (04:25→23:53)
[2017-06-26] MEDS: CALAMINE LOTION 120ML TOP SCH ×3 (05:25→21:32)
[2017-06-26] MEDS: METOCLOPRAMIDE HCL 10MG/2ML VIAL IV SCH ×4 (05:25→23:20)
[2017-06-26] MEDS: METHYLPREDNISOLONE SOD SUCC 125 MG/2 ML VIAL IV SCH ×4 (05:25→23:20)
[2017-06-26] MEDS: VALPROATE SODIUM 250MG/5ML UDC PO SCH ×4 (05:25→23:21)
[2017-06-26] MEDS: BLOOD SUGAR DIAGNOSTIC STRIP TEST SCH ×3 (05:31→18:07)
[2017-06-26] MEDS: INSULIN LISPRO 100 UNITS/ML SUBCUT SCH ×3 (05:32→18:00)
[2017-06-26 05:52] LABS: INR 1.2; PARTIAL THROMBOPLASTIN TIME 24.9 sec (23.4-31.0); PROTHROMBIN TIME 12.7 sec (9.4-11.6)
[2017-06-26 07:39] LABS: CARBON DIOXIDE 31 mEq/L (21-32); CHLORIDE 102 mEq/L (98-107)
[2017-06-26 07:40] LABS: BASOPHILS % 0.6 % (0.0-2.0); EOSINOPHILS % 0.1 % (0.0-5.0); HEMATOCRIT. 33.2 % (42.0-52.0); HEMOGLOBIN. 10.8 g/dL (14.0-18.0); LYMPHOCYTES % 24.4 % (20.0-50.0); MEAN CORPUSCULAR HEMOGLOBIN 28.1 pg (28.0-32.0); MEAN CORPUSCULAR VOLUME 86.1 fL (80.0-94.0); MEAN PLATELET VOLUME 9.5 fl (7.4-10.4); MONOCYTES % 7.3 % (2.0-8.0); NEUTROPHILS % 67.6 % (40.0-76.0); PLATELET 246 x1000/uL (130-400); RED BLOOD CELL COUNT 3.85 mill/uL (4.7-6.1); RED CELL DISTRIBUTION WIDTH 21.9 % (11.6-14.6)
[2017-06-26] MEDS: MIDAZOLAM HCL 100 MG in DEXT 5% WATER 80 ML IV PRN ×3 (08:08→23:23)
[2017-06-26] MEDS: RISPERIDONE 1MG TABLET PO SCH ×2 (08:15→21:00)
[2017-06-26] MEDS: OLANZAPINE 10MG TABLET PO SCH ×2 (08:15→18:06)
[2017-06-26] MEDS: HALOPERIDOL 5MG TABLET PO SCH ×3 (08:15→18:06)
[2017-06-26] MEDS: FAMOTIDINE 20MG/2ML VIAL IV SCH ×2 (08:46→21:00)
[2017-06-26] MEDS: VANCOMYCIN 1500MG in DEXTROSE 5% WATER 250ML IV SCH ×2 (08:46→21:00)
[2017-06-26 09:27] LABS: BG BASE EXCESS 8.7 mmol/L (-2.0-2.0); BG CARBOXYHEMOGLOBIN 0.9 % (0.5-1.5); BG DEOXYHEMOGLOBIN 4.5 % (0.0-5.0); BG FRACTION INSPIRED OXYGEN 28; BG METHEMOGLOBIN 0.1 % (0.0-1.5); BG OXYGEN SATURATION 95.5 % (92.0-98.5); BG OXYHEMOGLOBIN 94.5 % (94.0-97.0); BG PCO2 49.3 mmHg (35.0-45.0); BG PH 7.456 (7.350-7.450); BG PO2 79.2 mmHg (75.0-100.0); BG SAMPLE SITE RIGHT RADIAL; BG TIDAL VOLUME(mL) 550 mL; BG TOTAL HEMOGLOBIN 13.1 g/dL (12.0-18.0); BG VENT MODE VENT - A/C; BG VENT RATE 16 set
[2017-06-26] MEDS ORDERED: DEXT 5%/0.45% NACL 1000ML 1,000 ML IV SCH (11:00)
[2017-06-26] MEDS ORDERED: DEXAMETHASONE 4MG/ML 1ML VIAL ONE (16:08)
[2017-06-26] MEDS ORDERED: FENTANYL CITRATE/PF 50MCG/ML 5ML VIAL ONE (16:15)
[2017-06-26] MEDS: LORAZEPAM 2MG/ML CPJ IM PRN ×2 (21:00→23:21)
[2017-06-26] MEDS: PHENYTOIN SODIUM 300MG in SODIUM CHLORIDE 0.9% 50ML IV SCH (21:30)
[2017-06-26] MEDS: BENZTROPINE MESYLATE 1MG TABLET PO SCH (21:31)
[2017-06-27] VITALS (75 sets, daily range): BP systolic 117–201; BP diastolic 51–180
[2017-06-27] MEDS: BLOOD SUGAR DIAGNOSTIC STRIP TEST SCH ×4 (00:11→18:00)
[2017-06-27] MEDS: INSULIN LISPRO 100 UNITS/ML SUBCUT SCH ×4 (00:17→18:00)
[2017-06-27] MEDS: PROPOFOL 10MG/ML 100ML 100 ML IV PRN ×3 (01:00→07:12)
[2017-06-27] MEDS: LORAZEPAM 2MG/ML CPJ IM PRN ×2 (01:15→04:00)
[2017-06-27] MEDS: QUETIAPINE FUMARATE 100MG TABLET PO SCH ×3 (02:41→17:58)
[2017-06-27] MEDS: QUETIAPINE FUMARATE 50MG TABLET PO SCH ×3 (02:42→17:58)
[2017-06-27] MEDS: IPRATROPIUM/ALBUTEROL 0.5-3(2.5)MG/3ML NEB HHN SCH ×5 (03:38→20:01)
[2017-06-27 06:09] LABS: BASOPHILS % 0.5 % (0.0-2.0); HEMATOCRIT. 35.3 % (42.0-52.0); HEMOGLOBIN. 11.7 g/dL (14.0-18.0); LYMPHOCYTES % 15.7 % (20.0-50.0); MEAN CORPUSCULAR HEMOGLOBIN 28.8 pg (28.0-32.0); MEAN CORPUSCULAR VOLUME 86.7 fL (80.0-94.0); MEAN PLATELET VOLUME 9.4 fl (7.4-10.4); MONOCYTES % 8.1 % (2.0-8.0); NEUTROPHILS % 75.7 % (40.0-76.0); PLATELET 250 x1000/uL (130-400); RED BLOOD CELL COUNT 4.07 mill/uL (4.7-6.1); RED CELL DISTRIBUTION WIDTH 22.3 % (11.6-14.6)
[2017-06-27] MEDS: MIDAZOLAM HCL 100 MG in DEXT 5% WATER 80 ML IV PRN ×4 (06:18→23:48)
[2017-06-27] MEDS: METHYLPREDNISOLONE SOD SUCC 125 MG/2 ML VIAL IV SCH (06:24)
[2017-06-27] MEDS: VALPROATE SODIUM 250MG/5ML UDC PO SCH ×3 (06:24→17:59)
[2017-06-27] MEDS: METOCLOPRAMIDE HCL 10MG/2ML VIAL IV SCH ×3 (06:24→17:59)
[2017-06-27] MEDS: CALAMINE LOTION 120ML TOP SCH ×3 (06:24→22:00)
[2017-06-27 06:40] LABS: CARBON DIOXIDE 30 mEq/L (21-32); CHLORIDE 101 mEq/L (98-107)
[2017-06-27] MEDS: FENTANYL CITRATE/PF 1,000 MCG in SODIUM CHLORIDE 0.9% 80 ML IV PRN ×7 (07:14→23:46)
[2017-06-27] MEDS: VANCOMYCIN 1500MG in DEXTROSE 5% WATER 250ML IV SCH ×2 (09:02→20:35)
[2017-06-27] MEDS: HALOPERIDOL 5MG TABLET PO SCH ×3 (09:02→17:00)
[2017-06-27] MEDS: OLANZAPINE 10MG TABLET PO SCH ×2 (09:02→17:59)
[2017-06-27] MEDS: RISPERIDONE 1MG TABLET PO SCH ×2 (09:17→20:36)
[2017-06-27] MEDS ORDERED: METHADONE HCL 5MG TABLET PO SCH (12:00)
[2017-06-27] MEDS: LORAZEPAM 2MG/ML CPJ IV PRN ×3 (12:36→22:17)
[2017-06-27] MEDS: METHYLPREDNISOLONE SOD SUCC 40 MG/ML VIAL IV SCH ×2 (14:38→22:17)
[2017-06-27] MEDS: METHADONE HCL 5MG TABLET PO SCH ×2 (14:39→22:18)
[2017-06-27] MEDS: DOCUSATE SODIUM SUGAR FREE 100MG/10ML UDC PO PRN (17:59)
[2017-06-27] MEDS: PHENYTOIN SODIUM 300MG in SODIUM CHLORIDE 0.9% 50ML IV SCH (20:35)
[2017-06-28] VITALS (58 sets, daily range): BP systolic 113–180; BP diastolic 68–129
[2017-06-28] MEDS: VALPROATE SODIUM 250MG/5ML UDC PO SCH ×4 (00:03→17:32)
[2017-06-28] MEDS: METOCLOPRAMIDE HCL 10MG/2ML VIAL IV SCH ×4 (00:03→17:32)
[2017-06-28] MEDS: BLOOD SUGAR DIAGNOSTIC STRIP TEST SCH ×5 (00:09→23:59)
[2017-06-28] MEDS: LORAZEPAM 2MG/ML CPJ IV PRN ×9 (00:18→23:02)
[2017-06-28] MEDS: IPRATROPIUM/ALBUTEROL 0.5-3(2.5)MG/3ML NEB HHN SCH ×6 (00:19→20:49)
[2017-06-28] MEDS: QUETIAPINE FUMARATE 100MG TABLET PO SCH ×3 (01:29→17:33)
[2017-06-28] MEDS: QUETIAPINE FUMARATE 50MG TABLET PO SCH ×3 (01:29→17:33)
[2017-06-28] MEDS: FENTANYL CITRATE/PF 1,000 MCG in SODIUM CHLORIDE 0.9% 80 ML IV PRN ×6 (03:20→21:26)
[2017-06-28] MEDS: METHYLPREDNISOLONE SOD SUCC 40 MG/ML VIAL IV SCH ×3 (05:25→21:26)
[2017-06-28] MEDS: METHADONE HCL 5MG TABLET PO SCH ×3 (05:26→21:27)
[2017-06-28] MEDS: CALAMINE LOTION 120ML TOP SCH ×3 (05:26→21:28)
[2017-06-28] MEDS: INSULIN LISPRO 100 UNITS/ML SUBCUT SCH ×5 (05:40→23:59)
[2017-06-28] MEDS: MIDAZOLAM HCL 100 MG in DEXT 5% WATER 80 ML IV PRN ×3 (06:33→22:35)
[2017-06-28] MEDS: HALOPERIDOL 5MG TABLET PO SCH ×3 (08:08→16:39)
[2017-06-28] MEDS: RISPERIDONE 1MG TABLET PO SCH ×2 (08:08→21:26)
[2017-06-28] MEDS: OLANZAPINE 10MG TABLET PO SCH ×2 (08:08→16:39)
[2017-06-28 08:09] LABS: BG BASE EXCESS 7.9 mmol/L (-2.0-2.0); BG CARBOXYHEMOGLOBIN 0.9 % (0.5-1.5); BG DEOXYHEMOGLOBIN 8.4 % (0.0-5.0); BG FRACTION INSPIRED OXYGEN 28; BG HCO3 ACT 31.8 mmol/L (22.0-26.0); BG METHEMOGLOBIN 0.2 % (0.0-1.5); BG OXYGEN SATURATION 91.5 % (92.0-98.5); BG OXYHEMOGLOBIN 90.5 % (94.0-97.0); BG PCO2 41.6 mmHg (35.0-45.0); BG PH 7.501 (7.350-7.450); BG PO2 59.1 mmHg (75.0-100.0); BG SAMPLE SITE LEFT BRACHIAL; BG TIDAL VOLUME(mL) 550 mL; BG TOTAL HEMOGLOBIN 11.7 g/dL (12.0-18.0); BG VENT MODE VENT - A/C; BG VENT RATE 16 set
[2017-06-28] MEDS: ENOXAPARIN 40MG/0.4ML SYR SUBCUT SCH (08:10)
[2017-06-28] MEDS: PHENYTOIN SODIUM 300MG in SODIUM CHLORIDE 0.9% 50ML IV SCH (21:16)
[2017-06-28] MEDS: PROPOFOL 10MG/ML 100ML 100 ML IV PRN (23:04)
[2017-06-29] VITALS (49 sets, daily range): BP systolic 105–181; BP diastolic 65–127
[2017-06-29] MEDS: IPRATROPIUM/ALBUTEROL 0.5-3(2.5)MG/3ML NEB HHN SCH ×7 (00:36→23:37)
[2017-06-29] MEDS: QUETIAPINE FUMARATE 100MG TABLET PO SCH ×2 (01:02→09:21)
[2017-06-29] MEDS: METOCLOPRAMIDE HCL 10MG/2ML VIAL IV SCH ×5 (01:02→23:56)
[2017-06-29] MEDS: QUETIAPINE FUMARATE 50MG TABLET PO SCH ×2 (01:02→09:21)
[2017-06-29] MEDS: VALPROATE SODIUM 250MG/5ML UDC PO SCH ×5 (01:02→23:56)
[2017-06-29] MEDS: FENTANYL CITRATE/PF 1,000 MCG in SODIUM CHLORIDE 0.9% 80 ML IV PRN ×4 (01:04→11:26)
[2017-06-29] MEDS: PROPOFOL 10MG/ML 100ML 100 ML IV PRN ×5 (01:27→22:13)
[2017-06-29] MEDS: LORAZEPAM 2MG/ML CPJ IV PRN ×6 (05:07→20:31)
[2017-06-29] MEDS: METHYLPREDNISOLONE SOD SUCC 40 MG/ML VIAL IV SCH ×3 (05:35→22:02)
[2017-06-29] MEDS: METHADONE HCL 5MG TABLET PO SCH ×3 (05:36→22:04)
[2017-06-29] MEDS: INSULIN LISPRO 100 UNITS/ML SUBCUT SCH ×4 (05:49→23:49)
[2017-06-29] MEDS: BLOOD SUGAR DIAGNOSTIC STRIP TEST SCH ×4 (05:50→23:49)
[2017-06-29] MEDS: CALAMINE LOTION 120ML TOP SCH ×3 (05:56→22:05)
[2017-06-29] MEDS: MIDAZOLAM HCL 100 MG in DEXT 5% WATER 80 ML IV PRN ×2 (05:56→20:26)
[2017-06-29 07:07] LABS: BASOPHILS % 0.7 % (0.0-2.0); EOSINOPHILS % 0.9 % (0.0-5.0); HEMATOCRIT. 32.2 % (42.0-52.0); HEMOGLOBIN. 10.3 g/dL (14.0-18.0); LYMPHOCYTES % 25.2 % (20.0-50.0); MEAN CORPUSCULAR HEMOGLOBIN 28.6 pg (28.0-32.0); MEAN CORPUSCULAR VOLUME 89.2 fL (80.0-94.0); MEAN PLATELET VOLUME 10.2 fl (7.4-10.4); MONOCYTES % 7.6 % (2.0-8.0); NEUTROPHILS % 65.6 % (40.0-76.0); PLATELET 138 x1000/uL (130-400); RED BLOOD CELL COUNT 3.61 mill/uL (4.7-6.1); RED CELL DISTRIBUTION WIDTH 22.4 % (11.6-14.6)
[2017-06-29 07:15] LABS: CARBON DIOXIDE 29 mEq/L (21-32); CHLORIDE 103 mEq/L (98-107)
[2017-06-29 07:16] LABS: BG BASE EXCESS 7.5 mmol/L (-2.0-2.0); BG CARBOXYHEMOGLOBIN 0.3 % (0.5-1.5); BG DEOXYHEMOGLOBIN 4.5 % (0.0-5.0); BG HCO3 ACT 33.4 mmol/L (22.0-26.0); BG METHEMOGLOBIN 0.1 % (0.0-1.5); BG OXYGEN SATURATION 95.5 % (92.0-98.5); BG OXYHEMOGLOBIN 95.1 % (94.0-97.0); BG PCO2 53.9 mmHg (35.0-45.0); BG PO2 83.7 mmHg (75.0-100.0); BG SAMPLE SITE RIGHT RADIAL; BG TIDAL VOLUME(mL) 550 mL; BG TOTAL HEMOGLOBIN 10.8 g/dL (12.0-18.0); BG VENT MODE VENT - A/C; BG VENT RATE 12 set
[2017-06-29] MEDS: RISPERIDONE 1MG TABLET PO SCH (09:21)
[2017-06-29] MEDS: OLANZAPINE 10MG TABLET PO SCH ×2 (09:21→17:21)
[2017-06-29] MEDS: DOCUSATE SODIUM SUGAR FREE 100MG/10ML UDC PO PRN ×2 (09:21→17:21)
[2017-06-29] MEDS: HALOPERIDOL 5MG TABLET PO SCH (09:21)
[2017-06-29] MEDS ORDERED: HALOPERIDOL LACTATE 5MG/ML VIAL IM PRN (10:15)
[2017-06-29] MEDS ORDERED: SODIUM BICARBONATE 4.2% 5 MEQ/10 ML DISP.SYRIN IV ONE (10:50)
[2017-06-29] MEDS: LANSOPRAZOLE 15MG DR CAPSULE NG SCH (11:46)
[2017-06-29] MEDS ORDERED: METHADONE HCL 5MG TABLET PO SCH (14:00)
[2017-06-29] MEDS: HALOPERIDOL LACTATE 5MG/ML VIAL IM PRN ×2 (15:46→21:48)
[2017-06-29] MEDS: MORPHINE SULFATE 4 MG/ML CPJ (NOT FOR IM USE) IV PRN ×2 (17:23→19:54)
[2017-06-29] MEDS: PHENYTOIN SODIUM 300MG in SODIUM CHLORIDE 0.9% 50ML IV SCH (20:14)
[2017-06-30] VITALS (53 sets, daily range): BP systolic 110–179; BP diastolic 74–128
[2017-06-30] MEDS: LORAZEPAM 2MG/ML CPJ IV PRN ×6 (00:48→21:49)
[2017-06-30] MEDS: PROPOFOL 10MG/ML 100ML 100 ML IV PRN ×4 (01:01→11:10)
[2017-06-30] MEDS: IPRATROPIUM/ALBUTEROL 0.5-3(2.5)MG/3ML NEB HHN SCH ×5 (03:03→20:39)
[2017-06-30] MEDS: MIDAZOLAM HCL 100 MG in DEXT 5% WATER 80 ML IV PRN (03:19)
[2017-06-30] MEDS: MORPHINE SULFATE 4 MG/ML CPJ (NOT FOR IM USE) IV PRN ×7 (03:34→21:50)
[2017-06-30 05:29] LABS: BASOPHILS % 0.7 % (0.0-2.0); EOSINOPHILS % 1.9 % (0.0-5.0); HEMATOCRIT. 34.3 % (42.0-52.0); HEMOGLOBIN. 11.2 g/dL (14.0-18.0); LYMPHOCYTES % 24.6 % (20.0-50.0); MEAN CORPUSCULAR HEMOGLOBIN 28.6 pg (28.0-32.0); MEAN CORPUSCULAR VOLUME 87.4 fL (80.0-94.0); MEAN PLATELET VOLUME 9.3 fl (7.4-10.4); MONOCYTES % 6.4 % (2.0-8.0); NEUTROPHILS % 66.4 % (40.0-76.0); PLATELET 176 x1000/uL (130-400); RED BLOOD CELL COUNT 3.92 mill/uL (4.7-6.1); RED CELL DISTRIBUTION WIDTH 22.4 % (11.6-14.6)
[2017-06-30] MEDS: HALOPERIDOL LACTATE 5MG/ML VIAL IM PRN ×3 (05:33→18:18)
[2017-06-30] MEDS: METOCLOPRAMIDE HCL 10MG/2ML VIAL IV SCH ×3 (05:33→17:05)
[2017-06-30] MEDS: METHYLPREDNISOLONE SOD SUCC 40 MG/ML VIAL IV SCH ×2 (05:33→21:48)
[2017-06-30] MEDS: VALPROATE SODIUM 250MG/5ML UDC PO SCH ×3 (05:34→17:05)
[2017-06-30] MEDS: METHADONE HCL 5MG TABLET PO SCH ×3 (05:34→21:48)
[2017-06-30] MEDS: INSULIN LISPRO 100 UNITS/ML SUBCUT SCH ×3 (06:00→17:07)
[2017-06-30 06:04] LABS: CARBON DIOXIDE 31 mEq/L (21-32); CHLORIDE 104 mEq/L (98-107)
[2017-06-30] MEDS: BLOOD SUGAR DIAGNOSTIC STRIP TEST SCH ×3 (06:29→17:06)
[2017-06-30] MEDS: CALAMINE LOTION 120ML TOP SCH ×3 (06:45→21:49)
[2017-06-30] MEDS: OLANZAPINE 10MG TABLET PO SCH ×2 (08:54→17:05)
[2017-06-30] MEDS: LANSOPRAZOLE 15MG DR CAPSULE NG SCH (08:54)
[2017-06-30] MEDS: LACTULOSE 20G/30ML UDC PO PRN ×2 (11:47→17:05)
[2017-06-30] MEDS ORDERED: FUROSEMIDE 40MG/4ML VIAL IVP SCH (12:30)
[2017-06-30] MEDS ORDERED: PROPOFOL 10MG/ML 100ML 100 ML IV PRN (19:30)
[2017-06-30] MEDS: PHENYTOIN SODIUM 300MG in SODIUM CHLORIDE 0.9% 50ML IV SCH (21:48)
[2017-07-01] VITALS (32 sets, daily range): BP systolic 110–167; BP diastolic 48–113
[2017-07-01] MEDS: METOCLOPRAMIDE HCL 10MG/2ML VIAL IV SCH ×4 (00:14→17:25)
[2017-07-01] MEDS: BLOOD SUGAR DIAGNOSTIC STRIP TEST SCH ×4 (00:14→17:26)
[2017-07-01] MEDS: IPRATROPIUM/ALBUTEROL 0.5-3(2.5)MG/3ML NEB HHN SCH ×6 (00:25→20:23)
[2017-07-01] MEDS: MORPHINE SULFATE 4 MG/ML CPJ (NOT FOR IM USE) IV PRN ×4 (02:33→19:57)
[2017-07-01] MEDS: LORAZEPAM 2MG/ML CPJ IV PRN ×5 (04:11→21:53)
[2017-07-01] MEDS: METHADONE HCL 5MG TABLET PO SCH ×3 (05:19→21:23)
[2017-07-01] MEDS: INSULIN LISPRO 100 UNITS/ML SUBCUT SCH ×4 (05:20→18:00)
[2017-07-01] MEDS: CALAMINE LOTION 120ML TOP SCH ×3 (05:20→21:24)
[2017-07-01 05:31] LABS: INR 1.2; PARTIAL THROMBOPLASTIN TIME 29.4 sec (23.4-31.0); PROTHROMBIN TIME 12.3 sec (9.4-11.6)
[2017-07-01] MEDS ORDERED: CEFAZOLIN 1000MG PREMIX 50 ML IV NR (07:00)
[2017-07-01] MEDS: LANSOPRAZOLE 15MG DR CAPSULE NG SCH (07:39)
[2017-07-01] MEDS: ENOXAPARIN 40MG/0.4ML SYR SUBCUT SCH (07:40)
[2017-07-01 07:54] LABS: BASOPHILS % 1.2 % (0.0-2.0); EOSINOPHILS % 2.3 % (0.0-5.0); HEMATOCRIT. 35.5 % (42.0-52.0); HEMOGLOBIN. 11.6 g/dL (14.0-18.0); LYMPHOCYTES % 26.4 % (20.0-50.0); MEAN CORPUSCULAR HEMOGLOBIN 28.7 pg (28.0-32.0); MEAN CORPUSCULAR VOLUME 88.2 fL (80.0-94.0); MEAN PLATELET VOLUME 9.3 fl (7.4-10.4); MONOCYTES % 5.7 % (2.0-8.0); NEUTROPHILS % 64.4 % (40.0-76.0); PLATELET 205 x1000/uL (130-400); RED BLOOD CELL COUNT 4.03 mill/uL (4.7-6.1); RED CELL DISTRIBUTION WIDTH 22.6 % (11.6-14.6)
[2017-07-01 08:06] LABS: CARBON DIOXIDE 34 mEq/L (21-32); CHLORIDE 102 mEq/L (98-107)
[2017-07-01] MEDS: METHYLPREDNISOLONE SOD SUCC 40 MG/ML VIAL IV SCH (08:44)
[2017-07-01] MEDS: OLANZAPINE 10MG TABLET PO SCH ×2 (08:57→17:25)
[2017-07-01] MEDS: VALPROATE SODIUM 250MG/5ML UDC PO SCH ×3 (08:57→17:25)
[2017-07-01] MEDS ORDERED: POTASSIUM CHLORIDE INJ 40 MEQ in DEXT 5% WATER 250 ML IV NR (11:30)
[2017-07-01] MEDS: DIPHENHYDRAMINE 50MG/ML VIAL IV PRN ×3 (12:03→20:50)
[2017-07-01] MEDS: LACTULOSE 20G/30ML UDC PO PRN (14:49)
[2017-07-01] MEDS: HALOPERIDOL LACTATE 5MG/ML VIAL IM PRN ×2 (15:20→21:53)
[2017-07-01] MEDS: DOCUSATE SODIUM SUGAR FREE 100MG/10ML UDC PO PRN (17:25)
[2017-07-01] MEDS: PHENYTOIN SODIUM 300MG in SODIUM CHLORIDE 0.9% 50ML IV SCH (20:50)
[2017-07-01] MEDS ORDERED: PROPOFOL 10MG/ML 100ML 100 ML IV PRN (23:00)
[2017-07-01] MEDS ORDERED: KETAMINE HCL 50 MG/ML 10ML IV ONE (23:00)
[2017-07-02] VITALS (23 sets, daily range): BP systolic 123–187; BP diastolic 71–117
[2017-07-02] MEDS: IPRATROPIUM/ALBUTEROL 0.5-3(2.5)MG/3ML NEB HHN SCH ×5 (00:20→20:30)
[2017-07-02] MEDS: LORAZEPAM 2MG/ML CPJ IV PRN ×7 (00:42→15:37)
[2017-07-02] MEDS: DIPHENHYDRAMINE 50MG/ML VIAL IV PRN ×2 (00:42→04:22)
[2017-07-02] MEDS: METOCLOPRAMIDE HCL 10MG/2ML VIAL IV SCH ×4 (00:46→17:44)
[2017-07-02] MEDS: BLOOD SUGAR DIAGNOSTIC STRIP TEST SCH ×4 (00:46→17:45)
[2017-07-02] MEDS ORDERED: METHADONE HCL 10MG TABLET PO NR (01:00)
[2017-07-02] MEDS: HALOPERIDOL LACTATE 5MG/ML VIAL IM PRN ×5 (02:52→21:32)
[2017-07-02] MEDS: DEXT 5%/0.45% NACL 1000ML 1,000 ML IV SCH ×2 (04:22→17:44)
[2017-07-02] MEDS: MORPHINE SULFATE 4 MG/ML CPJ (NOT FOR IM USE) IV PRN ×4 (04:23→16:47)
[2017-07-02] MEDS: INSULIN LISPRO 100 UNITS/ML SUBCUT SCH ×4 (05:23→18:00)
[2017-07-02] MEDS: METHADONE HCL 10MG TABLET PO SCH ×3 (06:13→21:17)
[2017-07-02] MEDS: CALAMINE LOTION 120ML TOP SCH ×3 (06:14→21:18)
[2017-07-02 07:16] LABS: BG BASE EXCESS 9.9 mmol/L (-2.0-2.0); BG CARBOXYHEMOGLOBIN 0.3 % (0.5-1.5); BG DEOXYHEMOGLOBIN 3.1 % (0.0-5.0); BG HCO3 ACT 35.7 mmol/L (22.0-26.0); BG METHEMOGLOBIN 0.3 % (0.0-1.5); BG OXYGEN SATURATION 96.9 % (92.0-98.5); BG OXYHEMOGLOBIN 96.3 % (94.0-97.0); BG PCO2 53.4 mmHg (35.0-45.0); BG PH 7.443 (7.350-7.450); BG PO2 91.8 mmHg (75.0-100.0); BG PRESSURE SUPPORT 18; BG SAMPLE SITE RIGHT RADIAL; BG TIDAL VOLUME(mL) 550 mL; BG TOTAL HEMOGLOBIN 12.5 g/dL (12.0-18.0); BG VENT MODE VENT - SIMV; BG VENT RATE 8 set
[2017-07-02] MEDS: LANSOPRAZOLE 15MG DR CAPSULE NG SCH (07:50)
[2017-07-02 08:05] LABS: BASOPHILS % 1.1 % (0.0-2.0); EOSINOPHILS % 2.6 % (0.0-5.0); HEMATOCRIT. 37.4 % (42.0-52.0); HEMOGLOBIN. 12.2 g/dL (14.0-18.0); LYMPHOCYTES % 27.6 % (20.0-50.0); MEAN CORPUSCULAR HEMOGLOBIN 28.7 pg (28.0-32.0); MEAN CORPUSCULAR VOLUME 87.8 fL (80.0-94.0); MEAN PLATELET VOLUME 9.1 fl (7.4-10.4); MONOCYTES % 7.9 % (2.0-8.0); NEUTROPHILS % 60.8 % (40.0-76.0); PLATELET 188 x1000/uL (130-400); RED BLOOD CELL COUNT 4.26 mill/uL (4.7-6.1); RED CELL DISTRIBUTION WIDTH 22.6 % (11.6-14.6)
[2017-07-02] MEDS: ENOXAPARIN 40MG/0.4ML SYR SUBCUT SCH (08:18)
[2017-07-02] MEDS: VALPROATE SODIUM 250MG/5ML UDC PO SCH ×3 (08:19→17:44)
[2017-07-02] MEDS: OLANZAPINE 10MG TABLET PO SCH (08:19)
[2017-07-02 08:36] LABS: CARBON DIOXIDE 33 mEq/L (21-32); CHLORIDE 101 mEq/L (98-107)
[2017-07-02] MEDS ORDERED: METHYLPREDNISOLONE SOD SUCC 40 MG/ML VIAL IV SCH (09:00)
[2017-07-02] MEDS ORDERED: FENTANYL CITRATE/PF 50MCG/ML 2ML VIAL ONE (09:41)
[2017-07-02] MEDS ORDERED: CEFAZOLIN 1000MG PREMIX 50 ML IV ONE (09:41)
[2017-07-02] MEDS ORDERED: DIPHENHYDRAMINE 50MG/ML VIAL ONE (09:41)
[2017-07-02] MEDS ORDERED: MIDAZOLAM HCL 5 MG/5 ML VIAL ONE (09:41)
[2017-07-02 10:00] LABS: INR 1.2; PROTHROMBIN TIME 12.9 sec (9.4-11.6)
[2017-07-02] MEDS ORDERED: CEFAZOLIN SODIUM 1000MG/VIAL IV ONE (10:20)
[2017-07-02] MEDS ORDERED: MIDAZOLAM HCL 2 MG/2 ML VIAL IV PRN (10:32)
[2017-07-02] MEDS: LACTULOSE 20G/30ML UDC PO PRN (13:16)
[2017-07-02] MEDS: DOCUSATE SODIUM SUGAR FREE 100MG/10ML UDC PO PRN (13:16)
[2017-07-02 13:38] LABS: BG BASE EXCESS 10.5 mmol/L (-2.0-2.0); BG CARBOXYHEMOGLOBIN 0.7 % (0.5-1.5); BG CPAP (cmH2O) 0 cm(H2O); BG DEOXYHEMOGLOBIN 4.7 % (0.0-5.0); BG HCO3 ACT 36.7 mmol/L (22.0-26.0); BG METHEMOGLOBIN 0.3 % (0.0-1.5); BG OXYGEN SATURATION 95.3 % (92.0-98.5); BG OXYHEMOGLOBIN 94.3 % (94.0-97.0); BG PH 7.434 (7.350-7.450); BG PO2 76.2 mmHg (75.0-100.0); BG SAMPLE SITE RIGHT RADIAL; BG TOTAL HEMOGLOBIN 12.4 g/dL (12.0-18.0); BG VENT MODE VENT - CPAP
[2017-07-02] MEDS ORDERED: SIMETHICONE 40 MG/0.6 ML 30ML ONE (14:35)
[2017-07-02] MEDS ORDERED: SODIUM CHLORIDE 0.9% 10ML VIAL ONE (14:35)
[2017-07-02 16:00] LABS: BG BASE EXCESS 9.7 mmol/L (-2.0-2.0); BG CARBOXYHEMOGLOBIN 0.2 % (0.5-1.5); BG HCO3 ACT 36.1 mmol/L (22.0-26.0); BG METHEMOGLOBIN 0.3 % (0.0-1.5); BG OXYHEMOGLOBIN 96.5 % (94.0-97.0); BG PH 7.419 (7.350-7.450); BG PO2 93.9 mmHg (75.0-100.0); BG SAMPLE SITE RIGHT RADIAL; BG TOTAL HEMOGLOBIN 12.2 g/dL (12.0-18.0); BG VENT MODE MASK - TRACH
[2017-07-02] MEDS ORDERED: HALOPERIDOL LACTATE 5MG/ML VIAL IM NR (17:45)
[2017-07-02] MEDS ORDERED: LORAZEPAM 2MG/ML CPJ IV PRN (18:15)
[2017-07-02] MEDS: BENZTROPINE MESYLATE 1MG TABLET PEG SCH (18:33)
[2017-07-02] MEDS: DIAZEPAM 5 MG/ML 2ML CPJ IV PRN (18:38)
[2017-07-02] MEDS ORDERED: DEXT 5%/0.45% NACL 1000ML 1,000 ML IV SCH (19:00)
[2017-07-02] MEDS ORDERED: RISPERIDONE 1MG TABLET PO SCH (21:00)
[2017-07-02] MEDS: PHENYTOIN SODIUM 300MG in SODIUM CHLORIDE 0.9% 50ML IV SCH (21:16)
[2017-07-03] VITALS (12 sets, daily range): BP systolic 131–150; BP diastolic 85–102
[2017-07-03] MEDS: IPRATROPIUM/ALBUTEROL 0.5-3(2.5)MG/3ML NEB HHN SCH ×6 (00:06→20:51)
[2017-07-03] MEDS: BLOOD SUGAR DIAGNOSTIC STRIP TEST SCH ×4 (00:06→18:09)
[2017-07-03] MEDS: METOCLOPRAMIDE HCL 10MG/2ML VIAL IV SCH ×4 (00:07→18:35)
[2017-07-03] MEDS: BENZTROPINE MESYLATE 1MG TABLET PEG SCH ×4 (00:07→18:36)
[2017-07-03] MEDS: DIAZEPAM 5 MG/ML 2ML CPJ IV PRN (01:54)
[2017-07-03] MEDS: METHADONE HCL 10MG TABLET PO SCH (06:00)
[2017-07-03] MEDS: INSULIN LISPRO 100 UNITS/ML SUBCUT SCH ×4 (06:00→18:37)
[2017-07-03 06:42] LABS: BASOPHILS % 0.8 % (0.0-2.0); EOSINOPHILS % 2.7 % (0.0-5.0); HEMATOCRIT. 32.5 % (42.0-52.0); HEMOGLOBIN. 10.9 g/dL (14.0-18.0); MEAN CORPUSCULAR HEMOGLOBIN 29.3 pg (28.0-32.0); MEAN CORPUSCULAR VOLUME 87.5 fL (80.0-94.0); MEAN PLATELET VOLUME 8.9 fl (7.4-10.4); MONOCYTES % 7.1 % (2.0-8.0); NEUTROPHILS % 66.4 % (40.0-76.0); PLATELET 181 x1000/uL (130-400); RED BLOOD CELL COUNT 3.72 mill/uL (4.7-6.1); RED CELL DISTRIBUTION WIDTH 21.8 % (11.6-14.6)
[2017-07-03 07:12] LABS: CARBON DIOXIDE 33 mEq/L (21-32); CHLORIDE 99 mEq/L (98-107)
[2017-07-03] MEDS: HALOPERIDOL LACTATE 5MG/ML VIAL IM PRN ×2 (08:51→23:36)
[2017-07-03] MEDS ORDERED: METHYLPREDNISOLONE SOD SUCC 40 MG/ML VIAL IV SCH (09:00)
[2017-07-03] MEDS: VALPROATE SODIUM 250MG/5ML UDC GT SCH ×3 (09:45→21:09)
[2017-07-03] MEDS: LANSOPRAZOLE 15MG DR CAPSULE GT SCH (09:45)
[2017-07-03] MEDS: ENOXAPARIN 40MG/0.4ML SYR SUBCUT SCH (09:45)
[2017-07-03 10:21] LABS: BG BASE EXCESS 5.1 mmol/L (-2.0-2.0); BG CARBOXYHEMOGLOBIN 0.1 % (0.5-1.5); BG DEOXYHEMOGLOBIN 1.9 % (0.0-5.0); BG FRACTION INSPIRED OXYGEN 40; BG HCO3 ACT 30.2 mmol/L (22.0-26.0); BG METHEMOGLOBIN 0.4 % (0.0-1.5); BG OXYGEN SATURATION 98.1 % (92.0-98.5); BG OXYHEMOGLOBIN 97.6 % (94.0-97.0); BG PH 7.426 (7.350-7.450); BG PO2 121.5 mmHg (75.0-100.0); BG SAMPLE SITE RIGHT BRACHIAL; BG TOTAL HEMOGLOBIN 11.6 g/dL (12.0-18.0); BG VENT MODE MASK - AEROSOL
[2017-07-03] MEDS: METHADONE HCL 10MG TABLET GT SCH ×2 (14:00→21:10)
[2017-07-03] MEDS: GUAIFENESIN 200MG/10ML SUGAR FREE UDC GT SCH (15:54)
[2017-07-03] MEDS ORDERED: POTASSIUM CHLORIDE 20MEQ/PACKET GT NR (17:26)
[2017-07-03] MEDS ORDERED: CLONIDINE 0.1MG TABLET GT PRN (19:15)
[2017-07-03] MEDS: PHENYTOIN SODIUM 300MG in SODIUM CHLORIDE 0.9% 50ML IV SCH (21:09)
[2017-07-03] MEDS ORDERED: SODIUM CHLORIDE 10% FOR INH 15ML VIAL NEB INH NR (23:00)
[2017-07-03] MEDS: DIPHENHYDRAMINE 50MG/ML VIAL IV PRN (23:36)
[2017-07-04] VITALS (12 sets, daily range): BP systolic 135–165; BP diastolic 82–99
[2017-07-04] MEDS: GUAIFENESIN 200MG/10ML SUGAR FREE UDC GT SCH ×5 (00:02→23:19)
[2017-07-04] MEDS: METOCLOPRAMIDE HCL 10MG/2ML VIAL IV SCH ×5 (00:02→23:19)
[2017-07-04] MEDS: BLOOD SUGAR DIAGNOSTIC STRIP TEST SCH ×5 (00:03→23:22)
[2017-07-04] MEDS: BENZTROPINE MESYLATE 1MG TABLET PEG SCH ×5 (00:03→23:54)
[2017-07-04] MEDS: INSULIN LISPRO 100 UNITS/ML SUBCUT SCH ×4 (00:05→17:14)
[2017-07-04] MEDS: IPRATROPIUM/ALBUTEROL 0.5-3(2.5)MG/3ML NEB HHN SCH ×6 (00:36→21:14)
[2017-07-04] MEDS: ACETYLCYSTEINE 100MG/ML 10% VIAL 4ML INH SCH ×3 (00:36→17:18)
[2017-07-04] MEDS: DIAZEPAM 5 MG/ML 2ML CPJ IV PRN ×4 (03:26→23:20)
[2017-07-04] MEDS: HALOPERIDOL LACTATE 5MG/ML VIAL IM PRN ×3 (05:42→20:47)
[2017-07-04] MEDS: METHADONE HCL 10MG TABLET GT SCH ×3 (05:43→22:03)
[2017-07-04] MEDS: DIPHENHYDRAMINE 50MG/ML VIAL IV PRN ×4 (06:42→23:19)
[2017-07-04] MEDS: ENOXAPARIN 40MG/0.4ML SYR SUBCUT SCH ×2 (08:00→09:07)
[2017-07-04] MEDS: LANSOPRAZOLE 15MG DR CAPSULE GT SCH (08:00)
[2017-07-04] MEDS: VALPROATE SODIUM 250MG/5ML UDC GT SCH ×3 (08:00→20:48)
[2017-07-04] MEDS ORDERED: PHENYTOIN SODIUM 600 MG in SODIUM CHLORIDE 0.9% 100 ML IV SCH (10:00)
[2017-07-04] MEDS: PHENYTOIN SODIUM 300MG in SODIUM CHLORIDE 0.9% 50ML IV SCH (22:03)
[2017-07-05] VITALS (12 sets, daily range): BP systolic 122–160; BP diastolic 80–101
[2017-07-05] MEDS: HALOPERIDOL LACTATE 5MG/ML VIAL IM PRN ×3 (04:05→21:46)
[2017-07-05] MEDS: DIAZEPAM 5 MG/ML 2ML CPJ IV PRN ×3 (04:06→21:54)
[2017-07-05] MEDS: DIPHENHYDRAMINE 50MG/ML VIAL IV PRN ×4 (04:06→21:51)
[2017-07-05] MEDS: IPRATROPIUM/ALBUTEROL 0.5-3(2.5)MG/3ML NEB HHN SCH ×6 (04:50→21:23)
[2017-07-05] MEDS: BLOOD SUGAR DIAGNOSTIC STRIP TEST SCH ×3 (06:00→17:53)
[2017-07-05] MEDS: INSULIN LISPRO 100 UNITS/ML SUBCUT SCH ×4 (06:00→18:00)
[2017-07-05] MEDS: METHADONE HCL 10MG TABLET GT SCH ×3 (07:06→21:51)
[2017-07-05] MEDS: BENZTROPINE MESYLATE 1MG TABLET PEG SCH ×3 (07:06→18:02)
[2017-07-05] MEDS: METOCLOPRAMIDE HCL 10MG/2ML VIAL IV SCH ×3 (07:07→18:02)
[2017-07-05] MEDS: GUAIFENESIN 200MG/10ML SUGAR FREE UDC GT SCH ×3 (07:07→18:01)
[2017-07-05] MEDS: ACETYLCYSTEINE 100MG/ML 10% VIAL 4ML INH SCH ×3 (08:35→15:49)
[2017-07-05] MEDS: VALPROATE SODIUM 250MG/5ML UDC GT SCH ×3 (09:18→21:47)
[2017-07-05] MEDS: ENOXAPARIN 40MG/0.4ML SYR SUBCUT SCH (09:19)
[2017-07-05] MEDS: LANSOPRAZOLE 15MG DR CAPSULE GT SCH (09:19)
[2017-07-05 20:12] LABS: BASOPHILS % 0.9 % (0.0-2.0); EOSINOPHILS % 2.8 % (0.0-5.0); HEMOGLOBIN. 10.3 g/dL (14.0-18.0); LYMPHOCYTES % 22.2 % (20.0-50.0); MEAN CORPUSCULAR HEMOGLOBIN 28.9 pg (28.0-32.0); MEAN PLATELET VOLUME 9.1 fl (7.4-10.4); NEUTROPHILS % 65.1 % (40.0-76.0); PLATELET 141 x1000/uL (130-400); RED BLOOD CELL COUNT 3.57 mill/uL (4.7-6.1); RED CELL DISTRIBUTION WIDTH 21.3 % (11.6-14.6)
[2017-07-05 20:23] LABS: CARBON DIOXIDE 35 mEq/L (21-32); CHLORIDE 97 mEq/L (98-107)
[2017-07-05] MEDS: PHENYTOIN SODIUM 300MG in SODIUM CHLORIDE 0.9% 50ML IV SCH (21:56)
[2017-07-06] VITALS (12 sets, daily range): BP systolic 111–155; BP diastolic 73–98
[2017-07-06] MEDS: METOCLOPRAMIDE HCL 10MG/2ML VIAL IV SCH ×4 (00:24→18:00)
[2017-07-06] MEDS: BENZTROPINE MESYLATE 1MG TABLET PEG SCH ×4 (00:24→17:56)
[2017-07-06] MEDS: GUAIFENESIN 200MG/10ML SUGAR FREE UDC GT SCH ×4 (00:24→17:56)
[2017-07-06] MEDS: BLOOD SUGAR DIAGNOSTIC STRIP TEST SCH ×4 (00:24→17:49)
[2017-07-06] MEDS: IPRATROPIUM/ALBUTEROL 0.5-3(2.5)MG/3ML NEB HHN SCH ×6 (00:27→20:30)
[2017-07-06] MEDS: ACETYLCYSTEINE 100MG/ML 10% VIAL 4ML INH SCH ×3 (00:32→16:07)
[2017-07-06] MEDS: METHADONE HCL 10MG TABLET GT SCH ×3 (05:27→21:57)
[2017-07-06] MEDS: INSULIN LISPRO 100 UNITS/ML SUBCUT SCH ×4 (05:56→18:00)
[2017-07-06] MEDS: LANSOPRAZOLE 15MG DR CAPSULE GT SCH (08:27)
[2017-07-06] MEDS: VALPROATE SODIUM 250MG/5ML UDC GT SCH ×3 (08:27→20:46)
[2017-07-06] MEDS: ENOXAPARIN 40MG/0.4ML SYR SUBCUT SCH (08:44)
[2017-07-07] VITALS (10 sets, daily range): BP systolic 133–173; BP diastolic 48–97
[2017-07-07] MEDS: GUAIFENESIN 200MG/10ML SUGAR FREE UDC GT SCH ×4 (00:25→18:11)
[2017-07-07] MEDS: BENZTROPINE MESYLATE 1MG TABLET PEG SCH ×4 (00:27→18:10)
[2017-07-07] MEDS: ACETYLCYSTEINE 100MG/ML 10% VIAL 4ML INH SCH ×4 (00:30→20:27)
[2017-07-07] MEDS: IPRATROPIUM/ALBUTEROL 0.5-3(2.5)MG/3ML NEB HHN SCH ×7 (00:30→20:00)
[2017-07-07] MEDS: METHADONE HCL 10MG TABLET GT SCH (05:43)
[2017-07-07] MEDS: LANSOPRAZOLE 15MG DR CAPSULE GT SCH (05:44)
[2017-07-07] MEDS: BLOOD SUGAR DIAGNOSTIC STRIP TEST SCH ×4 (05:57→17:46)
[2017-07-07] MEDS: METOCLOPRAMIDE HCL 10MG/2ML VIAL IV SCH ×4 (06:00→18:00)
[2017-07-07] MEDS: INSULIN LISPRO 100 UNITS/ML SUBCUT SCH ×4 (06:16→18:01)
[2017-07-07] MEDS: VALPROATE SODIUM 250MG/5ML UDC GT SCH ×3 (10:36→21:30)
[2017-07-07] MEDS: ENOXAPARIN 40MG/0.4ML SYR SUBCUT SCH (10:37)
[2017-07-07] MEDS ORDERED: LACTATED RINGERS 1,000 ML IV SCH (18:30)
[2017-07-07] MEDS ORDERED: LORAZEPAM 2MG/ML CPJ IM PRN (22:45)
[2017-07-07] MEDS: HALOPERIDOL LACTATE 5MG/ML VIAL IM PRN (23:07)
[2017-07-07] MEDS: DIPHENHYDRAMINE 50MG/ML VIAL IV PRN (23:51)
[2017-07-07] MEDS ORDERED: DIAZEPAM 5 MG/ML 2ML CPJ IM SCH (23:55)
[2017-07-08] VITALS (7 sets, daily range): BP systolic 123–155; BP diastolic 93–117
[2017-07-08] MEDS: IPRATROPIUM/ALBUTEROL 0.5-3(2.5)MG/3ML NEB HHN SCH (00:30)
[2017-07-08] MEDS ORDERED: HYDRALAZINE 20MG/ML VIAL IV SCH (00:30)
[2017-07-08] MEDS: ACETYLCYSTEINE 100MG/ML 10% VIAL 4ML INH SCH (00:30)
== END 2017-07-08 04:37 | DRG 4 ==
LOC: ER 11:31 → CVICU 17:30 → EDBEDREQTM 17:34 → EDBEDREQ 17:34 → EDBEDREQSVC 17:34 → ENRESERV 19:17 → 7WST 06-04 19:51 → CVICU 06-05 01:07 → 5EST 07-02 19:00
PROVIDERS: ADMIT Family Medicine; ATTEND Family Medicine
PROC: 02HV33Z Insertion of Infusion Device into Superior Vena Cava, Percutaneous Approach (ICD-10-PCS; 2017-06-02)
PROC: B548ZZA Ultrasonography of Superior Vena Cava, Guidance (ICD-10-PCS; 2017-06-02)
PROC: 4A00X4Z Measurement of Central Nervous Electrical Activity, External Approach (ICD-10-PCS; 2017-06-04)
PROC: 5A1955Z Respiratory Ventilation, Greater than 96 Consecutive Hours (ICD-10-PCS; principal; 2017-06-12)
PROC: 0BH17EZ Insertion of Endotracheal Airway into Trachea, Via Natural or Artificial Opening (ICD-10-PCS; 2017-06-12)
PROC: 07B63ZX Excision of Left Axillary Lymphatic, Percutaneous Approach, Diagnostic (ICD-10-PCS; 2017-06-16)
PROC: 0B110F4 Bypass Trachea to Cutaneous with Tracheostomy Device, Open Approach (ICD-10-PCS; 2017-06-26)
PROC: 0BJ08ZZ Inspection of Tracheobronchial Tree, Via Natural or Artificial Opening Endoscopic (ICD-10-PCS; 2017-06-26)
PROC: 0GBG0ZZ Excision of Left Thyroid Gland Lobe, Open Approach (ICD-10-PCS; 2017-06-26)
PROC: 0W993ZX Drainage of Right Pleural Cavity, Percutaneous Approach, Diagnostic (ICD-10-PCS; 2017-06-29)
PROC: 0DH63UZ Insertion of Feeding Device into Stomach, Percutaneous Approach (ICD-10-PCS; 2017-07-02)
DX: A41.9 Sepsis, unspecified organism (principal); G93.40 Encephalopathy, unspecified; J15.212 Pneumonia due to Methicillin resistant Staphylococcus aureus; J90 Pleural effusion, not elsewhere classified; E44.0 Moderate protein-calorie malnutrition; C85.90 Non-Hodgkin lymphoma, unspecified, unspecified site; R18.8 Other ascites; K31.84 Gastroparesis; J96.01 Acute respiratory failure with hypoxia; F23 Brief psychotic disorder; D64.9 Anemia, unspecified; E11.43 Type 2 diabetes mellitus with diabetic autonomic (poly)neuropathy; E78.1 Pure hyperglyceridemia; F17.210 Nicotine dependence, cigarettes, uncomplicated; G40.909 Epilepsy, unspecified, not intractable, without status epilepticus; I10 Essential (primary) hypertension; K21.9 Gastro-esophageal reflux disease without esophagitis; M46.90 Unspecified inflammatory spondylopathy, site unspecified; B95.2 Enterococcus as the cause of diseases classified elsewhere; B96.89 Other specified bacterial agents as the cause of diseases classified elsewhere; Z16.21 Resistance to vancomycin; W06.XXXA Fall from bed, initial encounter; Z59.0 Homelessness; Z78.1 Physical restraint status; Z91.14 Patient's other noncompliance with medication regimen; Z91.19 Patient's noncompliance with other medical treatment and regimen; Z92.21 Personal history of antineoplastic chemotherapy; Z79.2 Long term (current) use of antibiotics; Z79.84 Long term (current) use of oral hypoglycemic drugs; Z79.899 Other long term (current) drug therapy; Z68.23 Body mass index [BMI] 23.0-23.9, adult; Z86.73 Personal history of transient ischemic attack (TIA), and cerebral infarction without residual deficits
CPT/HCPCS: 32555; 36415; 36569; 36600; 38505; 70450; 70490; 70553; 71010; 71250; 72170; 74000; 76604; 76937; 76942; 80048; 80051; 80053; 80076; 80165; 80185; 80202; 80305; 81001; 81003; 82040; 82140; 82375; 82550; 82607; 82805; 82945; 82962; 83036; 83615; 83735; 83880; 84100; 84157; 84443; 84478; 84484; 84550; 85025; 85027; 85610; 85730; 86850; 86900; 87040; 87070; 87077; 87086; 87186; 87205; 88108; 88305; 88312; 89050; 92610; 93005; 93970; 94002; 94003; 94640; 94664; 96361; 96372; 96374; 96375; 97116; 97162; 97167; 97530; 99285; A4216; A6261; A9577; C1725; G0482; J0171; J0330; J0360; J0456; J0690; J0696; J1100; J1165; J1200; J1630; J1650; J1815; J1940; J1953; J1956; J2060; J2250; J2270; J2543; J2704; J2765; J2920; J2930; J3010; J3370; J3480; J3490; J7030; J7040; J7050; J7060; J7131; J7608; J7620; A4315